=== PATIENT | female | born 2000 | race Caucasian/White ===

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

== ENCOUNTER 2023-04-20 14:36 | Emergency (ER) | payer MEDICAID, SELFPAY ==
[2023-04-20 14:37] VITALS: BP 140/85; PULSE 81; RESP 16; TEMP 36.2; O2SAT 100; BMI 33.6
--- NOTE | 2023-04-20 14:40 | RAD_ITS ---
HISTORY: PAIN. TECHNIQUE: XR Ankle Min 3 Views. COMPARISON: 06/11/2020. FINDINGS: BONES : No acute fracture identified. No osteochondral lesion of the talar dome. JOINTS: No dislocation. Joint spaces maintained. SOFT TISSUES: Diffuse soft tissue swelling. RAD/Ankle min 3 Views IMPRESSION: No acute fracture or dislocation identified in the left ankle. Electronically Signed: Valeri Malone MD at 14:56 EST ,
--- NOTE | 2023-04-20 17:10 | EDS_ITS ---
HPI History of Present Illness Chief Complaint: Lower Extremity Injury Informant: patient Narrative Narrative: 22-year-old female presenting to the emergency room with left ankle pain and injury. Patient states over the past month she has had 3 inversion injuries to the left ankle. Each resulting with pain near the lateral malleolus. Patient states he is continue to treated conservatively but today she felt a pop in thought that it was time to get evaluated. She denies any knee pain. No medial pain. PFSH PFSH Home Medications cephalexin 500 mg capsule 500 mg PO Q6 #40 CAPSULES 09/10/20 [Rx Last Taken Unknown] cranberry 400 mg capsule 400 mg PO DAILY 09/18/20 [History Last Taken Unknown] cyanocobalamin (vitamin B-12) 1,000 mcg capsule 1,000 mcg PO DAILY 09/18/20 [History Last Taken Unknown] cyclobenzaprine 10 mg tablet 10 mg PO TID PRN muscle spasm #12 tabs 09/18/20 [Rx Last Taken Unknown] Allergy/AdvReac Type Severity Reaction Status Date / Time No Known Allergies Allergy Verified 04/20/23 14:38 Family History Grandfather Heart disease Diabetes Mother Asthma Surgical History History of placement of ear tubes Social History household members: family and friend(s) current occupational status: employed current occupation: [employer] history of recent travel: No sexually active: Yes Smoking Status: Never smoker alcohol intake: never substance use type: does not use diet: low carbohydrate what type of physical activity do you participate in: none seatbelt use: always do you feel safe at home: Yes additional social history: single ROS ROS ED Constitutional Constitutional ED: Denies chills or weight loss Eyes Eyes: Denies change in vision or diplopia ENT ENT ED: Denies ear pain, rhinorrhea or sore throat Cardiovascular Cardiovascular: Denies chest pain, orthopnea, palpitations or racing heartbeat Respiratory/Chest Respiratory/Chest: Denies cough, dyspnea or orthopnea Gastrointestinal Gastrointestinal: Denies abdominal pain, diarrhea, nausea or vomiting Genitourinary Genitourinary ED: Denies dysuria, hematuria or urinary frequency Musculoskeletal Musculoskeletal: Reports other Details: See history of present illness ; Denies arthralgias or myalgias Integumentary Denies abscess or rash Neurologic Neurologic: Denies headache(s) or weakness Psychiatric Psychiatric: Denies anxiety, depression, suicidal ideation or suicidal thoughts Endocrine Endocrinology: Denies polydipsia, polyphagia or polyuria Allergic/Immunologic Allergic/Immunologic ED: Denies mouth swelling, tongue swelling or urticaria EXAM Physical Exam Const Vital Signs: 04/20/23 14:37 Temperature 97.2 F L Temperature Source Temporal Pulse Rate 81 Respiratory Rate 16 Blood Pressure 140/85 H Blood Pressure Mean 103 Pulse Ox 100 Oxygen Delivery Method Room Air Positive well nourished and well developed General Appearance ED: well developed HEENT Reports normocephalic, head/scalp atraumatic and moist mucous membranes Eyes PERRL and EOMs intact bilaterally Neck no lymphadenopathy, supple and no JVD Resp normal respiratory effort and clear to auscultation bilaterally Cardio regular rate, regular rhythm and no murmurs GI normal to inspection, nondistended, normoactive bowel sounds and non-tender Palpation: soft Back/Spine no CVA tenderness and normal ROM Extremity Extremity Narrative: Patient has no medial or posterior malleoli or tenderness. Achilles appears intact both on palpation and functionally with negative Alejo's test. No fifth metatarsal pain or fibular head pain. There is tenderness anteriorly and inferiorly to the lateral malleolus with some mild swelling. Neurovascularly intact General Extremety ED: Negative for edema General Extremity: Negative for edema Neuro oriented x3 and CN's II-XII intact bilaterally Sensorium / Orientation: alert Motor Exam: strength 5/5 throughout Psych mental status grossly normal Mood & Affect: Negative for depressed or tearful Skin no rashes or lesions noted and no wounds MDM MDM MDM Narrative Medical decision making narrative: My independent interpretation of the plain films of the left ankle is no acute fracture. Patient placed in an air splint. I advised her that she has injured the ankle multiple times in 1 month. This will most likely require greater than 10 to 14 days typically required for a basic ankle sprain. I recommend follow-up with primary care if continued symptoms. She may need physical therapy if immobilization is extended. Radiography Diagnostic Testing: Clinical Impression(s) from Imaging Studies Ankle X-Ray 04/20/23 14:40 IMPRESSION: No acute fracture or dislocation identified in the left ankle. Electronically Signed: Valeri Malone MD at 14:56 EST , Discharge Plan Triage Chief Complaint: Lower Extremity Injury ED Provider: Antoni Cameron Dx/Rx/DC Orders Clinical Impression: Ankle sprain, Acute ankle pain Instructions: ED Ankle Sprain (Adult) Prescriptions: No Action cranberry 400 mg capsule 400 mg PO DAILY Rx Instructions: administer with a meal cyanocobalamin (vitamin B-12) 1,000 mcg capsule 1,000 mcg PO DAILY cyclobenzaprine 10 mg tablet 10 mg PO TID PRN (Reason: muscle spasm) Qty: 12 0RF cephalexin 500 MG capsule 500 mg PO Q6 Qty: 40 0RF Primary Care Provider: Bryan José Referrals: Bryan José MD [Primary Care Provider] - 10-14 Days if not better Disposition Disposition: Home, Self Care
== END 2023-04-20 17:37 | disposition home or self-care (01) ==
LOC: ED 17:22
PROVIDERS: Emergency Provider Emergency Medicine; PCP Family Medicine; Visit Provider Emergency Medicine
DX: S93.402A Sprain of unspecified ligament of left ankle, initial encounter (principal); X58.XXXA Exposure to other specified factors, initial encounter
CPT/HCPCS: 73610; 99283

== ENCOUNTER 2024-03-21 06:30 | Emergency (ER) | payer SELFPAY ==
[2024-03-21 06:32] VITALS: BP 125/77; PULSE 100; RESP 16; TEMP 36.8; O2SAT 94; BMI 33.8
--- NOTE | 2024-03-21 06:49 | EKG12_ITS ---
Test Reason : SYNCOPE Blood Pressure : / mmHG Vent. Rate : 079 BPM Atrial Rate : 079 BPM P-R Int : 180 ms QRS Dur : 082 ms QT Int : 368 ms P-R-T Axes : 018 027 011 degrees QTc Int : 421 ms Normal sinus rhythm Normal ECG Confirmed by INDIRA DUMONT MD ([id number]), staff editor TIA BATES ([id number]) on 03/23/2024 9:45:37 AM Also confirmed by INDIRA DUMONT MD ([id number]), staff editor TIA BATES ([id number]) on 03/23/2024 9:53:38 AM Referred By: Confirmed By:INDIRA DUMONT MD
--- NOTE | 2024-03-21 06:50 | EDS_ITS ---
HPI History of Present Illness Chief Complaint: Syncope Detail of Chief Complaint: Syncope Informant: patient Narrative Narrative: Patient presents with syncope that occurred last evening and then again this morning. Patient states that last night she had gotten out of the shower and felt lightheaded and dizzy and folic her heart was racing and then remembers waking up on the ground. No loss of consciousness. Patient states she has been feeling hot and cold since last evening but otherwise has not had fever or cough. She tells me she had a syncopal episode about a year ago at which time she was seen at [facility] and wore a nuclear monitoring technician for 30 days but no real etiology was found. Patient states this morning she woke up and got out of bed and was lightheaded and dizzy and then passed out again for short time. No injury. Again felt like her heart was racing at the time. Patient's last menstrual period was last week and does not think she is . PFSH PFSH Home Medications ?Medication ?Instructions ?Recorded ?Last Taken ?Type NK 03/21/24 Unknown History Allergy/AdvReac Type Severity Reaction Status Date / Time No Known Allergies Allergy Verified 04/20/23 14:38 Family History Grandfather Heart disease Diabetes Mother Asthma Surgical History History of placement of ear tubes Social History household members: family and friend(s) current occupational status: employed current occupation: [employer] history of recent travel: No sexually active: Yes Smoking Status: Current every day smoker tobacco type: cigarettes alcohol intake: never substance use type: does not use diet: low carbohydrate what type of physical activity do you participate in: none seatbelt use: always do you feel safe at home: Yes additional social history: single ROS ROS ED Review of Systems ROS Unobtainable: other Constitutional Constitutional ED: Reports lethargy; Denies chills, fever(s), sweats or weight loss Eyes Eyes: Denies blurry vision, change in vision or diplopia ENT ENT ED: Denies rhinorrhea or sore throat Cardiovascular Cardiovascular: Reports racing heartbeat; Denies chest pain or orthopnea Respiratory/Chest Respiratory/Chest: Denies cough, dyspnea, dyspnea on exertion, orthopnea or sputum Gastrointestinal Gastrointestinal: Denies abdominal pain, diarrhea, nausea or vomiting Genitourinary Genitourinary ED: Denies dysuria, hematuria or urinary frequency Musculoskeletal Musculoskeletal: Denies arthralgias, back pain, myalgias or neck pain Integumentary Denies abscess, Abrasions or rash Neurologic Neurologic: Denies headache(s) or weakness Psychiatric Psychiatric: Denies anxiety, depression or suicidal thoughts Endocrine Endocrinology: Denies polydipsia, polyphagia or polyuria Hematologic/Lymphatic Hematologic/Lymphatic: Denies easy bleeding, easy bruising or lymphadenopathy Allergic/Immunologic Allergic/Immunologic ED: Denies mouth swelling, tongue swelling or urticaria EXAM Physical Exam Const Vital Signs: 03/21/24 06:32 03/21/24 06:36 Temperature 98.3 F Temperature Source Oral Pulse Rate 100 Respiratory Rate 16 Respiratory Effort Normal Respiratory Pattern Normal Blood Pressure 125/77 H Blood Pressure Mean 93 Pulse Ox 94 Oxygen Delivery Method Room Air Positive well nourished and well developed General Appearance ED: well developed and NAD HEENT Reports TM's clear and moist mucous membranes normocephalic and atraumatic; Negative for trauma or tenderness Tympanic Membrane ED: Yes TM's clear Eyes PERRL and EOMs intact bilaterally General Eye ED: Negative for pale conjunctiva or scleral icterus Neck no lymphadenopathy, supple and no JVD General: Negative for tenderness Chest Wall inspection of chest normal and palpation of chest normal Chest: Negative for tenderness Resp normal respiratory effort and clear to auscultation bilaterally Effort and Inspection: Negative for respiratory distress or pain with movement Auscultation: Negative for rhonchi, wheezes or diminished lung sounds Cardio regular rate, regular rhythm, S1 normal heart sound, S2 normal heart sound and no murmurs Peripheral Pulses: pulses 2+ throughout GI normal to inspection, nondistended, normoactive bowel sounds, soft to palpation, non-tender, non-distended and no masses Back/Spine no CVA tenderness and no thoracic nor lumbar tenderness Extremity normal to inspection General Extremety ED: Negative for edema General Extremity: Negative for edema Neuro oriented x3, CN's II-XII intact bilaterally, no sensory deficits noted and gait normal Sensorium / Orientation: awake, alert, oriented to person, oriented to place and oriented to time Motor Exam: strength 5/5 throughout and strength abnormal Psych mental status grossly normal Skin no rashes or lesions noted and no wounds MDM MDM MDM Narrative Medical decision making narrative: Patient presents with syncopal episode twice and left 12 hours. She had a similar episode a year ago and wore a nuclear monitoring technician for 30 days and no etiology was found. Clinically she looks well. EKG obtained arrival showed a sinus rhythm with no acute ST segment changes and no evidence of delta wave. Patient will have basic labs ordered as well as test. Care of patient turned over to morning physician awaiting lab results and final position. Orthostatic vital signs also were EKG Initial EKG: Attestation: I personally reviewed and interpreted this EKG as follows: Comments: Sinus rhythm with ventricular rate of 79 bpm with no acute ST segment changes Discharge Plan Triage Chief Complaint: Syncope Other Complaint: Cold Sx ED Provider: Sendy Lambert Dx/Rx/DC Orders Prescriptions: No Action NK Primary Care Provider: Care Physician,No Primary Referrals: Jose Luis José MD [Med Staff - Student Success Counselor] - Print Language: [place] Island[place]
[2024-03-21] MEDS: 0.9% Normal Saline (1000mL) 1,000 ML 1000 ML IV (07:01)
[2024-03-21 07:24] LABS: Absolute Lymphocyte Count 1.14 X10^3/uL (0.83-4.51); Absolute Neutrophil Count 6.6 X10^3/uL (2.0-7.7); Basophil# 0.03 X10^3/uL; Basophil% 0.4 % (0-1); Eosinophil# 0.01 X10^3/uL; Eosinophils% 0.1 % (0-5); Hematocrit 35.2 % (37-47); Hemoglobin 11.2 g/dL (12.0-15.0); Lymphocyte # 1.14 X10^3/ul (0.83-4.51); Lymphocyte % 13.4 % (19-41); Mean Corp Hgb Conc 31.8 g/dL (32-36); Mean Corpuscular Hgb 25.9 pg (27.0-32.0); Mean Corpuscular Volume 81.3 fL (81-99); Mean Platelet Vol. 9.4 fl (6.2-12.0); Monocyte# 0.74 X10^3/uL; Monocyte% 8.7 % (0-10); NRBC Flagged by Analyzer 0 % (0-5); Neutrophil # 6.56 X10^3/uL (2.7-7.7); Platelet Count 231 K/mm3 (150-450); RBC Distribution Width CV 14.3 % (11.6-14.6); RBC Distribution Width SD 42.7 fl (35.1-43.9); Red Blood Count 4.33 M/mm3 (4.2-5.4); White Blood Count 8.5 K/mm3 (4.4-11.0)
[2024-03-21 07:34] LABS: Internal QC Validated? YES +Cl - CLEAR BKGD; Pregnancy, Serum, hCG Quali. NEGATIVE Negative
[2024-03-21 07:37] LABS: Anion Gap 10 (5-15); BUN 11 mg/dL (7-18); BUN/Creat Ratio 11.6 RATIO (10-20); Calcium,Total 9.4 mg/dL (8.5-10.1); Chloride 103 mmol/L (98-107); Creatinine, Serum 0.95 mg/dL (0.55-1.02); EST Glomerular Filtration Rate 79 mL/min (>60); Est Glom Filt Rate - Afr Amer 95 mL/min (>60); Estimated Creatinine Clearance 120.26 ml/min; Glucose 111 mg/dL (74-106); Potassium 3.9 mmol/L (3.5-5.1); Sodium Level 136 mmol/L (136-145); Troponin-I HS < 3 pg/mL (3.0-54.0)
[2024-03-21 08:10] LABS: D-Dimer Quantitative (DVT/PE) 0.66 FEU/ug/m (0.27-0.49)
--- NOTE | 2024-03-21 08:30 | CT_ITS ---
STUDY: CTA CHEST REASON FOR EXAM: Female, 23 years old. Elevated D-dimer RADIATION DOSAGE (If Supplied By Facility): CTDIvol = ( 11.74 ) mGy, DLP = ( 423.01 ) mGycm TECHNIQUE: The examination was performed with the intravenous administration of IV 100mL Isovue-370. Post-processing of the angiographic images was performed, with multiplanar reformation and 3D reconstruction. The protocol utilizes one or more of the following dose reduction techniques: automated exposure control, adjustment of mA and/or kV according to patient size,and/or use of iterative reconstruction technique. COMPARISON: No relevant prior comparison study available FINDINGS: Normal enhancement of the main pulmonary artery and right and left pulmonary arteries. Normal enhancement of the bilateral peripheral pulmonary arteries. There is no demonstrated pulmonary embolism. Normal thoracic aorta and visualized great vessels. There is no demonstrated aortic dissection. Normal heart and pericardium. Normal mediastinum. Normal hilar regions. Normal visualized trachea and bronchi. Consolidation with loss of volume in the lingula could be due to pneumonia. There are no pleural effusions. Normal chest wall structures. No demonstrated acute osseous changes. Normal visualized upper abdomen. CT/CTA Chest W/WO Contrast IMPRESSION: 1. No evidence of pulmonary embolism or aortic dissection. 2. Consolidation in the lingula with loss of volume could be due to pneumonia. Electronically Signed: Yuriy Aevndaño MD at 8:54 EDT ,
[2024-03-21 08:31] VITALS: BP 127/74; PULSE 81; RESP 18; O2SAT 98
[2024-03-21 08:48] VITALS: BP 127/74; BP 129/75; BP 130/86; PULSE 80; PULSE 82; PULSE 89
[2024-03-21 09:47] VITALS: BP 129/81; PULSE 78; RESP 18; TEMP 36.8; O2SAT 98
== END 2024-03-21 09:55 | disposition home or self-care (01) ==
PROVIDERS: Emergency Medicine; Emergency Provider Emergency Medicine; Visit Provider Emergency Medicine
DX: R55 Syncope and collapse (principal); F17.210 Nicotine dependence, cigarettes, uncomplicated
CPT/HCPCS: 71275; 80048; 84484; 84703; 85025; 85379; 93005; 96360; 96361; 99285; J7030; Q9967; A4216

== ENCOUNTER → 2024-03-21 | Outpatient (CLI) | payer SELFPAY | END | disposition home or self-care (01) | PROVIDERS: Referring Provider Emergency Medicine; Visit Provider Emergency Medicine | DX: R55 Syncope and collapse (principal) | CPT/HCPCS: 93225; 93226 ==

== ENCOUNTER 2024-09-29 11:41 | Emergency (ER) | payer OTHER, SELFPAY ==
[2024-09-29 11:42] VITALS: BP 126/85; PULSE 64; RESP 15; TEMP 36.6; O2SAT 99; BMI 32.5
--- NOTE | 2024-09-29 12:14 | EKG12_ITS ---
Test Reason : CP Blood Pressure : */* mmHG Vent. Rate : 65 BPM Atrial Rate : 65 BPM P-R Int : 190 ms QRS Dur : 80 ms QT Int : 394 ms P-R-T Axes : 48 74 61 degrees QTcB Int : 409 ms Normal sinus rhythm with sinus arrhythmia Normal ECG Confirmed by JULIA RAPHAEL, INDIRA ([id number]), editor farm journal TIA BATES ([id number]) on 09/30/2024 8:17:12 AM Referred By: Nicola Breen Confirmed By: INDIRA DUMONT MD
--- NOTE | 2024-09-29 12:14 | EX.ED.DYSGE1 ---
HPI History of Present Illness Chief Complaint: Syncope Informant: patient Onset/Context/Timing Onset: Today Context: Sudden Onset Current Severity: Gone Maximum Severity: Mild Narrative Narrative: 24-year-old female past medical history of prior syncope without specific diagnosis with prior outpatient cardiac monitoring. States that yesterday she started having sharp left-sided chest pain that the particular makes it better or worse. Today at home had a syncopal episode lasted about 1 to 2 minutes. Fell to the ground denies any injuries. No prior history of DVT or PE. No prior cardiac history. No history of seizures. Denies any headache. Did not bite her tongue. No incontinence. Prior similar symptoms: Yes Recent Illness/Hospitalization: No PFSH PFSH Medical History no medical history no medical history Home Medications ?Medication ?Instructions ?Recorded ?Last Taken ?Type ascorbate calcium (vitamin C) 500 500 mg PO DAILY 09/29/24 09/29/24 History mg tablet cyanocobalamin (vitamin B-12) 500 500 mcg PO DAILY 09/29/24 09/29/24 History mcg tablet (B-12 DOTS) alek (Zingiber officinalis) 500 500 mg PO DAILY 09/29/24 09/29/24 History mg capsule Allergy/AdvReac Type Severity Reaction Status Date / Time No Known Allergies Allergy Verified 09/29/24 11:44 Family History Grandfather Heart disease Diabetes Mother Asthma Surgical History History of placement of ear tubes Social History household members: family and friend(s) current occupational status: employed current occupation: [employer] history of recent travel: No sexually active: Yes Smoking Status: Light Smoker (<10/day) alcohol intake: never substance use type: does not use diet: low carbohydrate what type of physical activity do you participate in: none seatbelt use: always do you feel safe at home: Yes additional social history: single ROS ROS ED ROS Narrative Denies recent illness. Left-sided chest pain that began yesterday. Constitutional Constitutional ED: Denies chills or fever(s) Eyes Eyes: Denies blurry vision ENT ENT ED: Denies ear pain Cardiovascular Cardiovascular: Reports chest pain; Denies palpitations or racing heartbeat Respiratory/Chest Respiratory/Chest: Denies cough, dyspnea or dyspnea on exertion Gastrointestinal Gastrointestinal: Denies abdominal pain, constipation, diarrhea, melena, nausea or vomiting Genitourinary Genitourinary ED: Denies dysuria or hematuria Musculoskeletal Musculoskeletal: Denies arthralgias, back pain, myalgias or neck pain Integumentary Denies abscess or Abrasions Neurologic Neurologic: Denies headache(s) Psychiatric Psychiatric: Denies anxiety or depression Endocrine Endocrinology: Denies cold intolerance Hematologic/Lymphatic Hematologic/Lymphatic: Reports none Allergic/Immunologic Allergic/Immunologic ED: Denies mouth swelling, tongue swelling or urticaria EXAM Physical Exam Narrative Exam Narrative: 22-year-old female sitting upright in bed. Vital signs are stable afebrile. Pulse ox is 99% on room air no hypoxia. She is in no distress. No family is present. H EENT exam pupils round reactive light. Extra motions are intact. No trauma to her face or scalp. Nontender. No facial droop. Normal speech. Neck nontender. No lymphadenopathy. Back nontender. Lungs clear to auscultation bilaterally. Heart regular rhythm no murmur rate about 65. Chest wall and ribs she has mild reproducible left-sided chest wall pain but there is no ecchymosis or bruising no crepitance or subcu air. No redness or discoloration. No bony deformity. Abdomen is soft and nontender. Moving all 4 extremities. 5 out of 5 movie critic strength. Dorsi plantarflexion intact. Calves are nontender without edema. Equal symmetrical radial pulses. Neurologically she is awake alert. No focal motor deficits. Const Vital Signs: 09/29/24 11:42 09/29/24 12:14 09/29/24 12:16 Temperature 97.8 F Temperature Source Temporal Pulse Rate 64 Respiratory Rate 15 Respiratory Effort Short of Breath Blood Pressure 126/85 H Blood Pressure Mean 98 Pulse Ox 99 Oxygen Delivery Method Room Air Room Air 09/29/24 12:48 09/29/24 13:03 09/29/24 14:12 Temperature Temperature Source Pulse Rate 65 61 78 Respiratory Rate 18 25 H Respiratory Effort Blood Pressure 114/86 H 115/72 109/70 Blood Pressure Mean 95 86 83 Pulse Ox 98 Oxygen Delivery Method Room Air Positive well nourished and well developed; Negative for cachectic, contractures or unkempt General Appearance ED: well developed and NAD; Negative for unkempt, cachectic, contractures, cyanotic, diaphoretic or pallor Nutritional Appearance: Negative for cachectic HEENT Reports moist mucous membranes Negative for trauma or tenderness Eyes EOMs intact bilaterally General Eye ED: Negative for pale conjunctiva or scleral icterus Neck no lymphadenopathy, supple and no JVD General: Negative for tenderness Chest Wall inspection of chest normal; Negative for palpation of chest normal Chest Narrative: Mild reproducible left-sided chest pain. Normal in appearance. Resp normal respiratory effort and clear to auscultation bilaterally Effort and Inspection: Negative for retractions Auscultation: Negative for rales, rhonchi, wheezes or diminished lung sounds Cardio regular rate, regular rhythm, S1 normal heart sound, S2 normal heart sound and no murmurs GI normal to inspection, nondistended, normoactive bowel sounds, non-tender, non-distended and no masses Palpation: soft; Negative for tender, guarding or rebound tenderness present Back/Spine no CVA tenderness General Back: Negative for CVA tenderness Cervical Spine: Negative for cervical spine tenderness Thoracic Spine / Upper Back: Negative for thoracic spinal tenderness Lumbar Spine / Lower Back: Negative for lumbar spinal tenderness Extremity normal to inspection Extremity Narrative: Calves nontender. No edema. No cords. General Extremety ED: Negative for edema or tenderness General Extremity: Negative for edema Neuro oriented x3, CN's II-XII intact bilaterally and no sensory deficits noted Sensorium / Orientation: alert; Negative for orientation impaired, lethargic or stuporous Motor Exam: strength 5/5 throughout Psych mental status grossly normal Appearance: Negative for unkempt Attitude: No agitated Mood & Affect: Negative for anxious or tearful Skin no rashes or lesions noted, no wounds and skin turgor normal General Skin Exam: elasticity normal; Negative for jaundice or pallor Lesions: No lesion noted Rashes: No rashes noted Trauma: Negative for abrasion Wounds: Negative for wounds noted MDM MDM MDM Narrative Medical decision making narrative: 24-year-old female syncopal episode. Benign exam. Atypical chest pain. Do not think this is an MO. To go through a cardiac workup with a D-dimer of is negative she will be discharged home. She has had syncopal episodes intermittently the last 2 years with negative workups. Exam is benign other than mild reproducible chest wall pain. Repeat exam around 2:25 PM unchanged unremarkable. Overall her test results. She comfortable being discharged home. History & Record Review Additional record(s) reviewed:: Prior inpatient record, Prior outpatient record, Prior ED visit and Prior labs Lab Data Attestation: I reviewed the patient's lab results. Lab results narrative: CBC unremarkable. White count of 10. H&H 12.5 and 38. Platelets 304. Chemistries show sodium 135. Gap 9. Normal BUN of 10 creatinine 0.78. Glucose 91. Troponin less than 6. D-dimer normal at 0.46. Labs: Laboratory Results - last 24 hr 09/29/24 12:30 WBC 10.6 RBC 4.68 Hgb 12.5 Hct 38.0 MCV 81.2 MCH 26.7 L MCHC 32.9 RDW Std Deviation 39.9 RDW Coeff of Rigoberto 13.6 Plt Count 304 MPV 9.7 Immature Gran % (Auto) 0.400 Neut % (Auto) 72.9 H Lymph % (Auto) 20.6 [place] % (Auto) 5.0 Eos % (Auto) 0.8 Baso % (Auto) 0.3 Absolute Neuts (auto) 7.7 Absolute Lymphs (auto) 2.18 Nucleated RBC % 0 D-Dimer Quant (PE/DVT) 0.46 Sodium 135 Potassium 4.3 Chloride 102 Carbon Dioxide 23.9 Anion Gap 9 BUN 10 Creatinine 0.78 Estim Creat Clear Calc 142.23 Est GFR (MDRD) Non-Af 110 BUN/Creatinine Ratio 13.1 Glucose 91 Calcium 9.6 Troponin T High Sens < 6 Radiography Chest X-Ray - ED: 1 View, Read by ED Physician, Read by Radiologist, Heart, Lungs, Mediastinum, Bony Structures and No Acute Disease Diagnostic Testing: Clinical Impression(s) from Imaging Studies Chest X-Ray 09/29/24 12:48 IMPRESSION: No visible acute cardiopulmonary findings Reading Location: [facility] Chest x-ray, portable, single view interpreted both by myself and radiologist shows no acute abnormality. Normal cardiac silhouette. Normal lung cruz. Rhythm Strip Rhythm Strip: Sinus Rhythm Rate: 65 Ectopy: None EKG Initial EKG: Attestation: I personally reviewed and interpreted this EKG as follows: Interpretation: Sinus Rhythm and No Acute Injury Pattern Comments: Normal sinus rhythm rate of 65 no acute signs of MO or ischemia. Discharge Plan Triage Chief Complaint: Syncope ED Provider: Nicola Breen Dx/Rx/DC Orders Clinical Impression: Syncope Instructions: ED Fainting, Uncertain Cause Prescriptions: No Action alek (Zingiber officinalis) 500 mg capsule 500 mg PO DAILY ascorbate calcium (vitamin C) 500 mg tablet 500 mg PO DAILY cyanocobalamin (vitamin B-12) [B-12 DOTS] 500 mcg tablet 500 mcg PO DAILY Primary Care Provider: Care Physician,Carmela Primary Referrals: Care Physician,No Primary [Primary Care Provider] - Activity Restrictions/Additional Instructions: Follow-up with your primary care provider. Your test today, EKG and chest x-ray were all unremarkable. No driving at this time to you are cleared. Print Language: Thai Disposition Disposition: Home, Self Care
[2024-09-29 12:41] LABS: Absolute Lymphocyte Count 2.18 X10^3/uL (0.83-4.51); Absolute Neutrophil Count 7.7 X10^3/uL (2.0-7.7); Basophil# 0.03 X10^3/uL; Basophil% 0.3 % (0-1); Eosinophil# 0.08 X10^3/uL; Eosinophils% 0.8 % (0-5); Hemoglobin 12.5 g/dL (12.0-15.0); Lymphocyte # 2.18 X10^3/ul (0.83-4.51); Lymphocyte % 20.6 % (19-41); Mean Corp Hgb Conc 32.9 g/dL (32-36); Mean Corpuscular Hgb 26.7 pg (27.0-32.0); Mean Corpuscular Volume 81.2 fL (81-99); Mean Platelet Vol. 9.7 fl (6.2-12.0); Monocyte# 0.53 X10^3/uL; NRBC Flagged by Analyzer 0 % (0-5); Neutrophil # 7.73 X10^3/uL (2.7-7.7); Neutrophil % 72.9 % (47-70); Platelet Count 304 K/mm3 (150-450); RBC Distribution Width CV 13.6 % (11.6-14.6); RBC Distribution Width SD 39.9 fl (35.1-43.9); Red Blood Count 4.68 M/mm3 (4.2-5.4); White Blood Count 10.6 K/mm3 (4.4-11.0)
[2024-09-29 12:48] VITALS: BP 114/86; PULSE 65; RESP 18
--- NOTE | 2024-09-29 12:48 | RAD_ITS ---
PROCEDURE: CHEST 1 VIEW (PORTABLE), 09/29/2024 REASON FOR EXAM: CHEST PAIN TECHNIQUE: A single portable AP view of the chest was obtained. COMPARISON: 03/21/2024 FINDINGS: Heart: Unremarkable. Mediastinum: Unremarkable. Lungs/pleura: No focal consolidation. No sizeable pleural effusion or visible pneumothorax. Bones: Unremarkable. Lines and support devices: None. Other: None. RAD/Chest 1 View (Portable) IMPRESSION: No visible acute cardiopulmonary findings Reading Location: [id number]
[2024-09-29 12:56] LABS: D-Dimer Quantitative (DVT/PE) 0.46 FEU/ug/m (0.27-0.49)
[2024-09-29 13:03] VITALS: BP 115/72; PULSE 61; RESP 25; O2SAT 98
[2024-09-29 13:15] LABS: Anion Gap 9 (5-15); BUN 10 mg/dL (4-19); BUN/Creat Ratio 13.1 RATIO (10-20); Calcium,Total 9.6 mg/dL (7.6-11.0); Carbon Dioxide 23.9 mmol/L (21.0-32.0); Chloride 102 mmol/L (98-108); Creatinine, Serum 0.78 mg/dL (0.70-1.20); EST Glomerular Filtration Rate 110 (>60); Estimated Creatinine Clearance 142.23 ml/min (50-250); Glucose 91 mg/dL (70-99); Potassium 4.3 mmol/L (3.3-5.1); Sodium Level 135 mmol/L (133-145); Troponin T High Sensitivity < 6 ng/L (<=14)
--- NOTE | 2024-09-29 14:02 | CM.ED ---
Social work Reason for referral: no PCP Referral source: case find This SW identified patient's lack of PCP and need for resources. This SW entered patient's room, introducing self and role at [facility]. Patient welcomed SW visit and stated reason for today's visit. Patient stated having a long history of ear issues and having difficulty being seen by specialists. Patient confirmed lacking a PCP due to just recently obtaining insurance and patient accepted resources of [facility] Provider Directory and [employer] information. Patient denied further needs at this time. Melisa Morrison, FINGERPRINT TECHNICIAN, [employer]
[2024-09-29 14:12] VITALS: BP 109/70; PULSE 78
[2024-09-29 14:49] VITALS: BP 129/81; PULSE 76; RESP 14; TEMP 36.4; O2SAT 100
== END 2024-09-29 14:49 | disposition home or self-care (01) ==
PROVIDERS: Emergency Provider Emergency Medicine; Referring Provider Emergency Medicine; Visit Provider Emergency Medicine
DX: R55 Syncope and collapse (principal); F17.200 Nicotine dependence, unspecified, uncomplicated
CPT/HCPCS: 71045; 80048; 84484; 85025; 85379; 93005; 99283; A4216

== ENCOUNTER 2024-10-28 14:54 | Emergency (ER) | payer OTHER, SELFPAY ==
[2024-10-28 14:55] VITALS: BP 135/95; PULSE 89; RESP 15; TEMP 36.6; O2SAT 100; BMI 32.6
--- NOTE | 2024-10-28 15:07 | EX.ED.UPPERE ---
HPI History of Present Illness HPI Narrative: Patient presents with injury to her left index finger that occurred today. Patient states she got it caught in a metal door at work. Patient states her pain is mainly over the distal phalanx of her left index finger. Patient admits to some tingling over the tip of her left index finger. Patient describes her pain as sharp. Patient states it is worse whenever she bumps it. Patient states nothing seems to help with the pain. Patient states she did have some bleeding earlier from underneath her nail plate. Patient denies any other injuries. Chief Complaint: Upper Extremity Injury Informant: patient Occured/Mechanism Mechanism/Context: Yes crush Comment: Closed in a metal door Onset/Context/Timing Onset: Today Context: Sudden Onset Timing: Continuous Quality of Pain: Sharp Location: Distal phalanx left index finger Worsened by: Bumping it Relieved by: Nothing Associated Symptoms Associated Symptoms: Positive for Parasthesia; Negative for Weakness or Loss of Funtion PFSH PFSH Medical History no medical history no medical history Home Medications ?Medication ?Instructions ?Recorded ?Last Taken ?Type ascorbate calcium (vitamin C) 500 500 mg PO DAILY 09/29/24 09/29/24 History mg tablet cyanocobalamin (vitamin B-12) 500 500 mcg PO DAILY 09/29/24 09/29/24 History mcg tablet (B-12 DOTS) alek (Zingiber officinalis) 500 500 mg PO DAILY 09/29/24 09/29/24 History mg capsule Allergy/AdvReac Type Severity Reaction Status Date / Time No Known Allergies Allergy Verified 10/28/24 15:02 Family History Grandfather Heart disease Diabetes Mother Asthma Surgical History History of placement of ear tubes Social History household members: family and friend(s) current occupational status: employed current occupation: [employer] history of recent travel: No sexually active: Yes Smoking Status: Light Smoker (<10/day) alcohol intake: never substance use type: does not use diet: low carbohydrate what type of physical activity do you participate in: none seatbelt use: always do you feel safe at home: Yes additional social history: single ROS ROS ED Constitutional Constitutional ED: Denies chills or fever(s) Eyes Eyes: Denies blurry vision or change in vision ENT ENT ED: Denies rhinorrhea or sore throat Cardiovascular Cardiovascular: Denies chest pain or palpitations Respiratory/Chest Respiratory/Chest: Denies cough or dyspnea Gastrointestinal Gastrointestinal: Denies nausea or vomiting Genitourinary Genitourinary ED: Denies dysuria or hematuria Musculoskeletal Musculoskeletal: Denies back pain or neck pain Integumentary Denies abscess or rash Neurologic Neurologic: Denies headache(s) or weakness Allergic/Immunologic Allergic/Immunologic ED: Denies mouth swelling or urticaria EXAM Physical Exam Const Vital Signs: 10/28/24 14:55 Temperature 97.8 F Temperature Source Temporal Pulse Rate 89 Respiratory Rate 15 Blood Pressure 135/95 H Blood Pressure Mean 108 Pulse Ox 100 Oxygen Delivery Method Room Air Positive well nourished and well developed General Appearance ED: well developed and NAD HEENT Reports moist mucous membranes Neck full ROM and supple Extremity Extremity Narrative: There is tenderness palpation of the distal phalanx of the left index finger. There is some mild edema and ecchymosis. There is no bony crepitance or step-off. There is no deformity noted. Range of motion was limited in flexion of the DIP joint secondary to pain. Sensation was diminished to light touch in the distal phalanx of the left index finger. There is good range of motion of the PIP and MP joints. Capillary refill was less than 2 seconds in all digits. Radial pulses are equal bilaterally. Neuro oriented x3, CN's II-XII intact bilaterally, moves all extremities and no focal motor deficits Sensorium / Orientation: alert Motor Exam: strength 5/5 throughout Psych mental status grossly normal MDM MDM MDM Narrative Medical decision making narrative: Differential diagnosis includes fracture, contusion, sprain, and tendon rupture. X-rays of the left index finger will be obtained to assess for fracture. History & Record Review Additional record(s) reviewed:: Prior ED visit and Prior labs Radiography Diagnostic Testing: X-rays of the left index finger were obtained. There are 3 views. On my independent interpretation, there is no acute fracture or dislocation noted. Radiologist also interpreted the x-rays and agrees. Treatment and Re-Evaluation Narrative: Patient was advised of her findings. Patient was advised that there could be a tendon rupture. Patient was advised that the paresthesias are likely due to contusion of the nerve and this should resolve. Patient was instructed to ice and elevate the left index finger. Patient was instructed take Tylenol or ibuprofen as needed for pain. Patient was given aluminum foam splint. Patient was given referral to plastic surgery for follow-up care for possible tendon rupture. Patient was instructed to return if worse in any way. Patient understood and was agreeable with the plan. All questions were answered. Discharge Plan Triage Chief Complaint: Upper Extremity Injury ED Provider: Ben Garber Dx/Rx/DC Orders Clinical Impression: Contusion of left index finger, Nicotine vapor product user Instructions: ED Finger Contusion Prescriptions: No Action alek (Zingiber officinalis) 500 mg capsule 500 mg PO DAILY ascorbate calcium (vitamin C) 500 mg tablet 500 mg PO DAILY cyanocobalamin (vitamin B-12) [B-12 DOTS] 500 mcg tablet 500 mcg PO DAILY Primary Care Provider: Care Physician,No Primary Referrals: Yuniel Rao MD [Med Staff - Active Staff] - 3-5 Days Care Physician,No Primary [Primary Care Provider] - Print Language: Turkish Disposition Disposition: Home, Self Care Discharge Date/Time: 10/28/24 16:37
--- NOTE | 2024-10-28 15:30 | RAD_ITS ---
PROCEDURE: FINGER(S) MIN 2 VIEWS 10/28/2024 REASON FOR EXAM: INJURY/PAIN TECHNIQUE: Three views of the left 1st digit COMPARISON: None RAD/Finger(s) Min 2 Views IMPRESSION: No acute fracture or dislocations. Mild soft tissue edema. No radiographic fo reign body. Reading Location: [id number]
[2024-10-28 16:35] VITALS: BP 136/85; PULSE 72; RESP 18; TEMP 36.4; O2SAT 100
== END 2024-10-28 16:37 | disposition home or self-care (01) ==
PROVIDERS: Emergency Provider Emergency Medicine; Referring Provider Emergency Medicine; Visit Provider Emergency Medicine
DX: S60.022A Contusion of left index finger without damage to nail, initial encounter (principal); F17.290 Nicotine dependence, other tobacco product, uncomplicated; W23.2XXA Caught, crushed, jammed or pinched between a moving and stationary object, initial encounter; Y99.0 Civilian activity done for income or pay; Y92.89 Other specified places as the place of occurrence of the external cause
CPT/HCPCS: 73140; 99283

== ENCOUNTER → 2024-12-23 | Outpatient (CLI) | payer OTHER, SELFPAY ==
--- NOTE | 2024-12-23 10:21 | MRI_ITS ---
PROCEDURE: UPPER EXT/NO JT/ WO 12/23/2024 REASON FOR EXAM: POSSIBLE TENDON INJURY TECHNIQUE: LEFT UPPER EXT/NO JT/ WO Multiplanar and multisequence images were obtained without IV contrast administration. COMPARISON: COMPARISON: Left index finger radiographs 11/01/2024 and 10/28/2024 FINDINGS: Bone Marrow: There is no abnormal bone marrow signal. Soft Tissues: Mild edema about the proximal interphalangeal (PIP) joint of the index finger. Ligaments and Tendons: Collateral ligaments are intact. Flexor tendons are unremarkable, without evidence of jose alejandro injury. There is mild laxity of the central slip at the PIP joint of the index finger. No discrete tear of the central slip. MRI/Upper Ext/No Jt/ wo IMPRESSION: Mild laxity of the central slip at its insertion on the dorsal base of the left index finger PIP joint, without definite tear. There is associated soft tissue swelling about the index finger PIP joint. Reading Location: [id number]
== END | disposition home or self-care (01) ==
LOC: MRI 10:17
PROVIDERS: Referring Provider Surgery Plastic and Reconstructive Surgery; Visit Provider Surgery Plastic and Reconstructive Surgery
DX: S44.92XA Injury of unspecified nerve at shoulder and upper arm level, left arm, initial encounter (principal); S66.819A Strain of other specified muscles, fascia and tendons at wrist and hand level, unspecified hand, initial encounter
CPT/HCPCS: 73218

== ENCOUNTER 2025-01-09 11:59 | Emergency (ER) | payer OTHER, SELFPAY ==
[2025-01-09 11:59] VITALS: BP 127/72; PULSE 84; RESP 14; TEMP 36.1; O2SAT 98; BMI 34.0
--- NOTE | 2025-01-09 12:31 | US_ITS ---
PROCEDURE: TRANSVAGINAL NON- 01/09/2025 REASON FOR EXAM: RIGHT PELVIC PAIN TECHNIQUE: TRANSVAGINAL NON- COMPARISON: Prior study dated September 19, 2020. FINDINGS: Measurements: Uterus: 8.7 cm x 4.7 cm x 3.8 cm with a volume of 81.53 mL. There is a 1.4 cm x 1.7 cm 2.3 cm right uterine fibroid. Endometrial Thickness: 4 mm. It is hyperechoic. Right Ovary: 2.9 cm x 2.9 cm x 2.4 cm with a volume of 18.38 mL. Left Ovary: 2.9 cm x 2.9 cm x 2.4 cm with a volume of 10.39 mL. Uterus: Fibroid uterus. Endometrium: Unremarkable. Right ovary: Normal size and echotexture. Left ovary: Normal size and echotexture. Other: No large pelvic mass identified. US/Transvaginal Non- IMPRESSION: 1.4 cm 1.7 cm 2.3 cm fibroid in the right side of the uterus. Reading Location: [place] [id number]
--- NOTE | 2025-01-09 12:31 | US_ITS ---
PROCEDURE: TRANSVAGINAL NON- 01/09/2025 REASON FOR EXAM: RIGHT PELVIC PAIN TECHNIQUE: TRANSVAGINAL NON- COMPARISON: Prior study dated September 19, 2020. FINDINGS: Measurements: Uterus: 8.7 cm x 4.7 cm x 3.8 cm with a volume of 81.53 mL. There is a 1.4 cm x 1.7 cm 2.3 cm right uterine fibroid. Endometrial Thickness: 4 mm. It is hyperechoic. Right Ovary: 2.9 cm x 2.9 cm x 2.4 cm with a volume of 18.38 mL. Left Ovary: 2.9 cm x 2.9 cm x 2.4 cm with a volume of 10.39 mL. Uterus: Fibroid uterus. Endometrium: Unremarkable. Right ovary: Normal size and echotexture. Left ovary: Normal size and echotexture. Other: No large pelvic mass identified. US/Transvaginal Non- IMPRESSION: 1.4 cm 1.7 cm 2.3 cm fibroid in the right side of the uterus. Reading Location: [place] [id number]
--- NOTE | 2025-01-09 12:42 | ED.VIS.FEGU ---
HPI HPI - Female History of Present Illness Chief Complaint: Female C/O Informant: patient Narrative Narrative: 24-year-old female states she started her menstrual cycle earlier this morning, she has been having much more pain and unusually to the right and much heavier bleeding than typical. Her cycles are usually regular and this is the expected time. She states 2 or 3 years ago she was diagnosed with an ovarian cyst on the right side that was not intervened on operatively or pharmaceutically. She has never had any abdominal surgeries. She is not currently sexually active and denies having any recent vaginal discharge, urinary symptoms, or other illness or injury. She denies any fevers or chills recently. [facility] Medical History Ovarian cyst Complex regional pain syndrome Home Medications ?Medication ?Instructions ?Recorded ?Last Taken ?Type ascorbate calcium (vitamin C) 500 500 mg PO DAILY 09/29/24 09/29/24 History mg tablet cyanocobalamin (vitamin B-12) 500 500 mcg PO DAILY 09/29/24 09/29/24 History mcg tablet (B-12 DOTS) alek (Zingiber officinalis) 500 500 mg PO DAILY 09/29/24 09/29/24 History mg capsule norethindrone acetate 5 mg tablet See Rx Instructions .Route 01/09/25 Unknown Rx .COMPLEX #30 tabs Allergy/AdvReac Type Severity Reaction Status Date / Time No Known Allergies Allergy Verified 01/09/25 12:00 Family History Grandfather Heart disease Diabetes Mother Asthma Surgical History History of placement of ear tubes Social History household members: family and friend(s) current occupational status: employed current occupation: [employer] history of recent travel: No sexually active: Yes Smoking Status: Former smoker alcohol intake: never substance use type: does not use diet: low carbohydrate what type of physical activity do you participate in: none seatbelt use: always do you feel safe at home: Yes additional social history: single ROS ROS ED Constitutional Constitutional ED: Denies chills or fever(s) Eyes Eyes: Denies change in vision or diplopia ENT ENT ED: Denies rhinorrhea or sore throat Cardiovascular Cardiovascular: Denies chest pain, palpitations or syncope Respiratory/Chest Respiratory/Chest: Denies cough or dyspnea Gastrointestinal Gastrointestinal: Reports abdominal pain and nausea; Denies diarrhea or vomiting Genitourinary Genitourinary ED: Reports vaginal bleeding; Denies dysuria, hematuria or vaginal discharge Musculoskeletal Musculoskeletal: Denies back pain or neck pain Integumentary Denies abscess or rash Neurologic Neurologic: Denies headache(s), paresthesias or weakness Psychiatric Psychiatric: Denies anxiety or suicidal thoughts EXAM Physical Exam Const Vital Signs: 01/09/25 11:59 01/09/25 13:59 01/09/25 15:00 Temperature 96.9 F L Temperature Source Temporal Pulse Rate 84 82 83 Respiratory Rate 14 18 16 Blood Pressure 127/72 H 155/78 H 155/78 H Blood Pressure Mean 90 103 103 Pulse Ox 98 100 100 Oxygen Delivery Method Room Air Room Air Positive well nourished and well developed General Appearance ED: well developed and NAD HEENT Reports moist mucous membranes normocephalic and atraumatic Eyes PERRL and EOMs intact bilaterally Neck full ROM and supple Resp normal respiratory effort and clear to auscultation bilaterally Cardio regular rate, regular rhythm and no murmurs GI non-tender and non-distended Auscultation: normoactive bowel sounds Palpation: soft Speculum Exam - Vagina: vaginal bleeding; Negative for vaginal discharge Back/Spine no CVA tenderness General Back: other FROM Extremity normal to inspection General Extremety ED: Negative for edema, pulses abnormal or tenderness General Extremity: Negative for edema or pulses abnormal Neuro oriented x3, CN's II-XII intact bilaterally and no sensory deficits noted Sensorium / Orientation: awake and alert Motor Exam: strength 5/5 throughout Skin no rashes or lesions noted and no wounds MDM MDM MDM Narrative Medical decision making narrative: Blood counts look stable, is negative ruling out ectopic, and her urinalysis shows contamination from blood but otherwise no acute infection. We obtained a transvaginal ultrasound to evaluate for TOA, torsion. There is no acute ovarian abnormality, it is noted by radiology that she has a fibroid that is on the right. This would be unusual in a 24-year-old, it is possible that this is adenomyosis, but given her vaginal bleeding and the fact it is on the right side with her pain I believe it could be related to her symptoms. I am going to place her on Aygestin and have her follow-up with gynecology on-call since she does not have a personal insurance advisor. Lab Data Attestation: I reviewed the patient's lab results. Labs: Laboratory Results - last 24 hr 01/09/25 01/09/25 12:53 14:51 WBC 12.3 H RBC 4.61 Hgb 12.1 Hct 37.4 MCV 81.1 MCH 26.2 L MCHC 32.4 RDW Std Deviation 39.2 RDW Coeff of Rigoberto 13.3 Plt Count 297 MPV 9.7 Immature Gran % (Auto) 0.500 Neut % (Auto) 74.5 H Lymph % (Auto) 18.5 L [place] % (Auto) 5.7 Eos % (Auto) 0.6 Baso % (Auto) 0.2 Absolute Neuts (auto) 9.2 H Absolute Lymphs (auto) 2.28 Nucleated RBC % 0 Serum , Qual NEGATIVE Urine Color Yellow Urine Clarity Clear Urine pH 6.0 Ur Specific [place] 1.020 Urine Protein 30 H Urine Glucose (UA) Normal Urine Ketones 15 H Urine Occult Blood 250 H Urine Nitrite Negative Urine Bilirubin Negative Urine Urobilinogen 1 H Ur Leukocyte Esterase 25 H Urine RBC 0 SEEN Urine WBC 0 SEEN Ur Squamous Epith Cells 0-5 SEEN Urine Bacteria 0 SEEN Urine Mucus 0 SEEN Radiography Diagnostic Testing: Clinical Impression(s) from Imaging Studies Transvaginal US 01/09/25 12:31 IMPRESSION: 1.4 cm 1.7 cm 2.3 cm fibroid in the right side of the uterus. Reading Location: [facility] I reviewed transvaginal ultrasound imaging and results which I agree with. Discharge Plan Triage Chief Complaint: Female C/O ED Provider: Luke Canada Dx/Rx/DC Orders Clinical Impression: Menorrhagia with regular cycle, Uterine fibroid, Pelvic pain Instructions: ED Uterine Fibroids Prescriptions: New norethindrone acetate 5 mg tablet See Rx Instructions .ROUTE .COMPLEX Qty: 30 0RF Rx Instructions: 1 tab po bid until bleeding stops; then 1 tab po daily until finished No Action alek (Zingiber officinalis) 500 mg capsule 500 mg PO DAILY ascorbate calcium (vitamin C) 500 mg tablet 500 mg PO DAILY cyanocobalamin (vitamin B-12) [B-12 DOTS] 500 mcg tablet 500 mcg PO DAILY Primary Care Provider: Care Physician,No Primary Referrals: Dat Recinos MD [Med Staff - Active Staff] - As soon as possible (call for appt; tell them you were referred from the ER) Print Language: Spanish Disposition Disposition: Home, Self Care
[2025-01-09 13:02] LABS: Hematocrit 37.4 % (37-47); Hemoglobin 12.1 g/dL (12.0-15.0); Immature Granulocytes Count 0.060 X10^3/uL (0.0-0.0); Mean Corp Hgb Conc 32.4 g/dL (32-36); Mean Corpuscular Volume 81.1 fL (81-99); Mean Platelet Vol. 9.7 fl (6.2-12.0); NRBC Flagged by Analyzer 0 % (0-5); Platelet Count 297 K/mm3 (150-450); RBC Distribution Width CV 13.3 % (11.6-14.6); RBC Distribution Width SD 39.2 fl (35.1-43.9); Red Blood Count 4.61 M/mm3 (4.2-5.4); White Blood Count 12.3 K/mm3 (4.4-11.0)
[2025-01-09 13:42] LABS: Internal QC Validated? YES +Cl - CLEAR BKGD; Pregnancy, Serum, hCG Quali. NEGATIVE Negative; Record Kit Lot#, Serum Preg. 0000947241
[2025-01-09 13:59] VITALS: BP 155/78; PULSE 82; RESP 18; O2SAT 100
[2025-01-09 14:57] LABS: Mucous, Urine 0 SEEN /hpf (<or=2+); Red Blood Cells-Urine 0 SEEN /hpf (0-5)
[2025-01-09 14:59] LABS: Color, Urine Yellow (Yellow); Glucose, Dipstick Normal (Normal); Ketone-Dipstick 15 mg/dl (Negative); Leukocyte Esterase-Dipstick 25 /ul (Negative); Nitrite-Dipstick Negative (Negative); Occult Blood-Urine 250 /ul (Negative); Protein-Dipstick 30 mg/dl (Negative); Specific Gravity, Urine 1.020 (1.002-1.030); Urine Bilirubin Dipstick Negative (Negative)
[2025-01-09 15:00] VITALS: BP 155/78; PULSE 83; RESP 16; O2SAT 100
[2025-01-09 15:12] LABS: Squamous Epithelial Cells - UA 0-5 SEEN /hpf (5-10)
[2025-01-09 15:36] VITALS: BP 142/76; PULSE 78; RESP 16; TEMP 36.4; O2SAT 100
== END 2025-01-09 15:36 | disposition home or self-care (01) ==
PROVIDERS: Emergency Provider Emergency Medicine; Visit Provider Emergency Medicine
DX: N92.0 Excessive and frequent menstruation with regular cycle (principal); D25.9 Leiomyoma of uterus, unspecified; Z87.891 Personal history of nicotine dependence; R10.2 Pelvic and perineal pain
CPT/HCPCS: 76830; 81001; 84703; 85025; 96374; 96375; 99283; A4216; J2405

== ENCOUNTER 2025-01-23 09:22 | Emergency (ER) | payer OTHER, SELFPAY ==
[2025-01-23 09:23] VITALS: BP 144/91; PULSE 80; RESP 16; TEMP 36.6; O2SAT 99; BMI 34.0
--- NOTE | 2025-01-23 09:41 | CT_ITS ---
PROCEDURE: ABDOMEN/PELVIS W IV CONT ONLY 01/23/2025 REASON FOR EXAM: RIGHT LOWER QUADRANT PAIN, NAUSEA VOMITING, ANOREX TECHNIQUE: ABDOMEN/PELVIS W IV CONT ONLY Coronal and Sagittal reconstruction series were provided. CONTRAST: Isovue 370 VOLUME: 100 mL One or more dose reduction techniques were used (e.g., Automated exposure control, adjustment of the mA and/or kV according to patient size, use of iterative reconstruction technique. RADIATION DOSE SUMMARY: CTDlvol: 32.00 mGy DLP: 971.48 mGycm COMPARISON: 2020 FINDINGS: Lung bases: Clear Liver: Normal size. No mass. Gallbladder: Unremarkable Spleen: Normal size. Pancreas: Normal size without evidence of mass surrounding inflammation or ductal dilation. Adrenals: Unremarkable Kidneys: Normal renal sizes. No hydronephrosis. Bladder: Unremarkable Reproductive Organs: Normal-appearing uterus and physiologic ovarian cysts, no free fluid in the dependent pelvis Bowel: No ileus or obstruction. Retained stool noted in the colon. No CTA evidence of acute inflammation. Appendix: Normal appendix seen on coronal recon images 50 through 60. Lymph nodes: No suspicious enlarged mesenteric or retroperitoneal lymph nodes Vasculature: Normal Peritoneum / Retroperitoneum: No free air or fluid. Bones: Normal CT/Abdomen/Pelvis W IV Cont ONLY IMPRESSION: No CTA evidence of an acute inflammatory process, specifically, no CTA evidence of appendicitis, normal appendix noted in the right lower quadrant. No suspicious solid organ abnormality. No free intraperitoneal fluid, air, or suspicious adenopathy Reading Location: [id number]
[2025-01-23 10:04] LABS: Hematocrit 39.8 % (37-47); Hemoglobin 13.1 g/dL (12.0-15.0); Immature Granulocytes Count 0.030 X10^3/uL (0.0-0.0); Mean Corp Hgb Conc 32.9 g/dL (32-36); Mean Corpuscular Volume 80.9 fL (81-99); Mean Platelet Vol. 9.8 fl (6.2-12.0); NRBC Flagged by Analyzer 0 % (0-5); Platelet Count 337 K/mm3 (150-450); RBC Distribution Width CV 13.9 % (11.6-14.6); RBC Distribution Width SD 40.6 fl (35.1-43.9); Red Blood Count 4.92 M/mm3 (4.2-5.4); White Blood Count 9.0 K/mm3 (4.4-11.0)
[2025-01-23] MEDS: 0.9% Normal Saline (1000mL) 1,000 ML 1000 ML IV (10:05)
[2025-01-23 10:36] LABS: Internal QC Validated? YES +Cl - CLEAR BKGD; Pregnancy, Serum, hCG Quali. NEGATIVE Negative; Record Kit Lot#, Serum Preg. 0000962302
[2025-01-23 10:53] LABS: Anion Gap 12 (5-15); BUN 13 mg/dL (4-19); BUN/Creat Ratio 13.9 RATIO (10-20); Calcium,Total 9.2 mg/dL (7.6-11.0); Carbon Dioxide 21.9 mmol/L (21.0-32.0); Chloride 104 mmol/L (98-108); Estimated Creatinine Clearance 122.17 ml/min (50-250); Glucose 95 mg/dL (70-99); Potassium 4.2 mmol/L (3.3-5.1)
--- NOTE | 2025-01-23 11:04 | EX.ED.DYSGE1 ---
HPI History of Present Illness Chief Complaint: Abd Pain Detail of Chief Complaint: Right lower quadrant abdominal pain Informant: patient and other (Sent in by her [employer].) Onset/Context/Timing Onset: Yesterday Context: Sudden Onset Timing: Continuous Quality: Pain Location: Right lower quadrant Current Severity: Mild Maximum Severity: Severe Worsened by: Palpation Relieved by: Nothing Associated Symptoms Associated Symptoms: Decreased appetite/loss of appetite with nausea and vomiting Narrative Narrative: Patient is a 24-year-old female. She has history of fibroids. She was sent in by Dr. Rosanna See from the [facility]. She went there for routine MARRIAGE AND FAMILY THERAPIST exam. She informed her of her pain. Based on her exam she was concerned she had rebound tenderness and was sent to the ER. Patient denies fever or chills. She does endorse nausea and vomiting x 4 yesterday and x 1 this morning. She has essentially no appetite. She denies fever or chills. She denies constipation or diarrhea. She denies dysuria, frequency, urgency or hematuria. She states she has have normal menses this past month. She denies low back pain or flank pain. There is no history of renal ureterolithiasis. She states this pain is different than her fibroid pain. Prior similar symptoms: No Recent Illness/Hospitalization: No PFSH PFSH Medical History Ovarian cyst Complex regional pain syndrome Home Medications ?Medication ?Instructions ?Recorded ?Last Taken ?Type ascorbate calcium (vitamin C) 500 500 mg PO DAILY 09/29/24 09/29/24 History mg tablet cyanocobalamin (vitamin B-12) 500 500 mcg PO DAILY 09/29/24 09/29/24 History mcg tablet (B-12 DOTS) medroxyprogesterone 10 mg tablet 20 mg (2 x 10 mg) PO QDAY #60 tabs 01/17/25 Unknown Rx dicyclomine 10 mg capsule 20 mg (2 x 10 mg) PO TIDAC #20 01/23/25 Unknown Rx CAPSULES Allergy/AdvReac Type Severity Reaction Status Date / Time No Known Allergies Allergy Verified 01/23/25 09:23 Family History Grandfather Heart disease Diabetes Mother Asthma Surgical History History of placement of ear tubes Social History adopted: No household members: none housing: apartment number of children: 0 current occupational status: employed current occupation: [employer] current occupational exposures/hazards: No pets and animals: No history of recent travel: No sexually active: Yes Smoking Status: Former smoker second hand exposure: No alcohol intake: current alcohol intake frequency: a few times a month substance use type: does not use well-balanced diet: daily or most days caffeine: No eating out: rarely or never during the past year weight has: remained stable what type of physical activity do you participate in: none larry/mormon: Anglican seatbelt use: always do you feel safe at home: Yes additional social history: single ROS ROS ED Constitutional Constitutional ED: Denies chills, fever(s), subjective or sweats Eyes Eyes: Denies blurry vision or change in vision ENT ENT ED: Denies ear pain, rhinorrhea or sore throat Cardiovascular Cardiovascular: Denies chest pain or palpitations Respiratory/Chest Respiratory/Chest: Denies cough, dyspnea or dyspnea on exertion Gastrointestinal Gastrointestinal: Reports abdominal pain, nausea and vomiting; Denies constipation, diarrhea or melena Genitourinary Genitourinary ED: Denies dysuria, hematuria or urinary frequency Musculoskeletal Musculoskeletal: Denies arthralgias or myalgias Integumentary Denies rash Endocrine Endocrinology: Denies cold intolerance or heat intolerance Hematologic/Lymphatic Hematologic/Lymphatic: Reports systems reviewed and no addt'l complaints, except as documented EXAM Physical Exam Const Vital Signs: 01/23/25 09:23 01/23/25 11:22 01/23/25 13:00 Temperature 97.9 F Temperature Source Temporal Pulse Rate 80 57 L 74 Respiratory Rate 16 14 18 Blood Pressure 144/91 H 120/69 123/71 H Blood Pressure Mean 108 86 88 Pulse Ox 99 100 100 Oxygen Delivery Method Room Air Room Air Room Air Positive well nourished and well developed Constitutional Narrative: Patient appears pale. She appears ill but not toxic. BMI is 34.0. General Appearance ED: well developed and pallor HEENT Reports dry mucous membranes HEENT Narrative: Head is atraumatic no cephalic. Ears normal. Nares patent. Posterior pharynx is normal Mouth ED: Yes dry mucous membranes Mouth: dry mucous membranes Eyes PERRL and EOMs intact bilaterally General Eye ED: Negative for pale conjunctiva or scleral icterus Neck no lymphadenopathy, supple and no JVD Chest Wall inspection of chest normal Resp normal respiratory effort and clear to auscultation bilaterally Cardio regular rate, regular rhythm, S1 normal heart sound, S2 normal heart sound and no murmurs GI normal to inspection, nondistended, normoactive bowel sounds and non-distended; Negative for non-tender or hepatosplenomegaly Inspection: Negative for abdominal distention Palpation: soft, tender RLQ and guarding RLQ; Negative for splenomegaly, mass or rebound tenderness present Narrative: There is no inguinal lymphadenopathy or inguinal mass. Back/Spine no CVA tenderness Extremity normal to inspection Neuro oriented x3 and CN's II-XII intact bilaterally Sensorium / Orientation: alert Psych Mood & Affect: depressed Skin no rashes or lesions noted, no wounds and No skin turgor normal General Skin Exam: elasticity normal and pallor; Negative for jaundice MDM MDM MDM Narrative Medical decision making narrative: Clinically patient is dehydrated. 1 L normal saline was ordered. Will assess test. With right and right lower quadrant pain differential diagnosis would be pain of unknown etiology, mesenteric adenitis, MARRIAGE AND FAMILY THERAPIST pathology, appendicitis, regional enteritis. Workup included CBC, electrolyte panel and CT of the abdomen pelvis with IV contrast. History & Record Review Additional record(s) reviewed:: Prior outpatient record (Records for menorrhagia from outside facility.) Lab Data Attestation: I reviewed the patient's lab results. Lab results narrative: CBC is unremarkable. There is a slight shift. Basic metabolic panel is normal. test was negative. Labs: Laboratory Results - last 24 hr 01/23/25 01/23/25 09:58 10:04 WBC 9.0 RBC 4.92 Hgb 13.1 Hct 39.8 MCV 80.9 L MCH 26.6 L MCHC 32.9 RDW Std Deviation 40.6 RDW Coeff of Rigoberto 13.9 Plt Count 337 MPV 9.8 Immature Gran % (Auto) 0.300 Neut % (Auto) 71.2 H Lymph % (Auto) 23.3 [place] % (Auto) 4.2 Eos % (Auto) 0.7 Baso % (Auto) 0.3 Absolute Neuts (auto) 6.4 Absolute Lymphs (auto) 2.11 Nucleated RBC % 0 Sodium 138 Potassium 4.2 Chloride 104 Carbon Dioxide 21.9 Anion Gap 12 BUN 13 Creatinine 0.90 Estim Creat Clear Calc 122.17 Est GFR (MDRD) Non-Af 93 BUN/Creatinine Ratio 13.9 Glucose 95 Calcium 9.2 Serum , Qual NEGATIVE Urine Color Yellow Urine Clarity Sl. Cloudy Urine pH 6.0 Ur Specific [place] 1.020 Urine Protein 30 H Urine Glucose (UA) Normal Urine Ketones Negative Urine Occult Blood 10 H Urine Nitrite Negative Urine Bilirubin Negative Urine Urobilinogen Normal Ur Leukocyte Esterase 500 H Urine RBC 0 SEEN Urine WBC 5-10 SEEN Ur Squamous Epith Cells 5-10 SEEN Urine Bacteria 0 SEEN Urine Mucus 1+ Radiography Diagnostic Testing: Clinical Impression(s) from Imaging Studies Abdomen/Pelvis CT 01/23/25 09:41 IMPRESSION: No CTA evidence of an acute inflammatory process, specifically, no CTA evidence of appendicitis, normal appendix noted in the right lower quadrant. No suspicious solid organ abnormality. No free intraperitoneal fluid, air, or suspicious adenopathy Reading Location: [id number] Treatment and Re-Evaluation :: Patient and family were informed of results. Plan is discharged with prescription for Bentyl. This could be related to her fibroid since no abnormality of her colon, small bowel or appendix was identified. She also has a history of ovarian cyst. Discharge Plan Triage Chief Complaint: Abd Pain ED Provider: Osbaldo Moreira Dx/Rx/DC Orders Clinical Impression: Acute right lower quadrant pain, Nicotine vapor product user, Complex regional pain syndrome I, History of uterine fibroid, Hx of ovarian cyst Instructions: ED Abdominal Pain Unkn Cause Fem Prescriptions: New dicyclomine 10 mg capsule 20 mg PO TIDAC Qty: 20 0RF No Action ascorbate calcium (vitamin C) 500 mg tablet 500 mg PO DAILY cyanocobalamin (vitamin B-12) [B-12 DOTS] 500 mcg tablet 500 mcg PO DAILY medroxyprogesterone 10 mg tablet 20 mg PO QDAY Qty: 60 0RF Rx Instructions: take 2 pills a day for 5 days then decrease to 1 pill a day for the remainder of the prescription Primary Care Provider: Care Physician,No Primary Referrals: Geryson See MD [Med Staff - Active Staff] - 3-5 Days Care Physician,No Primary [Primary Care Provider] - Print Language: Sinhala Disposition Disposition: Home, Self Care
[2025-01-23 11:22] VITALS: BP 120/69; PULSE 57; RESP 14; O2SAT 100
[2025-01-23 12:02] LABS: Red Blood Cells-Urine 0 SEEN /hpf (0-5)
[2025-01-23 12:11] LABS: Color, Urine Yellow (Yellow); Glucose, Dipstick Normal (Normal); Ketone-Dipstick Negative (Negative); Leukocyte Esterase-Dipstick 500 /ul (Negative); Nitrite-Dipstick Negative (Negative); Occult Blood-Urine 10 /ul (Negative); Protein-Dipstick 30 mg/dl (Negative); Specific Gravity, Urine 1.020 (1.002-1.030); Urine Bilirubin Dipstick Negative (Negative)
[2025-01-23 12:23] LABS: Mucous, Urine 1+ /hpf (<or=2+); Squamous Epithelial Cells - UA 5-10 SEEN /hpf (5-10)
[2025-01-23 13:00] VITALS: BP 123/71; PULSE 74; RESP 18; O2SAT 100
[2025-01-23 13:46] VITALS: BP 131/75; PULSE 67; RESP 14; TEMP 36.6; O2SAT 100
== END 2025-01-23 13:49 | disposition home or self-care (01) ==
PROVIDERS: Emergency Provider Emergency Medicine; Visit Provider Emergency Medicine
DX: R10.31 Right lower quadrant pain (principal); E86.0 Dehydration; G90.50 Complex regional pain syndrome I, unspecified; F17.290 Nicotine dependence, other tobacco product, uncomplicated; Z87.42 Personal history of other diseases of the female genital tract
CPT/HCPCS: 74177; 80048; 81001; 84703; 85025; 96361; 96374; 96375; 99284; Q9967; A4216; J2405

== ENCOUNTER 2025-01-23 20:40 | Emergency (ER) | payer OTHER, SELFPAY ==
[2025-01-23 20:40] VITALS: BP 130/77; PULSE 79; RESP 18; TEMP 36.6; O2SAT 99; BMI 34.3
--- OUTSIDE RECORDS SUMMARY | 2025-01-23 21:03 | XMS RPT_ITS | CCD ---
Author Organization [facility] CliniSymt Care Team Providers Care Recovery Agent Name Role Phone Unavailable Primary Care Provider UnavailPRINCESS Phillips Consulting Unavailable STEVEN RAPHAEL, DR COLLINS Primary Care Physician LUISANA RAPHAEL, DR STOREY Attending Unavailable STEVEN RAPHAEL, DR COLLINS Primary Care Frank NICHOLSON MD, DR DE Admitting Unavailab radha CROWLEY DO, LUCIANO Gonzales Attending Unavailable STEVEN RAPHAEL, DR COLLINS Primary Care Frank JAIN MD, DR JOHANNA Lacy Consulting Unavailable DORON RAPHAEL, IRINA Klein Consulting Unavaila luci LIEBERMAN MD, DR STOREY Attending Unavailable STEVEN RAPHAEL, DR COLLINS Primary Care PATRIKC Madrigal Attending Unavailable PATRICK PAZ Primary Care Unavailable PATRICK PAZ Admitting Unavailable MARILEE PAN MD Admitting Unavailable MARILEE PAN MD Attending Unavailable MARILEE PAN MD Primary Care Unavailable Care Physician, No Primary Primary Care Provider Unavailable Dr. Nicola Breen MD Attending Provider Dr. Nicola Breen MD Referring Provider [phone] Nicola Breen MD Emergency Provider Dr. Ben Garber DO Referring Provider Dr. Ben Garber DO Emergency Provider Dr. Ben Garber DO Attending Provider Care Physician, No Primary Referring Provider Un available Dr. Ermelinda Rao MD Attending Provider [phone] Dr. Isidro Addison MD Attending Provider Dr. Ermelinda Rao MD Referring Provider Care Physician, No Primary Referring Provider Un available Dr. Ermelinda Rao MD Referring Provider [phone] Ermelinda Rao MD Referring Provider Dr. Ermelinda Rao MD Referring Provider Dread RAPHAEL, Dr. Butler Emergency Provider Care Physician, No Primary Primary Care Unava ilable Luke Canada Attending Unavailable Care Physician, No Primary Primary Care Unava ilable Breen, Nicola Referring Unavailable Breen, Nicola Attending Unavailable Siska, Ermelinda Referring Unavailable Siska, Ermelinda Attending Unavailable Care Physician, No Primary Primary Care Unava ilable Care Physician, No Primary Primary Care Unava ilable Siska, Ermelinda Attending Unavailable Siska, Ermelinda Referring Unavailable Siska, Ermelinda Attending Unavailable Schwiger, Ben Referring Unavailable Care Physician, No Primary Primary Care Unava ilable Care Physician, No Primary Primary Care Unava ilable Azael, Isidro Attending Unavailable Schwiger, Ben Referring Unavailable Care Physician, No Primary Primary Care Unava ilable Azael, Milam Attending Unavailable Care Physician, No Primary Primary Care Unava ilable Care Physician, No Primary Referring Unava ilable Rosanna Joiner Attending Unavailable Care Physician, No Primary Referring Unava ilable Ermelinda Rao Attending Unavailable Care Physician, No Primary Primary Care Unava ilable Care Physician, No Primary Referring Unava ilable Maira, Ermelinda Attending Unavailable Care Physician, No Primary Primary Care Unava ilable Care Physician, No Primary Referring Unava ilable Siska, Ermelinda Attending Unavailable Care Physician, No Primary Primary Care Unava ilable Care Physician, No Primary Referring Unava ilable Maira, Ermelinda Attending Unavailable Care Physician, No Primary Primary Care Unava ilable Care Physician, No Primary Primary Care Unava ilable Schwiger, Ben Referring Unavailable Schwiger, Ben Attending Unavailable Schwiger, Ben Referring Unavailable Schwiger, Ben Attending Unavailable Care Physician, No Primary Primary Care Unava ilable Care Physician, No Primary Primary Care Unava ilable Jcarlos, Ben Attending Unavailable Dread RAPHAEL, Dr. Butler Attending Provider Rosanna Bui Attending Provider Medications Current Medications Medication Drug Class(es) Dates Sig (Normalized) Sig (Original) calcium ascorbate 500 mg oral tablet (10 sources) Start: 5 take 1 tablet by mouth once daily Ascorbate Calcium (Vitamin C) 500 mg tablet Active 500 mg PO DAILY September 29, 2024 12:00am medroxyPROGESTERone acetate 10 mg oral tablet (1 source) Progestin Start: 5 take 2 tablets by mouth once daily, then take 1 tablet by mouth once daily Medroxyprogesterone 10 mg tablet Active 20 mg PO daily 60 0 January 17, 2025 12:00am take 2 pills a day for 5 days then decrease to 1 pill a day for the remainder of the prescription Multivitamin with Iron (1 source) Start: 3 take 1 tablet by mouth once daily Multivitamin with Iron Dose = 1 tab(s), Oral, Daily, 0 Refill(s) Start Date: 11/14/22 Status: Ordered vitamin B12 (20 sources) Vitamin B12 Start: 5 take 1 tablet by mouth once daily Cyanocobalamin (Vitamin B-12) (B-12 Dots) 500 mcg tablet Active 500 ug PO DAILY September 29, 2024 12:00am Start: 09-18-2020 End: 03-21-2024 take 1 capsule by mouth once daily Cyanocobalamin (Vitamin B-12) 1,000 mcg capsule Discontinued 1000 ug PO DAILY September 18, 2020 12:00am March 21, 2024 6:35am Completed/Discontinued Medications Medication Drug Class(es) Dates Sig (Normalized) Sig (Original) acetaminophen 325 mg / HYDROcodone bitartrate 5 mg oral tablet (20 sources) Opioid Agonist Start: 09-10-2020 End: 09-14-2020 Hydrocodone-Acetami nophen 1 TABLET tablet Discontinued 1 {tbl} PO EVERY 6 HOURS NEEDED as needed for Pain 10 3 0 September 10, 2020 September 12, 2020 12:00am September 14, 2020 12:03am Unspecified renal colic Start: 09-10-2020 End: 09-14-2020 take 1 tablet by mouth every six hours as needed Hydrocodone-Acetaminophen Discontinued 1 TABLET PO EVERY 6 HOURS NEEDED 10 3 September 10, 2020 September 13, 2020 11:03pm Start: 07-21-2018 End: 07-23-2018 Hydrocodone-Acetaminophen 1 TABLET tablet Discontinued 1 {tbl} PO EVERY 4 HOURS NEEDED as needed for Pain 10 2 0 July 21, 2018 1:00am July 22, 2018 1:00am July 23, 2018 1:10am Abdominal pain Unspecified abdominal pain Start: 07-21-2018 End: 07-23-2018 take 1 tablet by mouth every four hours as needed Hydrocodone-Acetaminophen Discontinued 1 TABLET PO EVERY 4 HOURS NEEDED 10 2 July 21, 2018 12:00am July 23, 2018 12:10am cephalexin 500 mg oral capsule (11 sources) Cephalosporin Antibacterial Start: 09-10-2020 End: 03-21-2024 take 1 capsule by mouth every six hours Cephalexin 500 MG capsule Discontinued 500 mg PO EVERY 6 HOURS 40 0 September 10, 2020 12:00am March 21, 2024 6:35am Cranberry Fruit (11 sources) Non-Standardized Food Allergenic Extract, Non-Standardized Plant Allergenic Extract Start: 09-18-2020 End: 03-21-2024 take 1 capsule by mouth once daily Cranberry Fruit 400 mg capsule Discontinued 400 mg PO DAILY September 18, 2020 12:00am March 21, 2024 6:35am administer with a meal Start: 09-18-2020 take 400 mg by mouth once maureen y Cranberry Active 400 MG PO DAILY September 17, 2020 11:00pm administer with a meal cyclobenzaprine hydrochloride 10 mg oral tablet (11 sources) Muscle Relaxant Start: 09-18-2020 End: 03-21-2024 take 1 tablet by mouth three times daily as needed for muscle spasms Cyclobenzaprine 10 mg tablet Discontinued 10 mg PO THREE TIMES A DAY as needed for muscle spasm 12 0 September 18, 2020 12:00am March 21, 2024 6:35am Alek (Zingiber Officinalis) (10 sources) Non-Standardized Food Allergenic Extract, Non-Standardized Plant Allergenic Extract Start: 09-29-2024 End: 01-23-2025 take 1 capsule by mouth once daily Alek (Zingiber Officinalis) 500 mg capsule Discontinued 500 mg PO DAILY September 29, 2024 12:00am January 23, 2025 8:34am Start: 09-29-2024 take 1 capsule by mo ut once daily Alek (Zingiber Officinalis) 500 mg capsule Active 500 mg PO DAILY September 29, 2024 12:00am megestrol acetate 40 mg oral tablet (2 sources) Progestin Start: 01-17-2025 End: 01-23-2025 take 1 tablet by mouth once daily Megestrol 40 mg tablet Discontinued 40 mg PO daily 30 0 January 17, 2025 1:54pm January 23, 2025 8:34am naproxen 500 mg oral tablet (11 sources) Nonsteroidal Anti-inflammatory Drug Start: 09-13-2020 End: 09-18-2020 take 1 tablet by mouth twice daily as needed Naproxen 500 MG tablet Discontinued 500 mg PO TWICE DAILY NEEDED September 13, 2020 12:00am September 18, 2020 3:02pm norethindrone acetate 5 mg oral tablet (2 sources) Start: 01-09-2025 End: 01-17-2025 take 1 tablet by mouth twice daily, then take 1 tablet by mouth once daily Norethindrone Acetate 5 mg tablet Discontinued 0 .ROUTE .COMPLEX 30 0 January 09, 2025 12:00am January 17, 2025 9:08am 1 tab po bid until bleeding stops; then 1 tab po daily until finished ondansetron 4 mg disintegrating oral tablet (11 sources) Serotonin-3 Receptor Antagonist Start: 09-10-2020 End: 09-18-2020 take 1 tablet by mouth every eight hours as needed for nausea Ondansetron 4 MG tablet Discontinued 4 mg PO EVERY 8 HOURS NEEDED as needed for Nausea September 10, 2020 12:00am September 18, 2020 3:02pm Problems Active Problems Problem Classification Problem Date Documented Date Episodic/Chronic Abdominal pain (20 sources) Right sided abdominal pain; Translations: [Unspecified abdominal pain] 08-02-2019 Episodic Comment on above: highly suspicious of appendicitis Acute bronchitis (11 sources) Acute bronchitis with bronchospasm; Translations: [Acute bronchitis, unspecified] 08-23-2018 Episodic Benign neoplasm of uterus (3 sources) Uterine leiomyoma; Translations: [Leiomyoma of uterus, unspecified] 01-09-2025 Episodic E Codes: Fall (12 sources) Falling injury; Translations: [Unspecified fall, initial encounter] Onset: 4 05-20-2021 Episodic Epilepsy; convulsions (1 source) Seizure 11-13-2022 Episodic Gastritis and duodenitis (11 sources) Acute hemorrhagic gastritis; Translations: [Acute gastritis with bleeding] 08-02-2019 Episodic Menstrual disorders (5 sources) Menorrhagia; Translations: [Excessive and frequent menstruation with regular cycle] Onset: 5 01-09-2025 Chronic Comment on above: stable with medroxyp rogesterone Open wounds of extremities (11 sources) Superficial laceration of foot; Translations: [Laceration without foreign body, right foot, initial encounter] 09-30-2017 Episodic Other acquired deformities (11 sources) Scoliosis deformity of spine; Translations: [Scoliosis, unspecified] 07-31-2019 Chronic Other injuries and conditions due to external causes (20 sources) Injury of nerve of upper extremity; Translations: [Injury of unspecified nerve at shoulder and upper arm level, left arm, initial encounter] 11-02-2024 Episodic Comment on above: Left index finger Other injuries and conditions due to external causes (1 source) Injury of unspecified nerve at shoulder and upper arm level, left arm, initial encounter; Translations: [Injury of unspecified nerve at shoulder and upper arm level, left arm, initial encounter] Onset: 5 Episodic Other nervous system disorders (4 sources) Complex regional pain syndrome type I; Translations: [Complex regional pain syndrome I, unspecified] 12-20-2024 Chronic Other nervous system disorders (15 sources) Complex regional pain syndrome; Translations: [Mononeuritis of unspecified site] 12-20-2024 Chronic Other non-traumatic joint disorders (11 sources) Acute ankle pain; Translations: [Pain in unspecified ankle and joints of unspecified foot] 04-20-2023 Episodic Other non-traumatic joint disorders (2 sources) Pain in left ankle and joints of left foot; Translations: [Pain in left ankle and joints of left foot] Onset: 4 Episodic Other nutritional; endocrine; and metabolic disorders (1 source) Cholesterol level - finding 11-13-2022 Chronic Other nutritional; endocrine; and metabolic disorders (10 sources) Body mass index 30+ - obesity 03-29-2024 Chronic Other upper respiratory infections (11 sources) Pharyngitis; Translations: [Acute pharyngitis, unspecified] 08-24-2016 Episodic Residual codes; unclassified (10 sources) Nicotine-filled electronic cigarette user; Translations: [Tobacco use] 10-28-2024 Episodic Sprains and strains (20 sources) Sprain of ankle; Translations: [Sprain of unspecified ligament of unspecified ankle, initial encounter] Onset: 4 04-20-2023 Episodic Superficial injury; contusion (20 sources) Contusion of lower back; Translations: [Contusion of lower back and pelvis, initial encounter] Onset: 5 01-26-2017 Episodic Syncope (20 sources) Syncope; Translations: [Syncope and collapse] Onset: 5 11-13-2022 Episodic Unclassified (2 sources) S60.022A - Contusion of left index finger without damage to nail, initial encounter Unclassified (5 sources) Neurapraxia of left upper extremity Unclassified (5 sources) hand therapy Unclassified (5 sources) S44.92XA - Injury of unspecified nerve at shoulder and upper arm level, left arm, initial encounter Unclassified (4 sources) Complex regional pain syndrome I Unclassified (8 sources) G90.50 - Complex regional pain syndrome I, unspecified Unclassified (2 sources) call for appt; tell them you were referred from the ER Past or Other Problems Problem Classification Problem Date Documented Da te Episodic/Chronic Unclassified (1 source) TOE INJ Onset: 09-29-2022 Results Test Name Value Interpretation Reference Range Facility Absolute lymphocyte countOrd ered By: Luke Canada on 01-09-2025 Lymphocytes Auto (Unsp spec) [#/Vol] 2.28 10*3/uL 0.83-4.51 [facility] Absolute neutrophil countOrd ered By: Luke Canada on 01-09-2025 Neutrophils (Bld) [#/Vol] 9.2 10*3/uL High 2.0-7.7 [facility] Automated lymphocyte count a s percentage of total leukocytesOrdered By: Luke Canada on 01-09-2025 Lymphocytes/100 WBC Auto (Unsp spec) 18.5 % Low 19-41 [facility] Basophil percentageOrdered B y: Luke Canada on 01-09-2025 Basophils/100 WBC (Bld) 0.2 % 0-1 [facility] Bilirubin Test strip Ql (U)O rdered By: Luke Canada on 01-09-2025 Bilirubin Ql (U) Negative Negative [facility] CBC W/Diff, Automatedon 12-30 Absolute Lymph 2.28 X10 3/uL Normal 0.83-4.51 [facility] Comment on above: Performed By: #### L 100.0100 #### [facility] [address] [place], [address] Absolute Neut 9.2 X10 3/uL High 2.0-7.7 [facility] Comment on above: Performed By: #### L 100.0100 #### [facility] [address] [place], [address] Basophils/100 WBC (Bld) 0.2 % Normal 0-1 [facility] Comment on above: Performed By: #### L 100.0100 #### [facility] [address] [place], [address] Eosinophils/100 WBC (Bld) 0.6 % Normal 0-5 [facility] Comment on above: Performed By: #### L 100.0100 #### [facility] [address] [place], [address] Erythrocyte distribution width (RBC) [Ratio] 13.3 % Normal 11.6-14.6 [facility] Comment on above: Performed By: #### L 100.0100 #### [facility] [address] [place], [address] Hematocrit (Bld) [Volume fraction] 37.4 % Normal 37-47 [facility] Comment on above: Performed By: #### L 100.0100 #### [facility] [address] [place], [address] Hemoglobin (Bld) [Mass/Vol] 12.1 g/dL Normal 12.0-15.0 [facility] Comment on above: Performed By: #### L 100.0100 #### [facility] [address] [place], [address] IG% 0.500 Normal 0.0-0.9 [facility] Comment on above: Result Comment: IG% - Immature Granulocytes (promyelocytes, myelocytes and metamyelocytes) > 1% indicates that a LEFT SHIFT is Present. Performed By: #### L 100.0100 #### [facility] [address] [place], [address] Lymphocytes/100 WBC (Bld) 18.5 % Low 19-41 [facility] Comment on above: Performed By: #### L 100.0100 #### [facility] [address] [place], [address] MCH (RBC) [Entitic mass] 26.2 pg Low 27.0-32.0 [facility] Comment on above: Performed By: #### L 100.0100 #### [facility] [address] [place], [address] MCHC (RBC) [Mass/Vol] 32.4 g/dL Normal 32-36 [facility] Comment on above: Performed By: #### L 100.0100 #### [facility] [address] [place], [address] MCV (RBC) [Entitic vol] 81.1 fL Normal 81-99 [facility] Comment on above: Performed By: #### L 100.0100 #### [facility] [address] [place], [address] Monocytes/100 WBC (Bld) 5.7 % Normal 0-10 [facility] Comment on above: Performed By: #### L 100.0100 #### [facility] [address] [place], [address] Neutrophils/100 WBC (Bld) 74.5 % High 47-70 [facility] Comment on above: Performed By: #### L 100.0100 #### [facility] [address] [place], [address] Nucleated RBC (Bld) [#/Vol] 0 10*3/uL Normal 0-5 [facility] Comment on above: Performed By: #### L 100.0100 #### [facility] [address] [place], [address] Platelet mean volume (Bld) [Entitic vol] 9.7 fL Normal 6.2-12.0 [facility] Comment on above: Performed By: #### L 100.0100 #### [facility] [address] [place], [address] Platelets (Bld) [#/Vol] 297 10*3/uL Normal 150-450 [facility] Comment on above: Performed By: #### L 100.0100 #### [facility] [address] [place], [address] RBC (Bld) [#/Vol] 4.61 10*6/uL Normal 4.2-5.4 [facility] Comment on above: Performed By: #### L 100.0100 #### [facility] [address] [place], [address] RDW SD 39.2 fl Normal 35.1-43.9 [facility] Comment on above: Performed By: #### L 100.0100 #### [facility] [address] [place], [address] WBC (Bld) [#/Vol] 12.3 10*3/uL High 4.4-11.0 [facility] Comment on above: Performed By: #### L 100.0100 #### [facility] [address] [place], [address] Emergency Department Summary on 01-09-2025 Emergency Department Summary [facility] Medical Records Department [address] [place] [address] Emergency Department Summary 01/09/25 MR#: [id number] Acct: [id number] Name: EMI ASHLEY Rep #: [id number] : 2000 24 From: Luke Canada MD PCP: Care Physician,No Primary Status:REG ER Location: ED HPI HPI - Female History of Present Illness Chief Complaint: Female C/O Informant: patient Narrative Narrative: 24-year-old female states she started her menstrual cycle earlier this morning, she has been having much more pain and unusually to the right and much heavier bleeding than typical. Her cycles are usually regular and this is the expected time. She states 2 or 3 years ago she was diagnosed with an ovarian cyst on the right side that was not intervened on operatively or pharmaceutically. She has never had any abdominal surgeries. She is not currently sexually active and denies having any recent vaginal discharge, urinary symptoms, or other illness or injury. She denies any fevers or chills recently. [facility] Medical History Ovarian cyst Complex regional pain syndrome Home Medications ???Medication ???Instructions ???Recorded ???Last Taken ???Type ascorbate calcium (vitamin C) 500 500 mg PO DAILY 09/29/24 09/29/24 History mg tablet cyanocobalamin (vitamin B-12) 500 500 mcg PO DAILY 09/29/24 5 History mcg tablet (B-12 DOTS) alek (Zingiber officinalis) 500 500 mg PO DAILY 09/29/24 09/29/24 History mg capsule norethindrone acetate 5 mg tablet See Rx Instructions .Route Unknown Rx .COMPLEX #30 tabs Allergy/AdvReac Type Severity Reaction Status Date / Time No Known Allergies Allergy Verified 01/09/25 12:00 Family History Grandfather Heart disease Diabetes Mother Asthma Surgical History History of placement of ear tubes Social History household members: family and friend(s) current occupational status: employed current occupation: [employer] history of recent travel: No sexually active: Yes Smoking Status: Former smoker alcohol intake: never substance use type: does not use diet: low carbohydrate what type of physical activity do you participate in: none seatbelt use: always do you feel safe at home: Yes additional social history: single ROS ROS ED Constitutional Constitutional ED: Denies chills or fever(s) Eyes Eyes: Denies change in vision or diplopia ENT ENT ED: Denies rhinorrhea or sore throat Cardiovascular Cardiovascular: Denies chest pain, palpitations or syncope Respiratory/Chest Respiratory/Chest: Denies cough or dyspnea Gastrointestinal Gastrointestinal: Reports abdominal pain and nausea; Denies diarrhea or vomiting Genitourinary Genitourinary ED: Reports vaginal bleeding; Denies dysuria, hematuria or vaginal discharge Musculoskeletal Musculoskeletal: Denies back pain or neck pain Integumentary Denies abscess or rash Neurologic Neurologic: Denies headache(s), paresthesias or weakness Psychiatric Psychiatric: Denies anxiety or suicidal thoughts EXAM Physical Exam Const Vital Signs: 01/09/25 11:59 01/09/25 13:59 01/09/25 15:00 Temperature 96.9 F L Temperature Source Temporal Pulse Rate 84 82 83 Respiratory Rate 14 18 16 Blood Pressure 127/72 H 155/78 H 155/78 H Blood Pressure Mean 90 103 103 Pulse Ox 98 100 100 Oxygen Delivery Method Room Air Room Air Positive well nourished and well developed General Appearance ED: well developed and NAD HEENT Reports moist mucous membranes normocephalic and atraumatic Eyes PERRL and EOMs intact bilaterally Neck full ROM and supple Resp normal respiratory effort and clear to auscultation bilaterally Cardio regular rate, regular rhythm and no murmurs GI non-tender and non-distended Auscultation: normoactive bowel sounds Palpation: soft Speculum Exam - Vagina: vaginal bleeding; Negative for vaginal discharge Back/Spine no CVA tenderness General Back: other FROM Extremity normal to inspection General Extremety ED: Negative for edema, pulses abnormal or tenderness General Extremity: Negative for edema or pulses abnormal Neuro oriented x3, CN's II-XII intact bilaterally and no sensory deficits noted Sensorium / Orientation: awake and alert Motor Exam: strength 5/5 throughout Skin no rashes or lesions noted and no wounds MDM MDM MDM Narrative Medical decision making narrative: Blood counts look stable, is negative ruling out ectopic, and her urinalysis shows contamination from blood but otherwise no acute infection. We (more content not included)... Normal [facility] Eosinophil percentageOrdered By: Luke Canada on 01-09-2025 Eosinophils/100 WBC (Bld) 0.6 % 0-5 [facility] Erythrocyte distribution wid th ratioOrdered By: Luke Canada on 01-09-2025 Erythrocyte distribution width (RBC) [Ratio] 13.3 % 11.6-14.6 [facility] Erythrocyte distribution wid th standard deviationOrdered By: Luke Canada on 01-09-2025 Erythrocyte distribution width (RBC) [Ratio] 39.2 fl 35.1-43.9 [facility] Hematocrit Auto (Bld) [Volum e fraction]Ordered By: Luke Canada on 01-09-2025 Hematocrit (Bld) [Volume fraction] 37.4 % 37-47 [facility] Hemoglobin measurementOrdere d By: Luke Canada on 01-09-2025 Hemoglobin (Bld) [Mass/Vol] 12.1 g/dL 12.0-15.0 [facility] Immature granulocytes/100 WB C Auto (Bld)Ordered By: Luke Canada on 01-09-2025 Immature granulocytes/100 WBC (Bld) 0.500 % 0.0-0.9 [facility] Comment on above: IG% - Immature Granu locytes (promyelocytes, myelocytes and metamyelocytes) > 1% indicates that a LEFT SHIFT is Present. Ketones Test strip Ql (U)Ord ered By: Luke Canada on 01-09-2025 Ketones Ql (U) 15 mg/dl High Negative [facility] MCV (mean corpuscular volume ) determinationOrdered By: Luke Canada on 01-09-2025 MCV (RBC) [Entitic vol] 81.1 fL 81-99 [facility] Mean corpuscular hemoglobin (MCH) determinationOrdered By: Luke Canada 01-09-2025 MCH (RBC) [Entitic mass] 26.2 pg Low 27.0-32.0 [facility] Mean corpuscular hemoglobin concentration (MCHC) determinationOrdered By: Luke Canada 01-09-2025 MCHC (RBC) [Mass/Vol] 32.4 g/dL 32-36 [facility] Mean platelet volume determi nationOrdered By: Luke Canada on 01-09-2025 Platelet mean volume (Bld) [Entitic vol] 9.7 fL 6.2-12.0 [facility] Microscopic analysis of urin e for red blood cells (RBC)Ordered By: Luke Canada on 01-09-2025 Microscopic analysis of urine for red blood cells (RBC) 0 SEEN /hpf 0-5 [facility] Monocyte percentageOrdered B y: Luke Canada on 01-09-2025 Monocytes/100 WBC (Bld) 5.7 % 0-10 [facility] Mucus LM Ql (Urine sed)Order ed By: Luke Canada on 01-09-2025 Mucus Ql (Urine sed) 0 SEEN /hpf [facility] Neutrophil percentageOrdered By: Luke Canada on 01-09-2025 Neutrophils/100 WBC (Bld) 74.5 % High 47-70 [facility] Nitrite Test strip Ql (U)Ord ered By: Luke Canada on 01-09-2025 Nitrite Ql (U) Negative Negative [facility] Nucleated red blood cell per centageOrdered By: Luke Canada on 01-09-2025 Nucleated RBC/100 WBC (Bld) [Ratio] 0 % 0-5 [facility] Platelet countOrdered By: Azalia Canada on 01-09-2025 Platelets (Bld) [#/Vol] 297 10*3/uL 150-450 [facility] ,Serum,hCG Quali.on 01-09-2025 HCG, SERUM QUAL Negative Normal [facility] Comment on above: Performed By: #### L 700.6800 #### [facility] [address] [place] [address], [address] Protein Test strip Ql (U)Ord ered By: Luke Canada on 01-09-2025 Protein Ql (U) 30 mg/dl High Negative [facility] RBC Auto (Bld) [#/Vol]Ordere d By: Luke Canada on 01-09-2025 RBC (Bld) [#/Vol] 4.61 10*6/uL 4.2-5.4 [facility] Serum beta-hCG test, qualita tiveOrdered By: Luke Canada on 01-09-2025 Beta HCG ( test) Ql Negative [facility] Squamous epithelial cells de tection in urine sediment by light microscopyOrdered By: Luke Canada on 01-09-2025 Epithelial cells.squamous LM Ql (Urine sed) 0-5 SEEN /hpf 5-10 [facility] Transvaginal Non-on 01-09-2025 Transvaginal Non- [facility] Services [address] [place], [place] [address] Transvaginal Non- MR#: [id number] Acct: [id number] Name: EMI ASHLEY Rep #: [id number] : 2000 F 24 From: Keo schaefer MD PCP: Care Physician,No Primary Status: REG ER Study: Transvaginal Non- Date of Exam: Exam# [id number] Ordering Dr: Luke Canada MD PROCEDURE: TRANSVAGINAL NON- 01/09/2025 REASON FOR EXAM: RIGHT PELVIC PAIN TECHNIQUE: TRANSVAGINAL NON- COMPARISON: Prior study dated September 19, 2020. FINDINGS: Measurements: Uterus: 8.7 cm x 4.7 cm x 3.8 cm with a volume of 81.53 mL. There is a 1.4 cm x 1.7 cm 2.3 cm right uterine fibroid. Endometrial Thickness: 4 mm. It is hyperechoic. Right Ovary: 2.9 cm x 2.9 cm x 2.4 cm with a volume of 18.38 mL. Left Ovary: 2.9 cm x 2.9 cm x 2.4 cm with a volume of 10.39 mL. Uterus: Fibroid uterus. Endometrium: Unremarkable. Right ovary: Normal size and echotexture. Left ovary: Normal size and echotexture. Other: No large pelvic mass identified. US/Transvaginal Non- IMPRESSION: 1.4 cm 1.7 cm 2.3 cm fibroid in the right side of the uterus. Reading Location: [facility] CC: Dr. Luke Canada MD; No Primary Care Physician Events Assistant: Signed Normal [facility] Urinalysis, Completeon 01-09 EPI,SQUAMOUS 0-5 SEEN Normal 5-10 [facility] Comment on above: Order Comment: CLEAN CATCH Performed By: #### L 400.0001 #### [facility] [address] [place], [address] BACTERIA 0 SEEN Normal None Seen [facility] Comment on above: Order Comment: CLEAN CATCH Performed By: #### L 400.0001 #### [facility] [address] [place], [address] Mucus Ql (Urine sed) 0 SEEN Normal [facility] Comment on above: Order Comment: CLEAN CATCH Performed By: #### L 400.0001 #### [facility] [address] [place], [address] RBC 0 SEEN Normal 0-5 [facility] Comment on above: Order Comment: CLEAN CATCH Performed By: #### L 400.0001 #### [facility] [address] [place], [address] WBC 0 SEEN Normal 0-5 [facility] Comment on above: Order Comment: CLEAN CATCH Performed By: #### L 400.0001 #### [facility] [address] [place], [address] Urine clarityOrdered By: [place] Canada on 01-09-2025 Clarity (U) Clear Clear [facility] Urine color determinationOrd ered By: Luke Canada on 01-09-2025 Color (U) Yellow Yellow [facility] Urine glucose detectionOrder ed By: Luke Canada on 01-09-2025 Glucose Ql (U) Normal mg/dl Normal [facility] Urine leukocyte esterase det ection by dipstickOrdered By: Luke Canada on 01-09-2025 Leukocyte esterase Test strip Ql (U) 25 /ul High Negative [facility] Urine pHOrdered By: Luke Canada on 01-09-2025 pH (U) 6.0 [pH] 5.0 - 8.0 [facility] Urine sediment bacteria coun t by microscopy (number/high power field)Ordered By: Luke Canada on 01-09-2025 Bacteria LM.HPF (Urine sed) [#/Area] 0 /[HPF] None Seen [facility] Urine specific gravity measu rementOrdered By: Luke Canada on 01-09-2025 Specific gravity (U) [Rel density] 1.020 1.002-1.030 [facility] Urine urobilinogen measureme ntOrdered By: Luke Canada on 01-09-2025 Urobilinogen Ql (U) 1 mg/dl High Normal [facility] White blood cell (WBC) count Ordered By: Luke Canada on 01-09-2025 WBC (Bld) [#/Vol] 12.3 10*3/uL High 4.4-11.0 [facility] White blood cell countOrdere d By: Luke Canada on 01-09-2025 White blood cell count 0 SEEN /hpf 0-5 [facility] Plastic Surgery Visit Report on 12-27-2024 Plastic Surgery Visit Report [facility] Plastic Reconstructive Surgery [address], [address] [place] [address] OFFICE VISIT Date of Service: 12/27/24 MR#: [id number] Acct: [id number] Name: EMI ASHLEY Rep #: [id number] : 2000 Provider: Dr. Ermelinda Rao MD Age/Sex: 24/F Location: [place] [address] Status: Signed Intake Vital Signs 10/28/24 14:55 Height 5 ft 9 in Intake Visit Reasons: 1 WK F/U - [facility] Chief Complaint: 3 week follow up mri results Is patient in pain?: Yes (6.10/08) Allergies No Known Allergies Allergy (Verified 12/27/24 13:09) Medications ???Medication ???Instructions ???Recorded ???Confirmed ???Type ascorbate calcium (vitamin C) 500 500 mg PO DAILY 09/29/24 12/27/24 History mg tablet cyanocobalamin (vitamin B-12) 500 500 mcg PO DAILY 09/29/24 5 History mcg tablet (B-12 DOTS) alek (Zingiber officinalis) 500 500 mg PO DAILY 09/29/24 12/27/24 History mg capsule Nurse's Note: pt had a fall this past weekend, reports did not hurt finger. Finger is still painful 6.5/10 and swollen [facility] Medical History (Updated 12/28/24 @ 11:[address] Ermelinda Rao MD) Complex regional pain syndrome Surgical History History of placement of ear tubes Family History Grandfather Heart disease Diabetes Mother Asthma Social History household members: family and friend(s) current occupational status: employed current occupation: [employer] history of recent travel: No sexually active: Yes Smoking Status: Light Smoker (<10/day) alcohol intake: never substance use type: does not use diet: low carbohydrate what type of physical activity do you participate in: none seatbelt use: always do you feel safe at home: Yes additional social history: single HPI 1 WK F/U - [facility] Details: HPI from 21 December 2024: Emi Ashley is a delightful 24-year-old female who presents today for evaluation of the left index finger after she sustained a crush injury 28 Oct 2024. Evaluation demonstrated no tendon injuries (able to bend all the joints) but neurapraxia of the digital nerve secondary to the crush. She has been seeing occupational therapy. The numbness in the finger initially improved but now has returned, affecting her ability to feel and move the finger without assistance. The patient reports that she can close her hand with assistance but cannot feel the finger distal to the middle of P2, indicating a significant sensory deficit. The patient experiences cold intolerance in the affected finger, requiring a warm towel for comfort before sleep. She reports exquisite tenderness upon touch, particularly in the area of the previous crush injury. The patient has been undergoing occupational therapy, focusing on desensitization techniques and improving range of motion. Despite these efforts, she continues to experience significant pain and sensory issues. CURRENT ENCOUNTER, 27 December 2024: The patient is a 24-year-old female presenting with numbness and pain in the finger following a crush injury. The numbness in the finger has returned, affecting her ability to feel and move the finger without assistance. The patient reports that she can close her hand with assistance, which is an improvement since last week. The patient experiences cold intolerance in the affected finger, requiring a warm towel for comfort before sleep. She reports exquisite tenderness upon touch, particularly in the area of the previous crush injury. The patient has been undergoing occupational therapy, focusing on desensitization techniques and improving range of motion. Despite these efforts, she continues to experience significant pain and sensory issues. Patient was denied psychiatry and pain management referrals (workers comp) that I made last week in the setting of potential CRPS; however, patient has the opportunity to work with occupational therapy and I had the occupational therapist come into the appointment with me today to discuss desensitization treatments and also rehab of the finger. I reviewed the results of the MRI today: The MRI that was obtained last week did not demonstrate any flexor tendon injuries. It did not demonstrate sprain of the central slip, but no discontinuity of the central strip and no tear. This is not particularly where her pain is on exam, rather it is more in the fingertip. The results of the MRI are as follows: Study:Upper Ext/No Jt/ wo Date of Exam:12/23/24 Exam#[id number] Ordering Dr: Ermelinda Rao MD PROCEDURE: UPPER EXT/NO JT/ WO 12/23/2024 REASON FOR EXAM: POSSIBLE TENDON INJURY TECHNIQUE: LEFT UPPER EXT/NO JT/ WO Multiplanar and multisequence (more content not included)... Normal [facility] Magnetic resonance imaging r eportOrdered By: Azar Gaviria on 12-24-2024 Study report [facility] Services [address] [place] [address] Upper Ext/No Jt/ wo MR#: [id number] Acct: [id number] Name: EMI ASHLEY Ho Rep #: [id number] : 2000 F 24 From: Ana Cristina Gaviria MD PCP: Care Physician,No Primary Status: REG CLI Study:Upper Ext/No Jt/ wo Date of Exam: 12/23/24 Exam# [id number] Ordering Dr: Ania Rao MD PROCEDURE: UPPER EXT/NO JT/ WO 12/23/2024 REASON FOR EXAM: POSSIBLE TENDON INJURY TECHNIQUE: LEFT UPPER EXT/NO JT/ WO Multiplanar and multisequence images were obtained without IV contrast administration. COMPARISON: COMPARISON: Left index finger radiographs 11/01/2024 and 10/28/2024 FINDINGS: Bone Marrow: There is no abnormal bone marrow signal. Soft Tissues: Mild edema about the proximal interphalangeal (PIP) joint of the index finger. Ligaments and Tendons: Collateral ligaments are intact. Flexor tendons are unremarkable, without evidence of jose alejandro injury. There is mild laxity of the central slip at the PIP joint of the index finger. No discrete tear of the central slip. MRI/Upper Ext/No Jt/ wo IMPRESSION: Mild laxity of the central slip at its insertion on the dorsal base of the left index finger PIP joint, without definite tear. There is associated soft tissue swelling about the index finger PIP joint. Reading Location: [id number] CC: Dr. Ermelinda Rao MD; No Primary Care Physician ~ Events Assistant: Signed [facility] Upper Ext/No Jt/ woon 2024 [facility] Ext/No Jt/ wo [facility] Services [address] [place] [address] Upper Ext/No Jt/ wo MR#: [id number] Acct: [id number] Name: EMI ASHLEY Rep #: [id number] : 2000 F 24 From: Azar Gaviria MD PCP: Care Physician,No Primary Status: REG CLI Study: Upper Ext/No Jt/ wo Date of Exam: 12/23/24 Exam# [id number] Ordering Dr: Ermelinda Rao MD PROCEDURE: UPPER EXT/NO JT/ WO 12/23/2024 REASON FOR EXAM: POSSIBLE TENDON INJURY TECHNIQUE: LEFT UPPER EXT/NO JT/ WO Multiplanar and multisequence images were obtained without IV contrast administration. COMPARISON: COMPARISON: Left index finger radiographs 11/01/2024 and 10/28/2024 FINDINGS: Bone Marrow: There is no abnormal bone marrow signal. Soft Tissues: Mild edema about the proximal interphalangeal (PIP) joint of the index finger. Ligaments and Tendons: Collateral ligaments are intact. Flexor tendons are unremarkable, without evidence of jose alejandro injury. There is mild laxity of the central slip at the PIP joint of the index finger. No discrete tear of the central slip. MRI/Upper Ext/No Jt/ wo IMPRESSION: Mild laxity of the central slip at its insertion on the dorsal base of the left index finger PIP joint, without definite tear. There is associated soft tissue swelling about the index finger PIP joint. Reading Location: [id number] CC: Dr. Ermelinda Rao MD; No Primary Care Physician Events Assistant: Signed Normal [facility] Plastic Surgery Visit Report on 12-20-2024 Plastic Surgery Visit Report [facility] Plastic Reconstructive Surgery [address], [address] [place] [address] OFFICE VISIT Date of Service: 12/20/24 MR#: [id number] Acct: [id number] Name: EMI ASHLEY Rep #: [id number] : 2000 Provider: Dr. Ermelinda Rao MD Age/Sex: 24/F Location: [place] [address] Status: Signed Intake Vital Signs 10/28/24 14:55 Height 5 ft 9 in Intake Visit Reasons: 3 WEEK FOLLOW UP Chief Complaint: 3 week follow up Is patient in pain?: Yes (8/10 pain and numbness ) Allergies No Known Allergies Allergy (Verified 12/20/24 13:24) Medications ???Medication ???Instructions ???Recorded ???Confirmed ???Type ascorbate calcium (vitamin C) 500 500 mg PO DAILY 09/29/24 12/20/24 History mg tablet cyanocobalamin (vitamin B-12) 500 500 mcg PO DAILY 09/29/24 5 History mcg tablet (B-12 DOTS) alek (Zingiber officinalis) 500 500 mg PO DAILY 09/29/24 12/20/24 History mg capsule Nurse's Note: pt here for 3 week follow up, pt reports pain 8/10 at times, numbness at tip of left index finger [facility] Medical History Complex regional pain syndrome Surgical History History of placement of ear tubes Family History Grandfather Heart disease Diabetes Mother Asthma Social History household members: family and friend(s) current occupational status: employed current occupation: [employer] history of recent travel: No sexually active: Yes Smoking Status: Light Smoker (<10/day) alcohol intake: never substance use type: does not use diet: low carbohydrate what type of physical activity do you participate in: none seatbelt use: always do you feel safe at home: Yes additional social history: single HPI 3 WEEK FOLLOW UP Details: Emi Ashley is a delightful 24-year-old female who presents today for evaluation of the left index finger after she sustained a crush injury 28 Oct 2024. Evaluation demonstrated no tendon injuries (able to bend all the joints) but neuropraxia of the digital nerve secondary to the crush. She has been seeing occupational therapy. The numbness in the finger initially improved but now has returned, affecting her ability to feel and move the finger without assistance. The patient reports that she can close her hand with assistance but cannot feel the finger distal to the middle of P2, indicating a significant sensory deficit. The patient experiences cold intolerance in the affected finger, requiring a warm towel for comfort before sleep. She reports exquisite tenderness upon touch, particularly in the area of the previous crush injury. The patient has been undergoing occupational therapy, focusing on desensitization techniques and improving range of motion. Despite these efforts, she continues to experience significant pain and sensory issues. Attestation: Documentation on this patient encounter was supported using ambient scribe technology/ voice AI technology. The patient consented to recording for the purpose of documenting the encounter. Provider reviewed content of the generated note prior to signature. Exam Details L Upper Extremity Inspection: No skin changes Palpation: Hyperpathia with palpation of the left index finger Motor: Able to bend and extend all MP, PIP, and DIP joints except today she is unable to bend the DIP joint of the left index finger which is a change since the last exam. She is able to bend the PIP joint of the left index finger (FDS intact). Sensory: She reports no sensation distal to the middle of the P2 bone of the left index finger. Vascular: Finger tips are warm and well perfused with greater than 2 second capillary refill. Coding Level of Care Code Off vis,est,level 3 Diagnoses Complex regional pain syndrome Neuropraxia of left upper extremity S44.92XA Flexor tendon rupture of hand S66.819A Assessment and Plan (No Qualifiers) Assessment and Plan (1) Complex regional pain syndrome: Status: Acute Plan: Discussed multidisciplinary approach out of my concern for complex regional pain syndrome. I talked to the patient about desensitization therapy with the occupational therapist, as well as referral to pain management with Dr. Nuñez (whom I messaged), as well as referral to psychiatry for consideration regarding medication such as SSRIs which have been proven to help with CRPS. Patient happy with the plan. (2) Neuropraxia of left upper extremity: Status: Acute Comment: Left index finger (3) Flexor tendon rupture of hand: Status: Acute Plan: Concern for flexor tendon rupture (possible FDP rupture) (more content not included)... Normal [facility] Re-Evalution OTon 12-20-2024 Re-Evalution OT [facility] Occupational Therapy [facility] [place] [address] / REEVALUATION / MEDICARE RECERTIFICATION OCCUPATIONAL THERAPY MR#: [id number] Acct: [id number] Name: EMI ASHLEY Rep #: [id number] : 2000 24 From: Jodi Esteves Referring Dr.: Dr. Ermelinda Rao MD Status: REG RCR Insurance: [facility] Eval Date: [facility] Re-Evaluation Intro: Dr. Ermelinda Rao MD, It has been my pleasure to treat EMI ASHLEY over the last 10 visits for L index finger crush injury. Please see the progress note below for an update on the occupational therapy plan of care! 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 Lateral pinch R 16# L 10# tip tp tip R9# L 0# L hand IF MP 90 L hand IF PIP 85 L hand IF DIP 40 Plan Plan Frequency: 2x /Week Duration: 6 Weeks Visits in this POC: 12 Plan: 6 weeks (2x a week ) Goals Goals Patient Goals: Regain Mobility, Regain Strength, Decrease Pain, Return to Work, Improve Fine Motor Skills, Use Hand/Wrist/Arm Normally Again, Decrease Tingling/Numbness and Be More Independent in ADLS Goal:: pt to demo improved L change analyst strength by 20# in order to grasp heavier objects during BC tasks pt to demo improved L tip pinch strength by 3# to grasp small items during ADLs pt to demo improved L lateral pinch by 4# for greater use of power pinch with non dominant hand during BC tasks Goal:: pt to demo improved PIP/DIP AROM by 50' for greater use of non domninant hand to make a full fist during grasping tasks Goal:: pt to report no more than 3/10 pain levels during daily functional tasks Goal:: pt to demo improved FMC skills by reducing L 9HPT time by 6 seconds for greater use of L hand at work when manipulating coins Goal:: pt to demo improved overall indep at home/work by reduced DASH score by 15 points Anticipated Interventions Anticipated Interventions Anticipated Interventions: A/AAROM/PROM, Strengthening, Massage, Triggerpoint Release, Desensitization, Sensory Retraining and Fine Motor Coord/Jonathan Re-Evaluation Ending Re-evaluation ending: Please do not hesitate to contact me at [phone] by phone or if you have questions or concerns regarding this new plan of care! Sincerely, Jodi Esteves 12/20/24 1501 CC: Dr. Ermelinda Rao MD; No Primary Care Physician CK Signed For Medicare only, by signing this I certify the plan of care. Physicians Signature Date Normal [facility] OT General Evaluationon 06- OT General Evaluation [facility] [address] [place] [address] [address] [place] [address] / REHABILITATION SERVICES INITIAL EVALUATION MR#: [id number] Acct: [id number] Name: EMI ASHLEY Rep #: [id number] : 2000 24 From: Eun Ortega Referring Dr.: Dr. Ermelinda Rao MD Status: REG RCR Insurance: [facility] Patient's Visit Information Visit Information Visit Information: EMI ASHLEY is a 24 year old F, referred to Occupational Therapy by Dr. Ermelinda Rao MD, with a diagnosis of L index finger crush injury. Date of Evaluation: 11/22/24 Occupational Therapist: Eun Ortega Subjective Subjective: Pt 3w 4d post crush injury at work to L index finger where she shut it in a door. no fractures or dislocations present. 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 pt is technically on light duty at work, but she has a hard time not hitting her finger on things. still wearing her splint at work and when she is active, but at rest takes it off. has a different wrap on that she wears at night. no N T at this time but presents around 9 in the morning then lasts all day. only taking motrin and advil when her pain is high. feels that swelling has gone down since initial injury. 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 pt is right hand dominant, no specific lifting restrictions at this time. difficulty to wash her hair, is able to cook, dressing difficulty with hooking a bra. Pain L index: Current Pain Intensity: 5 Pain Intensity Range: 0 and 9 ROM MP: L D2 85 PIP: L D2 27 DIP: L D2 20 ROM Comments: WFL all other fingers/wrist Strength Print Production Manager: R 80#, L 40# Lateral Pinch: R 14#, L 6# Tip-to-Tip Pinch: R 8#, L 2# Strength Comments: increased pain with all grasp patterns especially tip Edema Other: WFL comparable to unaffected side Nine Hole Peg Right: 23 Left: 30 In-Hand Manipulation Finger to Palm Translation: Mild - Left Palm to Finger Translation: Moderate - Left Comments: increased pain with finger flexion to move beads from palm to finger Quick DASH-Disab of Arm,Shoulder Hand Quick DASH Score: 38.6350 Goals Goal:: pt to demo improved L change analyst strength by 20# in order to grasp heavier objects during BC tasks pt to demo improved L tip pinch strength by 3# to grasp small items during ADLs pt to demo improved L lateral pinch by 4# for greater use of power pinch with non dominant hand during BC tasks Goal:: pt to demo improved PIP/DIP AROM by 50' for greater use of non domninant hand to make a full fist during grasping tasks Goal:: pt to report no more than 3/10 pain levels during daily functional tasks Goal:: pt to demo improved FMC skills by reducing L 9HPT time by 6 seconds for greater use of L hand at work when manipulating coins Goal:: pt to demo improved overall indep at home/work by reduced DASH score by 15 points Rehabilitation General Assessment: pt presenting with pain and limited AROM of L index finger following crush injury at work 10/28 by smashing finger in metal door. pt demo increased pain with all movement creating difficulty for completing daily tasks such as washing hair and hooking bra. pt with increased pain and N T throughout the day when she is using it at work. pt advising to start weaning from splint that is keeping PIP and DIP in full extension as this will continue to reduce her motion. pt demo decreasd overall pinch/change analyst strength as well as FMC as compared to unaffected side. pt would benefit from skilled OT services in OP setting to reduce pain, improve AROM, strength and FMC to be able to use hand again and return to PLOF. Rehabilitation Potential: Good Anticipated Interventions Anticipated Interventions: A/AAROM/PROM, Strengthening, Massage, Triggerpoint Release, Desensitization, Sensory Retraining and Fine Motor Coord/Jonathan Visit Plan Frequency: 2x /Week Duration: 6 Weeks General Plan: continue per POC for x2/week for 6 weeks to improve overall daily indep at work/home by improving AROM, strength and FMC as well as reducing pain with daily tasks. TEXT: Thank you for the opportunity to evaluate your patient. For Medicare and Medicare HMO plans, please review the plan of care and approve it. It will need to be FAXED BACK to us at [phone] for Medicare purposes. Please let me know if there are questions or concerns regarding this plan of care. Physician Signature: D ate: 11/22/24 1146 CC: Dr. Ermelinda Rao MD; No Primary Care Physician [facility] Signed For Medicare only, by signing this I certify the plan of care. Physicians Signature Date [facility] Plastic Surgery Visit Report on 11-22-2024 Plastic Surgery Visit Report [facility] Plastic Reconstructive Surgery [address], [address] [place] [address] OFFICE VISIT Date of Service: 11/22/24 MR#: [id number] Acct: [id number] Name: EMI ASHLEY Rep #: [id number] : 2000 Provider: Dr. Ermelinda Rao MD Age/Sex: 24/F Location: [place] [address] Status: Signed Intake Vital Signs 10/28/24 14:55 Height 5 ft 9 in Weight: 221 lb BMI 32.6 BP 135/95 H Respiration 15 Pulse 89 Temp 97.8 F Temp Source Temporal Pulse Oximetry (%) 100 Intake Visit Reasons: 2 WK F/U [facility] Chief Complaint: 1 week f/u Is patient in pain?: Yes Allergies No Known Allergies Allergy (Verified 11/22/24 14:04) Medications ???Medication ???Instructions ???Recorded ???Confirmed ???Type ascorbate calcium (vitamin C) 500 500 mg PO DAILY 09/29/24 11/22/24 History mg tablet cyanocobalamin (vitamin B-12) 500 500 mcg PO DAILY 09/29/24 5 History mcg tablet (B-12 DOTS) alek (Zingiber officinalis) 500 500 mg PO DAILY 09/29/24 11/22/24 History mg capsule PFSH Surgical History History of placement of ear tubes Family History Grandfather Heart disease Diabetes Mother Asthma Social History household members: family and friend(s) current occupational status: employed current occupation: [employer] history of recent travel: No sexually active: Yes Smoking Status: Light Smoker (<10/day) alcohol intake: never substance use type: does not use diet: low carbohydrate what type of physical activity do you participate in: none seatbelt use: always do you feel safe at home: Yes additional social history: single HPI 2 WK F/U [facility] Details: The patient is a 24-year-old female presenting with a finger contusion and numbness at the volar fingertip. The injury occurred when her finger was caught in a heavy door, resulting in a contusion. She has been receiving hand therapy, which includes exercises and treatments such as hot wax application to enhance mobility and sensation. There is noted improvement in the range of motion of the PIP and DIP joints, although numbness persists at the volar fingertip. Two x-rays have been performed, showing no fractures. The patient is advised to continue hand therapy twice a week and to observe for any changes in sensation or function. Attestation: Documentation on this patient encounter was supported using ambient scribe technology/ voice AI technology. The patient consented to recording for the purpose of documenting the encounter. Provider reviewed content of the generated note prior to signature. ROS Details - Musculoskeletal: Reports improved range of motion in the affected finger. - Neurological: Reports persistent numbness at the volar fingertip of the affected finger. Exam Details L Upper Extremity Inspection: Slight improvement in range of motion of the left index finger is observed; PIP and DIP joints are bending better (40 degrees PIP, 25 degrees DIP without the need for a digital block today) Palpation: Tenderness noted at the site of previous injury (contusion) Motor: Able to bend and extend all MP, PIP, and DIP joints; slight improvement in range of motion. Sensory: Intact to light touch on the radial border of the index finger (reports now 10/10 sensation on the radial and ulnar borders), but numbness still present on the volar fingertip distal from the DIP joint. Vascular: Finger tips are warm and well perfused with greater than 2 second capillary refill. Coding Level of Care Code Off vis,est,level 3 Diagnoses Contusion of left index finger S60.022A Neuropraxia of left upper extremity S44.92XA Assessment and Plan (No Qualifiers) Assessment and Plan (1) Contusion of left index finger: Status: Inactive Plan: Flexor tendons intact (2) Neuropraxia of left upper extremity: Status: Acute Comment: Left index finger Plan: Improving Plan Assessment and Plan The patient is a 24-year-old female with a history of finger contusion presenting with numbness at the volar fingertip. The contusion resulted from the finger being caught in a heavy door, leading to bruising and decreased sensation. Hand therapy has been initiated, focusing on exercises and treatments to imp rove mobility and sensation. The patient shows improvement in joint mobility, although numbness persists at the volar fingertip. X-rays have ruled out fractures, and the patient is advised to continue therapy and monitor for changes. 1. Finger Contusion The patient is advised to continue hand therapy twice a week to improve mobility and sensation. (more content not included)... [facility] Plastic Surgery Visit Report on 11-08-2024 Plastic Surgery Visit Report [facility] Plastic Reconstructive Surgery [address], [address] [place] [address] OFFICE VISIT Date of Service: 11/08/24 MR#: [id number] Acct: [id number] Name: GABIEMI D Rep #: [id number] : 2000 Provider: Dr. Ermelinda Rao MD Age/Sex: 24/F Location: [place] [address] Status: Signed Intake Vital Signs 10/28/24 14:55 Height 5 ft 9 in Weight: 221 lb BMI 32.6 BP 135/95 H Respiration 15 Pulse 89 Temp 97.8 F Temp Source Temporal Pulse Oximetry (%) 100 Intake Visit Reasons: 1 WK F/U Chief Complaint: 1 week f/u Is patient in pain?: No Allergies No Known Allergies Allergy (Verified 11/08/24 14:31) Medications ???Medication ???Instructions ???Recorded ???Confirmed ???Type ascorbate calcium (vitamin C) 500 500 mg PO DAILY 09/29/24 11/08/24 History mg tablet cyanocobalamin (vitamin B-12) 500 500 mcg PO DAILY 09/29/24 5 History mcg tablet (B-12 DOTS) alek (Zingiber officinalis) 500 500 mg PO DAILY 09/29/24 11/08/24 History mg capsule Nurse's Note: C-9 has not been approved for OT yet. PFSH Surgical History History of placement of ear tubes Family History Grandfather Heart disease Diabetes Mother Asthma Social History household members: family and friend(s) current occupational status: employed current occupation: [employer] history of recent travel: No sexually active: Yes Smoking Status: Light Smoker (<10/day) alcohol intake: never substance use type: does not use diet: low carbohydrate what type of physical activity do you participate in: none seatbelt use: always do you feel safe at home: Yes additional social history: single HPI 1 WK F/U Details: HPI from 01 November 2024 Emi Ashley is a delightful 24-year-old female who presents today for evaluation of the left index finger after she sustained a crush injury 28 Oct 2024 (1 week ago). 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 She reports sharp and severe pain ever since but tingling on the radial and ulnar borders as well with decreased sensation. She has never hurt this finger before. She has been unable to bend the finger ever since the time of the injury. She was referred to our clinic by the emergency room physician out of concern for inability to flex the digit. She was placed in AlumaFoam splint by the emergency department and asked to rest and elevate/ice the digit. Current encounter, 08 November 2024: Patient still reports persistent numbness and tingling as well as decreased range of motion in the left index finger. She reports that she has not yet been approved for the occupational therapy. Exam Details Left upper Extremity Inspection: Left index finger swelling but no bruising or lacerations. No nail deformities Palpation: Tenderness to palpation left index finger. Collateral ligaments intact and no dislocation of any joints with stress. Motor: Patient was able to bend the index finger PIP and DIP joints for me on exam today. The FDS and the FDP are intact. Sensory: Intact to light touch on the radial and ulnar borders except she reports diminished sensation from approximately P2 to the fingertip on the left index finger on the radial and ulnar borders (5 out of 10 sensation versus 10 out of 10 on the contralateral side). Vascular: Finger tips are warm and well perfused with <2 second capillary refill. Supplemental Info PROCEDURE: FINGER(S) MIN 2 VIEWS 11/01/2024 REASON FOR EXAM: CONTUSION OF LEFT INDEX FINGER TECHNIQUE: Three views of the left index finger COMPARISON: None RAD/Finger(s) Min 2 Views IMPRESSION: No acute fracture or dislocations. Minimal soft tissue edema. No radiographic foreign body. 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 Sometimes when the digital nerves are crushed, a neuropraxia can develop where there is numbness from a (more content not included)... [facility] Plastic Surgery Visit Report on 11-02-2024 Plastic Surgery Visit Report [facility] Plastic Reconstructive Surgery [address], [address] [place] [address] OFFICE VISIT Date of Service: 11/01/24 MR#: [id number] Acct: [id number] Name: EMI ASHLEY Rep #: [id number] : 2000 Provider: Dr. Ermelinda Rao MD Age/Sex: 24/F Location: [place] [address] Status: Signed Intake Vital Signs 3 10/28/24 14:55 Height 5 ft 9 in Intake Visit Reasons: ED FOLLOW UP Allergies No Known Allergies Allergy (Verified 10/28/24 15:02) PFSH Surgical History History of placement of ear tubes Family History Grandfather Heart disease Diabetes Mother Asthma Social History household members: family and friend(s) current occupational status: employed current occupation: [employer] history of recent travel: No sexually active: Yes Smoking Status: Light Smoker (<10/day) alcohol intake: never substance use type: does not use diet: low carbohydrate what type of physical activity do you participate in: none seatbelt use: always do you feel safe at home: Yes additional social history: single HPI ED FOLLOW UP Details: Emi Ashley is a delightful 24-year-old female who presents today for evaluation of the left index finger after she sustained a crush injury 28 Oct 2024 (1 week ago). 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 She reports sharp and severe pain ever since but tingling on the radial and ulnar borders as well with decreased sensation. She has never hurt this finger before. She has been unable to bend the finger ever since the time of the injury. She was referred to our clinic by the emergency room physician out of concern for inability to flex the digit. She was placed in AlumaFoam splint by the emergency department and asked to rest and elevate/ice the digit. Exam Details Left upper Extremity Inspection: Left index finger swelling but no bruising or lacerations. No nail deformities Palpation: Tenderness to palpation left index finger. Collateral ligaments intact and no dislocation of any joints with stress. Motor: Discussed risk benefit of injection with lidocaine for digital block , and patient elected to proceed . 1% lidocaine was injected for a left index finger digital block for the motor exam and patient was able to bend and extend the MP, PIP, and DIP joints (no flexor tendon injuries identifiable, FDP and FDS both isolated). Sensory: Intact to light touch on the radial and ulnar borders except she reports diminished sensation from approximately P2 to the fingertip on the left index finger on the radial and ulnar borders (2-3 out of 10 sensation versus 10 out of 10 on the contralateral side). Vascular: Finger tips are warm and well perfused with <2 second capillary refill. 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 The FDS and FDP are intact. She did have some soft tissue swelling on x-ray, I will follow-up with her in 1 week in clinic to check on her progress. (2) Neuropraxia of left upper extremity: Status: Acute Comment: Left index finger Plan I spoke to the patient extensively about her finger injury. Sometimes when the digital nerves are crushed, a neuropraxia can develop where there is numbness from a crush injury to the nerves. The nerves were clearly not transected though because this was a closed injury, so this should still be in continuity and will likely improve over time. Plan for referral to Occupational Therapy Plan Details Additional Comments: Patient happy with the plan. Will continue splinting with AlumaFoam until she sees the occupational therapist and then they will discuss plan 11/02/24 6720 Date Ermelinda Rao MD [facility] Signature: Date (if applicable) CC: [facility] Finger(s) Min 2 Viewson Finger(s) Min 2 Views [facility] Imaging Services [address] [place] [address] (833) Finger(s) Min 2 Views MR#: [id number] Acct: [id number] Name: EMI ASHLEY Rep #: [id number] : 2000 F 24 From: Vianney Teague PCP: Care Physician,No Primary Status: DEP AMB Study: Finger(s) Min 2 Views Date of Exam: 11/01/24 Exam# [id number] Ordering Dr: Ermelinda Rao MD PROCEDURE: FINGER(S) MIN 2 VIEWS 11/01/2024 REASON FOR EXAM: CONTUSION OF LEFT INDEX FINGER TECHNIQUE: Three views of the left index finger COMPARISON: None RAD/Finger(s) Min 2 Views IMPRESSION: No acute fracture or dislocations. Minimal soft tissue edema. No radiographic foreign body. Reading Location: [facility] CC: Dr. Ermelinda Rao MD; No Primary Care Physician Events Assistant: Signed [facility] Emergency Department Summary on 10-28-2024 Emergency Department Summary [facility] Medical Records Department [address] [place] [address] Emergency Department Summary 10/28/24 MR#: [id number] Acct: [id number] Name: EMI ASHLEY Rep #: [id number] : 2000 24 From: Ben Garber DO PCP: Care Physician,No Primary Status:DEP ER Location: ED HPI History of Present Illness HPI Narrative: Patient presents with injury to her left index finger that occurred today. Patient states she got it caught in a metal door at work. Patient states her pain is mainly over the distal phalanx of her left index finger. Patient admits to some tingling over the tip of her left index finger. Patient describes her pain as sharp. Patient states it is worse whenever she bumps it. Patient states nothing seems to help with the pain. Patient states she did have some bleeding earlier from underneath her nail plate. Patient denies any other injuries. Chief Complaint: Upper Extremity Injury Informant: patient Occured/Mechanism Mechanism/Context: Yes crush Comment: Closed in a metal door Onset/Context/Timing Onset: Today Context: Sudden Onset Timing: Continuous Quality of Pain: Sharp Location: Distal phalanx left index finger Worsened by: Bumping it Relieved by: Nothing Associated Symptoms Associated Symptoms: Positive for Parasthesia; Negative for Weakness or Loss of Funtion PFSH PFSH Medical History no medical history no medical history Home Medications ???Medication ???Instructions ???Recorded ???Last Taken ???Type ascorbate calcium (vitamin C) 500 500 mg PO DAILY 09/29/24 09/29/24 History mg tablet cyanocobalamin (vitamin B-12) 500 500 mcg PO DAILY 09/29/24 5 History mcg tablet (B-12 DOTS) alek (Zingiber officinalis) 500 500 mg PO DAILY 09/29/24 09/29/24 History mg capsule Allergy/AdvReac Type Severity Reaction Status Date / Time No Known Allergies Allergy Verified 10/28/24 15:02 Family History Grandfather Heart disease Diabetes Mother Asthma Surgical History History of placement of ear tubes Social History household members: family and friend(s) current occupational status: employed current occupation: [employer] history of recent travel: No sexually active: Yes Smoking Status: Light Smoker (<10/day) alcohol intake: never substance use type: does not use diet: low carbohydrate what type of physical activity do you participate in: none seatbelt use: always do you feel safe at home: Yes additional social history: single ROS ROS ED Constitutional Constitutional ED: Denies chills or fever(s) Eyes Eyes: Denies blurry vision or change in vision ENT ENT ED: Denies rhinorrhea or sore throat Cardiovascular Cardiovascular: Denies chest pain or palpitations Respiratory/Chest Respiratory/Chest: Denies cough or dyspnea Gastrointestinal Gastrointestinal: Denies nausea or vomiting Genitourinary Genitourinary ED: Denies dysuria or hematuria Musculoskeletal Musculoskeletal: Denies back pain or neck pain Integumentary Denies abscess or rash Neurologic Neurologic: Denies headache(s) or weakness Allergic/Immunologic Allergic/Immunologic ED: Denies mouth swelling or urticaria EXAM Physical Exam Const Vital Signs: 10/28/24 14:55 Temperature 97.8 F Temperature Source Temporal Pulse Rate 89 Respiratory Rate 15 Blood Pressure 135/95 H Blood Pressure Mean 108 Pulse Ox 100 Oxygen Delivery Method Room Air Positive well nourished and well developed General Appearance ED: well developed and NAD HEENT Reports moist mucous membranes Neck full ROM and supple Extremity Extremity Narrative: There is tenderness palpation of the distal phalanx of the left index finger. There is some mild edema and ecchymosis. There is no bony crepitance or step-off. There is no deformity noted. Range of motion was limited in flexion of the DIP joint secondary to pain. Sensation was diminished to light touch in the distal phalanx of the left index finger. There is good range of motion of the PIP and MP joints. Capillary refill was less than 2 seconds in all digits. Radial pulses are equal bilaterally. Neuro oriented x3, CN's II-XII intact bilaterally, moves all extremities and no focal motor deficits Sensorium / Orientation: alert Motor Exam: strength 5/5 throughout Psych mental status grossly normal MDM MDM MDM Narrative Medical decision making narrative: Differential diagnosis includes fracture, contusion, sprain, and tendon rupture. X-rays of the left index finger will be obtained to assess for fracture. History Record Review Additional record(s) reviewed:: Prior ED v (more content not included)... [facility] Finger(s) Min 2 Viewson 05-3 0-2024 Finger(s) Min 2 Views [facility] Imaging Services [address] [place] [address] Finger(s) Min 2 Views MR#: [id number] Acct: [id number] Name: EMI ASHLEY Rep #: [id number] : 2000 F 24 From: Vianney Teague PCP: Care Physician,No Primary Status: REG ER Study: Finger(s) Min 2 Views Date of Exam: 10/28/24 Exam# [id number] Ordering Dr: Ben Garber DO PROCEDURE: FINGER(S) MIN 2 VIEWS 10/28/2024 REASON FOR EXAM: INJURY/PAIN TECHNIQUE: Three views of the left 1st digit COMPARISON: None RAD/Finger(s) Min 2 Views IMPRESSION: No acute fracture or dislocations. Mild soft tissue edema. No radiographic foreign body. Reading Location: [id number] CC: Dr. Ben Garber DO; No Primary Care Physician Events Assistant: Signed [facility] 12 Lead EKGon 09-29-2024 12 Lead EKG [facility] Cardiovascular Services [address] [place] [address] 12 Lead EKG 09/29/24 1153 MR#: [id number] Acct: [id number] Name: EMI ASHLEY Rep #: [id number] : 2000 24 From: Isidro Addison MD Attending Dr: Status: DEP ER Ordering Dr: Nicola Breen MD Date: 09/29/24 Location: ED Sex: F C Admitted: Test Reason : CP Blood Pressure : */* mmHG Vent. Rate : 65 BPM Atrial Rate : 65 BPM P-R Int : 190 ms QRS Dur : 80 ms QT Int : 394 ms P-R-T Axes : 48 74 61 degrees QTcB Int : 409 ms Normal sinus rhythm with sinus arrhythmia Normal ECG Confirmed by ISIDRO ADDISON MD ([id number]), social media editor TIA BTAES ([id number]) on 09/30/2024 8:17:12 AM Referred By: Nicola Breen Confirmed By: ISIDRO ADDISON MD 09/30/24 0817 Date Isidro Addison MD CC: Dr. Nicola Breen MD; No Primary Care Physician Signed [facility] Absolute lymphocyte countOrd ered By: Nicola Breen on 09-29-2024 Lymphocytes Auto (Unsp spec) [#/Vol] 2.18 10*3/uL 0.83-4.51 [facility] Absolute neutrophil countOrd ered By: Nicola Breen on 09-29-2024 Neutrophils (Bld) [#/Vol] 7.7 10*3/uL 2.0-7.7 [facility] Anion gap in Serum or Plasma Ordered By: Nicola Breen on 09-29-2024 Anion gap [Moles/Vol] 9 mmol/L 5-15 [facility] Automated lymphocyte count a s percentage of total leukocytesOrdered By: Nicola Breen on 09-29-2024 Lymphocytes/100 WBC Auto (Unsp spec) 20.6 % [facility] BUN/creatinine ratioOrdered By: Nicola Breen on 09-29-2024 Urea nitrogen/Creatinine [Mass ratio] 13.1 mg/mg - [facility] Basic Metabolic Profile (BMP )on 09-29-2024 BUN/CRE 13.1 RATIO Normal - [facility] Comment on above: Performed By: #### L 500.2500, L501.4021, L100.0100, L300.8000 ####[facility] [address] [place], [address] Calcium [Mass/Vol] 9.6 mg/dL Normal 7.6-11.0 [facility] Comment on above: Performed By: #### L 500.2500, L501.4021, L100.0100, L300.8000 ####[facility] [address] [place], [address] Chloride [Moles/Vol] 102 mmol/L Normal 98-108 [facility] Comment on above: Performed By: #### L 500.2500, L501.4021, L100.0100, L300.8000 ####[facility] [address] [place], [address] CO2 [Moles/Vol] 23.9 mmol/L Normal 21.0-32.0 [facility] Comment on above: Performed By: #### L 500.2500, L501.4021, L100.0100, L300.8000 ####[facility] [address] [place], [address] Creatinine [Mass/Vol] 0.78 mg/dL Normal 0.70-1.20 [facility] Comment on above: Performed By: #### L 500.2500, L501.4021, L100.0100, L300.8000 ####[facility] [address] [place], [address] ECRCL 142.23 ml/min Normal 50-250 [facility] Comment on above: Performed By: #### L 500.2500, L501.4021, L100.0100, L300.8000 ####[facility] [address] [place], [address] GAP 9 Normal 5-15 [facility] Comment on above: Performed By: #### L 500.2500, L501.4021, L100.0100, L300.8000 ####[facility] [address] [place], [address] GFR/1.73 sq M.predicted among non-blacks MDRD (S/P/Bld) [Vol rate/Area] 110 mL/min/{1.73_m2} Normal >60 [facility] Comment on above: Result Comment: mL/m in/1.73m2 CKD-EPI Creatinine Equation (2020) Performed By: #### L 500.2500, L501.4021, L100.0100, L300.8000 ####[facility] [address] [place], [address] Glucose [Mass/Vol] 91 mg/dL Normal 70-99 [facility] Comment on above: Performed By: #### L 500.2500, L501.4021, L100.0100, L300.8000 ####[facility] [address] [place], [address] Potassium [Moles/Vol] 4.3 mmol/L Normal 3.3-5.1 [facility] Comment on above: Performed By: #### L 500.2500, L501.4021, L100.0100, L300.8000 ####[facility] [address] [place], [address] Sodium [Moles/Vol] 135 mmol/L Normal 133-145 [facility] Comment on above: Performed By: #### L 500.2500, L501.4021, L100.0100, L300.8000 ####[facility] [address] [place], [address] Urea nitrogen [Mass/Vol] 10 mg/dL Normal 4-19 [facility] Comment on above: Performed By: #### L 500.2500, L501.4021, L100.0100, L300.8000 ####[facility] [address] [place], [address] Basophil percentageOrdered B y: Nicola Breen on 09-29-2024 Basophils/100 WBC (Bld) 0.3 % 0-1 [facility] CBC W/Diff, Automatedon Absolute Lymph 2.18 X10 3/uL Normal 0.83-4.51 [facility] Comment on above: Performed By: #### L 500.2500, L501.4021, L100.0100, L300.8000 #### [facility] [address] [place], [address] Absolute Neut 7.7 X10 3/uL Normal 2.0-7.7 [facility] Comment on above: Performed By: #### L 500.2500, L501.4021, L100.0100, L300.8000 #### [facility] [address] [place], [address] Basophils/100 WBC (Bld) 0.3 % Normal 0-1 [facility] Comment on above: Performed By: #### L 500.2500, L501.4021, L100.0100, L300.8000 #### [facility] [address] [place], [address] Eosinophils/100 WBC (Bld) 0.8 % Normal 0-5 [facility] Comment on above: Performed By: #### L 500.2500, L501.4021, L100.0100, L300.8000 #### [facility] [address] [place], [address] Erythrocyte distribution width (RBC) [Ratio] 13.6 % Normal 11.6-14.6 [facility] Comment on above: Performed By: #### L 500.2500, L501.4021, L100.0100, L300.8000 #### [facility] [address] [place], [address] Hematocrit (Bld) [Volume fraction] 38.0 % Normal 37-47 [facility] Comment on above: Performed By: #### L 500.2500, L501.4021, L100.0100, L300.8000 #### [facility] [address] [place], [address] Hemoglobin (Bld) [Mass/Vol] 12.5 g/dL Normal 12.0-15.0 [facility] Comment on above: Performed By: #### L 500.2500, L501.4021, L100.0100, L300.8000 #### [facility] [address] [place], [address] IG% 0.400 Normal 0.0-0.9 [facility] Comment on above: Result Comment: IG% - Immature Granulocytes (promyelocytes, myelocytes and metamyelocytes) > 1% indicates that a LEFT SHIFT is Present. Performed By: #### L 500.2500, L501.4021, L100.0100, L300.8000 #### [facility] [address] [place], [address] Lymphocytes/100 WBC (Bld) 20.6 % Normal 19-41 [facility] Comment on above: Performed By: #### L 500.2500, L501.4021, L100.0100, L300.8000 #### [facility] [address] [place], [address] MCH (RBC) [Entitic mass] 26.7 pg Low 27.0-32.0 [facility] Comment on above: Performed By: #### L 500.2500, L501.4021, L100.0100, L300.8000 #### [facility] [address] [place], [address] MCHC (RBC) [Mass/Vol] 32.9 g/dL Normal 32-36 [facility] Comment on above: Performed By: #### L 500.2500, L501.4021, L100.0100, L300.8000 #### [facility] [address] [place], [address] MCV (RBC) [Entitic vol] 81.2 fL Normal 81-99 [facility] Comment on above: Performed By: #### L 500.2500, L501.4021, L100.0100, L300.8000 #### [facility] [address] [place], [address] Monocytes/100 WBC (Bld) 5.0 % Normal 0-10 [facility] Comment on above: Performed By: #### L 500.2500, L501.4021, L100.0100, L300.8000 #### [facility] [address] [place], [address] Neutrophils/100 WBC (Bld) 72.9 % High 47-70 [facility] Comment on above: Performed By: #### L 500.2500, L501.4021, L100.0100, L300.8000 #### [facility] [address] [place], [address] Nucleated RBC (Bld) [#/Vol] 0 10*3/uL Normal 0-5 [facility] Comment on above: Performed By: #### L 500.2500, L501.4021, L100.0100, L300.8000 #### [facility] [address] [place], [address] Platelet mean volume (Bld) [Entitic vol] 9.7 fL Normal 6.2-12.0 [facility] Comment on above: Performed By: #### L 500.2500, L501.4021, L100.0100, L300.8000 #### [facility] [address] [place], [address] Platelets (Bld) [#/Vol] 304 10*3/uL Normal 150-450 [facility] Comment on above: Performed By: #### L 500.2500, L501.4021, L100.0100, L300.8000 #### [facility] [address] [place], [address] RBC (Bld) [#/Vol] 4.68 10*6/uL Normal 4.2-5.4 [facility] Comment on above: Performed By: #### L 500.2500, L501.4021, L100.0100, L300.8000 #### [facility] [address] [place], [address] RDW SD 39.9 fl Normal 35.1-43.9 [facility] Comment on above: Performed By: #### L 500.2500, L501.4021, L100.0100, L300.8000 #### [facility] [address] [place], [address] WBC (Bld) [#/Vol] 10.6 10*3/uL Normal 4.4-11.0 [facility] Comment on above: Performed By: #### L 500.2500, L501.4021, L100.0100, L300.8000 #### [facility] [address] [place], [place], [address] Carbon dioxide, total [Moles /volume] in Central venous bloodOrdered By: Nicola Breen on 09-29-2024 CO2 [Moles/Vol] 23.9 mmol/L 21.0-32.0 [facility] Chest 1 View (Portable)on Chest 1 View (Portable) [facility] Imaging Services [address] [place] [address] Chest 1 View (Portable) MR#: [id number] Acct: [id number] Name: EMI ASHLEY Rep #: [id number] : 2000 F 24 From: Jonatan Kimbrough MD PCP: Care Physician,No Primary Status: REG ER Study: Chest 1 View (Portable) Date of Exam: 09/29/24 Exam# [id number] Ordering Dr: Nicola Breen MD PROCEDURE: CHEST 1 VIEW (PORTABLE), 09/29/2024 REASON FOR EXAM: CHEST PAIN TECHNIQUE: A single portable AP view of the chest was obtained. COMPARISON: 03/21/2024 FINDINGS: Heart: Unremarkable. Mediastinum: Unremarkable. Lungs/pleura: No focal consolidation. No sizeable pleural effusion or visible pneumothorax. Bones: Unremarkable. Lines and support devices: None. Other: None. RAD/Chest 1 View (Portable) IMPRESSION: No visible acute cardiopulmonary findings Reading Location: [id number] CC: Dr. Nicola Breen MD; No Primary Care Physician Events Assistant: Signed Normal [facility] Chloride assayOrdered By: Lior Breen on 09-29-2024 Chloride [Moles/Vol] 102 mmol/L 98-108 [facility] D-Dimer Quantitative (DVT/PE )on 09-29-2024 D-DIMER QUANT 0.46 FEU/ug/m Normal 0.27-0.49 [facility] Comment on above: Result Comment: NORM AL D-Dimer level (<0.50) indicates no DVT or PE. Performed By: #### L 500.2500, L501.4021, L100.0100, L300.8000 ####[facility] [address] [place], [address] Emergency Department Summary on 09-29-2024 Emergency Department Summary [facility] Medical Records Department [address] [place] [address] Emergency Department Summary 09/29/24 MR#: [id number] Acct: [id number] Name: EMI ASHLEY Rep #: [id number] : 2000 24 From: Nicola Breen MD PCP: Care Physician,No Primary Status:DEP ER Location: ED HPI History of Present Illness Chief Complaint: Syncope Informant: patient Onset/Context/Timing Onset: Today Context: Sudden Onset Current Severity: Gone Maximum Severity: Mild Narrative Narrative: 24-year-old female past medical history of prior syncope without specific diagnosis with prior outpatient cardiac monitoring. States that yesterday she started having sharp left-sided chest pain that the particular makes it better or worse. Today at home had a syncopal episode lasted about 1 to 2 minutes. Fell to the ground denies any injuries. No prior history of DVT or PE. No prior cardiac history. No history of seizures. Denies any headache. Did not bite her tongue. No incontinence. Prior similar symptoms: Yes Recent Illness/Hospitalizat ion: No PFSH PFSH Medical History no medical history no medical history Home Medications ???Medication ???Instructions ???Recorded ???Last Taken ???Type ascorbate calcium (vitamin C) 500 500 mg PO DAILY 09/29/24 09/29/24 History mg tablet cyanocobalamin (vitamin B-12) 500 500 mcg PO DAILY 09/29/24 5 History mcg tablet (B-12 DOTS) alek (Zingiber officinalis) 500 500 mg PO DAILY 09/29/24 09/29/24 History mg capsule Allergy/AdvReac Type Severity Reaction Status Date / Time No Known Allergies Allergy Verified 09/29/24 11:44 Family History Grandfather Heart disease Diabetes Mother Asthma Surgical History History of placement of ear tubes Social History household members: family and friend(s) current occupational status: employed current occupation: [employer] history of recent travel: No sexually active: Yes Smoking Status: Light Smoker (<10/day) alcohol intake: never substance use type: does not use diet: low carbohydrate what type of physical activity do you participate in: none seatbelt use: always do you feel safe at home: Yes additional social history: single ROS ROS ED ROS Narrative Denies recent illness. Left-sided chest pain that began yesterday. Constitutional Constitutional ED: Denies chills or fever(s) Eyes Eyes: Denies blurry vision ENT ENT ED: Denies ear pain Cardiovascular Cardiovascular: Reports chest pain; Denies palpitations or racing heartbeat Respiratory/Chest Respiratory/Chest: Denies cough, dyspnea or dyspnea on exertion Gastrointestinal Gastrointestinal: Denies abdominal pain, constipation, diarrhea, melena, nausea or vomiting Genitourinary Genitourinary ED: Denies dysuria or hematuria Musculoskeletal Musculoskeletal: Denies arthralgias, back pain, myalgias or neck pain Integumentary Denies abscess or Abrasions Neurologic Neurologic: Denies headache(s) Psychiatric Psychiatric: Denies anxiety or depression Endocrine Endocrinology: Denies cold intolerance Hematologic/Lymphati c Hematologic/Lymphati c: Reports none Allergic/Immunologic Allergic/Immunologic ED: Denies mouth swelling, tongue swelling or urticaria EXAM Physical Exam Narrative Exam Narrative: 22-year-old female sitting upright in bed. Vital signs are stable afebrile. Pulse ox is 99% on room air no hypoxia. She is in no distress. No family is present. H EENT exam pupils round reactive light. Extra motions are intact. No trauma to her face or scalp. Nontender. No facial droop. Normal speech. Neck nontender. No lymphadenopathy. Back nontender. Lungs clear to auscultation bilaterally. Heart regular rhythm no murmur rate about 65. Chest wall and ribs she has mild reproducible left-sided chest wall pain but there is no ecchymosis or bruising no crepitance or subcu air. No redness or discoloration. No bony deformity. Abdomen is soft and nontender. Moving all 4 extremities. 5 out of 5 change analyst strength. Dorsi plantarflexion intact. Calves are nontender without edema. Equal symmetrical radial pulses. Neurologically she is awake alert. No focal motor deficits. Const Vital Signs: 09/29/24 11:42 09/29/24 12:14 09/29/24 12:16 Temperature 97.8 F Temperature Source Temporal Pulse Rate 64 Respiratory Rate 15 Respiratory Effort Short of Breath Blood Pressure 126/85 H Blood Pressure Mean 98 Pulse Ox 99 Oxygen Delivery Method Room Air Room Air 09/29/24 12:48 09/29/24 13:03 09/29/24 14:12 Temperature Temperature Source Pulse Rate 65 61 78 Respiratory Rate 18 25 H Re (more content not included)... Normal [facility] Eosinophil percentageOrdered By: Nicola Breen on 09-29-2024 Eosinophils/100 WBC (Bld) 0.8 % 0-5 [facility] Erythrocyte distribution wid th ratioOrdered By: Nicola Breen on 09-29-2024 Erythrocyte distribution width (RBC) [Ratio] 13.6 % 11.6-14.6 [facility] Erythrocyte distribution wid th standard deviationOrdered By: Nicola Breen on 09-29-2024 Erythrocyte distribution width (RBC) [Ratio] 39.9 fl 35.1-43.9 [facility] Glomerular filtration rate ( GFR) estimation/1.73 sq m using serum, plasma, or whole bOrdered By: Nicola Breen on 09-29-2024 GFR/1.73 sq M.predicted among non-blacks MDRD (S/P/Bld) [Vol rate/Area] 110 mL/min/{1.73_m2} >60 [facility] Comment on above: mL/min/1.73m2 CKD-EP I Creatinine Equation (2020) Hematocrit Auto (Bld) [Volum e fraction]Ordered By: Nicola Breen on 09-29-2024 Hematocrit (Bld) [Volume fraction] 38.0 % 37-47 [facility] Hemoglobin measurementOrdere d By: Nicola Breen on 09-29-2024 Hemoglobin (Bld) [Mass/Vol] 12.5 g/dL 12.0-15.0 [facility] Immature granulocytes/100 WB C Auto (Bld)Ordered By: Nicola Breen on 09-29-2024 Immature granulocytes/100 WBC (Bld) 0.400 % 0.0-0.9 [facility] Comment on above: IG% - Immature Granu locytes (promyelocytes, myelocytes and metamyelocytes) > 1% indicates that a LEFT SHIFT is Present. L501.4021on 09-29-2024 Trop T High Sen < 6 Normal <=14 [facility] Comment on above: Performed By: #### L 500.2500, L501.4021, L100.0100, L300.8000 ####[facility] [address] [place], [address] MCV (mean corpuscular volume ) determinationOrdered By: Nicola Breen on 09-29-2024 MCV (RBC) [Entitic vol] 81.2 fL 81-99 [facility] Mean corpuscular hemoglobin (MCH) determinationOrdered By: Nicola Breen on 09-29-2024 MCH (RBC) [Entitic mass] 26.7 pg Low 27.0-32.0 [facility] Mean corpuscular hemoglobin concentration (MCHC) determinationOrdered By: Nicola Breen on 09-29-2024 MCHC (RBC) [Mass/Vol] 32.9 g/dL 32-36 [facility] Mean platelet volume determi nationOrdered By: Nicola Breen on 09-29-2024 Platelet mean volume (Bld) [Entitic vol] 9.7 fL 6.2-12.0 [facility] Monocyte percentageOrdered B y: Nicola Breen on 09-29-2024 Monocytes/100 WBC (Bld) 5.0 % 0-10 [facility] Neutrophil percentageOrdered By: Nicola Breen on 09-29-2024 Neutrophils/100 WBC (Bld) 72.9 % High 47-70 [facility] Nucleated red blood cell per centageOrdered By: Nicola Breen on 09-29-2024 Nucleated RBC/100 WBC (Bld) [Ratio] 0 % 0-5 [facility] Platelet countOrdered By: Lior Breen on 09-29-2024 Platelets (Bld) [#/Vol] 304 10*3/uL 150-450 [facility] Potassium measurement (mass/ volume)Ordered By: Nicola Breen on 09-29-2024 Potassium (Unsp spec) [Mass/Vol] 4.3 mmol/L 3.3-5.1 [facility] RBC Auto (Bld) [#/Vol]Ordere d By: Nicola Breen on 09-29-2024 RBC (Bld) [#/Vol] 4.68 10*6/uL 4.2-5.4 [facility] Serum creatinine measurement (mass/volume)Ordered By: Nicola Breen on 09-29-2024 Creatinine [Mass/Vol] 0.78 mg/dL 0.70-1.20 [facility] Serum glucose measurement (m ass/volume)Ordered By: Nicola Breen on 09-29-2024 Glucose [Mass/Vol] 91 mg/dL 70-99 [facility] Serum or plasma calcium urvashi urement (mass/volume)Ordered By: Nicola Breen on 09-29-2024 Calcium [Mass/Vol] 9.6 mg/dL 7.6-11.0 [facility] Serum or plasma urea nitroge n measurement (mass/volume)Ordered By: Nicola Breen on 09-29-2024 Urea nitrogen [Mass/Vol] 10 mg/dL 4-19 [facility] Sodium levelOrdered By: Nicola Breen on 09-29-2024 Sodium [Moles/Vol] 135 mmol/L 133-145 [facility] Troponin T.cardiac [Mass/vol ume] in Serum or Plasma by High sensitivity methodOrdered By: Nicola Breen on 09-29-2024 Troponin T.cardiac High sensitivity method [Mass/Vol] < 6 ng/L <14 [facility] White blood cell (WBC) count Ordered By: Nicola Breen on 09-29-2024 WBC (Bld) [#/Vol] 10.6 10*3/uL 4.4-11.0 [facility] 12 Lead EKGon 03-21-2024 12 Lead EKG [facility] Cardiovascular Services [address] [place] [address] 12 Lead EKG 03/21/24 0713 MR#: [id number] Acct: [id number] Name: EMI ASHLEY Rep #: [id number] : 2000 23 From: Isidro Addison MD Attending Dr: Status: DEP ER Ordering Dr: Sendy Lambert DO Date: 03/21/24 Location: ED Sex: F C Admitted: Test Reason : SYNCOPE Blood Pressure : / mmHG Vent. Rate : 079 BPM Atrial Rate : 079 BPM P-R Int : 180 ms QRS Dur : 082 ms QT Int : 368 ms P-R-T Axes : 018 027 011 degrees QTc Int : 421 ms Normal sinus rhythm Normal ECG Confirmed by ISIDRO ADDISON MD ([id number]), social media editor TIA BATES ([id number]) on 03/23/2024 9:45:37 AM Also confirmed by ISIDRO ADDISON MD ([id number]), social media editor TIA BATES ([id number]) on 03/23/2024 9:53:38 AM Referred By: Confirmed By:ISIDRO ADDISON MD 03/23/24 0953 Date Isidro Addison MD CC: Dr. Ben Garber, DO; Dr. Sendy Lambert, DO; No Primary Care Physician Signed Normal [facility] Basic Metabolic Profile (BMP )on 03-21-2024 BUN/CRE 11.6 RATIO Normal 03-20 [facility] Comment on above: Order Comment: 'TROP ' Serial specimen #1, #2 or #3: 1 Performed By: #### L 500.2500, L100.0100, L700.6800, L300.8000, L501.4020 ####[facility] [address] [place], [address] CA,Total 9.4 mg/dL Normal 8.5-10.1 [facility] Comment on above: Order Comment: 'TROP ' Serial specimen #1, #2 or #3: 1 Performed By: #### L 500.2500, L100.0100, L700.6800, L300.8000, L501.4020 ####[facility] [address] [place], [address] Chloride [Moles/Vol] 103 mmol/L Normal 98-107 [facility] Comment on above: Order Comment: 'TROP ' Serial specimen #1, #2 or #3: 1 Performed By: #### L 500.2500, L100.0100, L700.6800, L300.8000, L501.4020 ####[facility] [address] [place], [address] CO2 [Moles/Vol] 24.0 mmol/L Normal 21.0-32.0 [facility] Comment on above: Order Comment: 'TROP ' Serial specimen #1, #2 or #3: 1 Performed By: #### L 500.2500, L100.0100, L700.6800, L300.8000, L501.4020 ####[facility] [address] [place], [address] Creatinine [Mass/Vol] 0.95 mg/dL Normal 0.55-1.02 [facility] Comment on above: Order Comment: 'TROP ' Serial specimen #1, #2 or #3: 1 Result Comment: The validity of the calculated GFR GFRAA in patients over 70 years has not been determined. Clinical correlation is essential. Performed By: #### L 500.2500, L100.0100, L700.6800, L300.8000, L501.4020 ####[facility] [address] [place], [address] ECRCL 120.26 ml/min Normal [facility] Comment on above: Order Comment: 'TROP ' Serial specimen #1, #2 or #3: 1 Performed By: #### L 500.2500, L100.0100, L700.6800, L300.8000, L501.4020 ####[facility] [address] [place], [address] EST GFR - AA 95 mL/min Normal >60 [facility] Comment on above: Order Comment: 'TROP ' Serial specimen #1, #2 or #3: 1 Result Comment: Afri can Tanz[place] GFR Calc Performed By: #### L 500.2500, L100.0100, L700.6800, L300.8000, L501.4020 ####[facility] [address] [place], [address] GAP 10 Normal 5-15 [facility] Comment on above: Order Comment: 'TROP ' Serial specimen #1, #2 or #3: 1 Performed By: #### L 500.2500, L100.0100, L700.6800, L300.8000, L501.4020 ####[facility] [address] [place], [address] GFR/1.73 sq M.predicted among non-blacks MDRD (S/P/Bld) [Vol rate/Area] 79 mL/min/{1.73_m2} Normal >60 [facility] Comment on above: Order Comment: 'TROP ' Serial specimen #1, #2 or #3: 1 Result Comment: Non- GFR Calc Performed By: #### L 500.2500, L100.0100, L700.6800, L300.8000, L501.4020 ####[facility] [address] [place], [address] Glucose [Mass/Vol] 111 mg/dL High 74-106 [facility] Comment on above: Order Comment: 'TROP ' Serial specimen #1, #2 or #3: 1 Result Comment: Fast ing Glucose result from 100 to 125 mg/dL suggests IMPAIRED HOMEOSTASIS per A.D.A. criteria. Performed By: #### L 500.2500, L100.0100, L700.6800, L300.8000, L501.4020 ####[facility] [address] [place], [address] Potassium [Moles/Vol] 3.9 mmol/L Normal 3.5-5.1 [facility] Comment on above: Order Comment: 'TROP ' Serial specimen #1, #2 or #3: 1 Performed By: #### L 500.2500, L100.0100, L700.6800, L300.8000, L501.4020 ####[facility] [address] [place], [address] Sodium [Moles/Vol] 136 mmol/L Normal 136-145 [facility] Comment on above: Order Comment: 'TROP ' Serial specimen #1, #2 or #3: 1 Performed By: #### L 500.2500, L100.0100, L700.6800, L300.8000, L501.4020 ####[facility] [address] [place], [address] Urea nitrogen [Mass/Vol] 11 mg/dL Normal 7-18 [facility] Comment on above: Order Comment: 'TROP ' Serial specimen #1, #2 or #3: 1 Performed By: #### L 500.2500, L100.0100, L700.6800, L300.8000, L501.4020 ####[facility] [address] [place], [address] CBC W/Diff, Automatedon 10-2 -2023 Absolute Lymph 1.14 X10 3/uL Normal 0.83-4.51 [facility] Comment on above: Performed By: #### L 100.0100 ####[facility] [address] [place], [address] Absolute Neut 6.6 X10 3/uL Normal 2.0-7.7 [facility] Comment on above: Performed By: #### L 100.0100 ####[facility] [address] [place], [address] Basophils/100 WBC (Bld) 0.4 % Normal 0-1 [facility] Comment on above: Performed By: #### L 100.0100 ####[facility] [address] [place], [address] Eosinophils/100 WBC (Bld) 0.1 % Normal 0-5 [facility] Comment on above: Performed By: #### L 100.0100 ####[facility] [address] [place], [address] Erythrocyte distribution width (RBC) [Ratio] 14.3 % Normal 11.6-14.6 [facility] Comment on above: Performed By: #### L 100.0100 ####[facility] [address] [place], [address] Hematocrit (Bld) [Volume fraction] 35.2 % Low 37-47 [facility] Comment on above: Performed By: #### L 100.0100 ####[facility] [address] [place], [address] Hemoglobin (Bld) [Mass/Vol] 11.2 g/dL Low 12.0-15.0 [facility] Comment on above: Performed By: #### L 100.0100 ####[facility] [address] [place], [address] IG% 0.400 Normal 0.0-0.9 [facility] Comment on above: Result Comment: IG% - Immature Granulocytes (promyelocytes, myelocytes and metamyelocytes) > 1% indicates that a LEFT SHIFT is Present. Performed By: #### L 100.0100 ####[facility] [address] [place], [address] Lymphocytes/100 WBC (Bld) 13.4 % Low 19-41 [facility] Comment on above: Performed By: #### L 100.0100 ####[facility] [address] [place], [address] MCH (RBC) [Entitic mass] 25.9 pg Low 27.0-32.0 [facility] Comment on above: Performed By: #### L 100.0100 ####[facility] [address] [place], [address] MCHC (RBC) [Mass/Vol] 31.8 g/dL Low 32-36 [facility] Comment on above: Performed By: #### L 100.0100 ####[facility] [address] [place], [address] MCV (RBC) [Entitic vol] 81.3 fL Normal 81-99 [facility] Comment on above: Performed By: #### L 100.0100 ####[facility] [address] [place], [address] Monocytes/100 WBC (Bld) 8.7 % Normal 0-10 [facility] Comment on above: Performed By: #### L 100.0100 ####[facility] [address] [place], [address] Neutrophils/100 WBC (Bld) 77.0 % High 47-70 [facility] Comment on above: Performed By: #### L 100.0100 ####[facility] [address] [place], [address] Nucleated RBC (Bld) [#/Vol] 0 10*3/uL Normal 0-5 [facility] Comment on above: Performed By: #### L 100.0100 ####[facility] [address] [place], [address] Platelet mean volume (Bld) [Entitic vol] 9.4 fL Normal 6.2-12.0 [facility] Comment on above: Performed By: #### L 100.0100 ####[facility] [address] [place], [address] Platelets (Bld) [#/Vol] 231 10*3/uL Normal 150-450 [facility] Comment on above: Performed By: #### L 100.0100 ####[facility] [address] [place], [address] RBC (Bld) [#/Vol] 4.33 10*6/uL Normal 4.2-5.4 [facility] Comment on above: Performed By: #### L 100.0100 ####[facility] [address] [place], [address] RDW SD 42.7 fl Normal 35.1-43.9 [facility] Comment on above: Performed By: #### L 100.0100 ####[facility] [address] [place], [address] WBC (Bld) [#/Vol] 8.5 10*3/uL Normal 4.4-11.0 [facility] Comment on above: Performed By: #### L 100.0100 ####[facility] [address] [place], [address] Absolute Neut Normal 2.0-7.7 [facility] Comment on above: Result Comment: This specimen has been REJECTED due to Laboratory criteria: MisLabelled. TOMSA CASTRO has been notified of need of recollection. 03/21/24713 Margareth Scottell Performed By: #### L 500.2500, L100.0100, L700.6800, L300.8000, L501.4020 ####[facility] [address] [place], [address] HCT Normal 37-47 [facility] Comment on above: Result Comment: This specimen has been REJECTED due to Laboratory criteria: MisLabelled. TOMAS CASTRO has been notified of need of recollection. 03/21/24713 Margareth Scottell Performed By: #### L 500.2500, L100.0100, L700.6800, L300.8000, L501.4020 ####[facility] [address] [place], [address] HGB Normal 12.0-15.0 [facility] Comment on above: Result Comment: This specimen has been REJECTED due to Laboratory criteria: MisLabelled. TOMAS CASTRO has been notified of need of recollection. 03/21/24713 Margareth C Kelsi Performed By: #### L 500.2500, L100.0100, L700.6800, L300.8000, L501.4020 ####[facility] [address] [place], [address] MCH Normal 27.0-32.0 [facility] Comment on above: Result Comment: This specimen has been REJECTED due to Laboratory criteria: MisLabelled. TOMAS CASTRO has been notified of need of recollection. 03/21/24713 Margareth C Kelsi Performed By: #### L 500.2500, L100.0100, L700.6800, L300.8000, L501.4020 ####[facility] [address] [place], [address] MCHC Normal 32-36 [facility] Comment on above: Result Comment: This specimen has been REJECTED due to Laboratory criteria: MisLabelled. TOMAS CASTRO has been notified of need of recollection. 03/21/24713 Margareth C [place] Performed By: #### L 500.2500, L100.0100, L700.6800, L300.8000, L501.4020 ####[facility] [address] [place], [address] MCV Normal 81-99 [facility] Comment on above: Result Comment: This specimen has been REJECTED due to Laboratory criteria: MisLabelled. TOMAS CASTRO has been notified of need of recollection. 03/21/24713 Margareth C [place] Performed By: #### L 500.2500, L100.0100, L700.6800, L300.8000, L501.4020 ####[facility] [address] [place], [address] NEUT% Normal 47-70 [facility] Comment on above: Result Comment: This specimen has been REJECTED due to Laboratory criteria: MisLabelled. TOMAS CASTRO has been notified of need of recollection. 03/21/24713 Margareth C Kelsi Performed By: #### L 500.2500, L100.0100, L700.6800, L300.8000, L501.4020 ####[facility] [address] [place], [address] PLT Normal 150-450 [facility] Comment on above: Result Comment: This specimen has been REJECTED due to Laboratory criteria: MisLabelled. TOMAS CASTRO has been notified of need of recollection. 03/21/24713 Margareth C Kelsi Performed By: #### L 500.2500, L100.0100, L700.6800, L300.8000, L501.4020 ####[facility] [address] [place], [address] RBC Normal 4.2-5.4 [facility] Comment on above: Result Comment: This specimen has been REJECTED due to Laboratory criteria: MisLabelled. TOMAS CASTRO has been notified of need of recollection. 03/21/24713 Margareth C Kelsi Performed By: #### L 500.2500, L100.0100, L700.6800, L300.8000, L501.4020 ####[facility] [address] [place], [address] RDW CV Normal 11.6-14.6 [facility] Comment on above: Result Comment: This specimen has been REJECTED due to Laboratory criteria: MisLabelled. TOMAS CASTRO has been notified of need of recollection. 03/21/24713 Margareth C [place] Performed By: #### L 500.2500, L100.0100, L700.6800, L300.8000, L501.4020 ####[facility] [address] [place], [address] RDW SD Normal 35.1-43.9 [facility] Comment on above: Result Comment: This specimen has been REJECTED due to Laboratory criteria: MisLabelled. TOMAS CASTRO has been notified of need of recollection. 03/21/2414 Margareth Lacy Kelsi Performed By: #### L 500.2500, L100.0100, L700.6800, L300.8000, L501.4020 ####[facility] [address] [place], [address] WBC Normal 4.4-11.0 [facility] Comment on above: Result Comment: This specimen has been REJECTED due to Laboratory criteria: MisLabelled. TOMAS CASTRO has been notified of need of recollection. 03/21/2414 Margareth Lacy Kelsi Performed By: #### L 500.2500, L100.0100, L700.6800, L300.8000, L501.4020 ####[facility] [address] [place], [address] CTA Chest W/WO Contraston CTA Chest W/WO Contrast [facility] [address] [place] [address] CTA Chest W/WO Contrast MR#: [id number] Acct: [id number] Name: EMI ASHLEY Ho Rep #: [id number] : 2000 F 23 From: Yuriy Teague PCP: Care Physician,No Primary Status: REG ER Study: CTA Chest W/WO Contrast Date of Exam: 03/21/24 Exam# [id number] Ordering Dr: Ben Garber DO [id number] STUDY: CTA CHEST REASON FOR EXAM: Female, 23 years old. Elevated D-dimer RADIATION DOSAGE (If Supplied By Facility): CTDIvol = ( 11.74 ) mGy, DLP = ( 423.01 ) mGycm TECHNIQUE: The examination was performed with the intravenous administration of IV 100mL Isovue-370. Post-processing of the angiographic images was performed, with multiplanar reformation and 3D reconstruction. The protocol utilizes one or more of the following dose reduction techniques: automated exposure control, adjustment of mA and/or kV according to patient size,and/or use of iterative reconstruction technique. COMPARISON: No relevant prior comparison study available FINDINGS: Normal enhancement of the main pulmonary artery and right and left pulmonary arteries. Normal enhancement of the bilateral peripheral pulmonary arteries. There is no demonstrated pulmonary embolism. Normal thoracic aorta and visualized great vessels. There is no demonstrated aortic dissection. Normal heart and pericardium. Normal mediastinum. Normal hilar regions. Normal visualized trachea and bronchi. Consolidation with loss of volume in the lingula could be due to pneumonia. There are no pleural effusions. Normal chest wall structures. No demonstrated acute osseous changes. Normal visualized upper abdomen. CT/CTA Chest W/WO Contrast IMPRESSION: 1. No evidence of pulmonary embolism or aortic dissection. 2. Consolidation in the lingula with loss of volume could be due to pneumonia. Electronically Signed: Yuriy Avendaño MD at 8:54 EDT , CC: Dr. Ben Garber, DO; No Primary Care Physician Events Assistant: Signed Normal [facility] D-Dimer Quantitative (DVT/PE )on 03-21-2024 D-DIMER QUANT 0.66 FEU/ug/m Invalid Interpretation Code 0.27-0.49 [facility] Comment on above: Order Comment: CRITI HOLLIE VALUE CALLED TO LULI MOSHERG1 [address].RESULTS READ BACK BY SAME. Result Comment: D-Di analisa ELEVATED (>0.49): Additional studies and clinical assessments are indicated to conclude diagnosis of: Deep Vein Thrombosis (DVT) or Pulmonary Embolism (PE) Performed By: #### L 500.2500, L100.0100, L700.6800, L300.8000, L501.4020 ####[facility] [address] [place], [address] Emergency Department Summary on 03-21-2024 Emergency Department Summary [facility] Medical Records Department [address] [place] [address] Emergency Department Summary 03/21/24 MR#: [id number] Acct: [id number] Name: EMI ASHLEY Rep #: [id number] : 2000 23 From: Sendy Lambert DO PCP: Care Physician,No Primary Status:REG ER Location: ED ADDENDUM by Dr. Ben Garber DO on 03/21/24 at 0942 Care of the patient was turned over to me pending lab and x-ray results. CBC was reviewed. There is a mild anemia with a hemoglobin of 11.2 and hematocrit 35.2. This is unchanged compared to previous results. Basic metabolic profile was reviewed and was essentially within normal limits. High-sensitivity troponin was reviewed and was less than 3. Serum hCG was reviewed and was negative. D-dimer was reviewed and was elevated at 0.66. Because of this, CTA of the chest was obtained. CT of the chest did not reveal any evidence of pulmonary embolism or aortic dissection. Orthostatic vital signs were obtained and were within normal limits. Patient was advised of her findings. Patient was instructed to follow-up with her primary care physician 5 to 7 days. I will attempt to place a Holter monitor on the patient for the next 24 to 48 hours pending availability. Patient understands and is agreeable with the plan. All questions were answered. 03/21/24 0942 Cosigner Signature (if applicable): cc: No Primary Care Physician * Signed HPI History of Present Illness Chief Complaint: Syncope Detail of Chief Complaint: Syncope Informant: patient Narrative Narrative: Patient presents with syncope that occurred last evening and then again this morning. Patient states that last night she had gotten out of the shower and felt lightheaded and dizzy and folic her heart was racing and then remembers waking up on the ground. No loss of consciousness. Patient states she has been feeling hot and cold since last evening but otherwise has not had fever or cough. She tells me she had a syncopal episode about a year ago at which time she was seen at [facility] and wore a bus driver/monitor for 30 days but no real etiology was found. Patient states this morning she woke up and got out of bed and was lightheaded and dizzy and then passed out again for short time. No injury. Again felt like her heart was racing at the time. Patient's last menstrual period was last week and does not think she is . PFSH PFSH Home Medications ???Medication ???Instructions ???Recorded ???Last Taken ???Type NK 03/21/24 Unknown History Allergy/AdvReac Type Severity Reaction Status Date / Time No Known Allergies Allergy Verified 04/20/23 14:38 Family History Grandfather Heart disease Diabetes Mother Asthma Surgical History History of placement of ear tubes Social History household members: family and friend(s) current occupational status: employed current occupation: [employer] history of recent travel: No sexually active: Yes Smoking Status: Current every day smoker tobacco type: cigarettes alcohol intake: never substance use type: does not use diet: low carbohydrate what type of physical activity do you participate in: none seatbelt use: always do you feel safe at home: Yes additional social history: single ROS ROS ED Review of Systems ROS Unobtainable: other Constitutional Constitutional ED: Reports lethargy; Denies chills, fever(s), sweats or weight loss Eyes Eyes: Denies blurry vision, change in vision or diplopia ENT ENT ED: Denies rhinorrhea or sore throat Cardiovascular Cardiovascular: Reports racing heartbeat; Denies chest pain or orthopnea Respiratory/Chest Respiratory/Chest: Denies cough, dyspnea, dyspnea on exertion, orthopnea or sputum Gastrointestinal Gastrointestinal: Denies abdominal pain, diarrhea, nausea or vomiting Genitourinary Genitourinary ED: Denies dysuria, hematuria or urinary frequency Musculoskeletal Musculoskeletal: Denies arthralgias, back pain, myalgias or neck pain Integumentary Denies abscess, Abrasions or rash Neurologic Neurologic: Denies headache(s) or weakness Psychiatric Psychiatric: Denies anxiety, depression or suicidal thoughts Endocrine Endocrinology: Denies polydipsia, polyphagia or polyuria Hematologic/Lymphati c Hematologic/Lymphati c: Denies easy bleeding, easy bruising or lymphadenopathy Allergic/Immunologic Allergic/Immunologic ED: Denies mouth swelling, tongue swelling or urticaria EXAM Physical Exam Const Vital Signs: 03/21/24 06:32 03/21/24 06:36 Temperature 98.3 F Temperature Source Oral Pulse Rate 100 Respiratory Rate 16 Respiratory Effort Normal Respiratory (more content not included)... Normal [facility] L501.4020on 03-21-2024 TROPONIN-I HS < 3 Low 3.0-54.0 [facility] Comment on above: Order Comment: 'TROP ' Serial specimen #1, #2 or #3: 1 Result Comment: Jaswant cuellar Note: New Test Units and Gender Specific Reference Ranges. For more information see Policy Stat Procedure [place] High Sensitivity Troponin (TNIH) and attachments. Performed By: #### L 500.2500, L100.0100, L700.6800, L300.8000, L501.4020 ####[facility] [address] [place], [place], [id number] ,Serum,hCG Quali.on 03-21-2024 HCG, SERUM QUAL Negative Normal [facility] Comment on above: Performed By: #### L 500.2500, L100.0100, L700.6800, L300.8000, L501.4020 ####[facility] [address] [place], [place], [id number] ANKLE COMPLETE LT 10-08-19 24 ANKLE COMPLETE [place] [address] Patient: EMI ASHLEY Phone#: : 2000 Age: 23 Gender: F Pt. Type: ER Account: [id number] Location: [facility] Ordering: DR. MARILEE PAN Exam Date: 10/08/2023/6:45 Family Phys: Charge Code: [id number] Physician: Garza Order #: [id number] Dose#: PROCEDURE: X-RAY ANKLE COMPLETE LT MIN 3 VIEWS COMPARISON: None. INDICATIONS: Fall FINDINGS: BONES: Normal. No significant arthropathy or acute abnormality. SOFT TISSUES: MILD LATERAL SOFT TISSUE SWELLING. EFFUSION: None visible. OTHER: Negative. CONCLUSION: No acute disease. Dictated by: Ashley Galvan MD on 10/08/2023 at 8:48 Approved by: Ashley Galvan MD on 10/08/2023 at 8:52 Normal [facility] ECG COMPLETEon 06-26-2023 ECG COMPLETE Ventricular Rate : 92 BPM Atrial Rate : 92 BPM P-R Interval : 196 ms QRS Duration : 86 ms Q-T Interval : 378 ms QTC Calculation(Bazett) : 467 ms Calculated P Meridian : 30 degrees Calculated R Meridian : 56 degrees Calculated T Meridian : 21 degrees Normal sinus rhythm Possible Left atrial enlargement No significant ST segment changes Nonspecific ECG Confirmed by RACHEL CASTILLO DO ([id number]) on 06/26/2023 12:44:30 AM NAME : EMI ASHLEY PID : [id number] : 2000 Gender : Female Race : ORD : [id number] Procedure Date : 2023 22:24:09 Edit Date : Jun 26 2023 00:44:33 Diagnosis: Normal sinus rhythm Possible Left atrial enlargement No significant ST segment changes Nonspecific ECG Confirmed by RACHEL CASTILLO DO ([id number]) on 06/26/2023 12:44:30 AM Test Reason : HCS Location : 3 : ED ED Overread By : RACHEL CASTILLO DO Edited By : RACHEL CASTILLO DO Referred By : , Acquired by : [facility] ED PROV NOTEon 06-26-2023 ED PROV NOTE HNO ID: [id number] Author: RACHEL CASTILLO DO Service: Emergency Medicine Author Type: Physician Type: ED Provider Notes Filed: 06/26/2023 00:41 Note Text: ED Provider Note Patient Name: Emi Ashley : 2000 SERVICE DATE: 06/25/23 History Patient presents with: Chest Pain: Anxiety, N/V, pt was out drinking and onset CP happened Ms. Ashley is a 23-year-old female who presents to the ED for evaluation of chest pain, nausea, vomiting and anxiety. Patient was celebrating her 23st birthday earlier today and states that she had 6 shots of liquor quickly. Shortly thereafter she had a burning sensation in her esophagus and she started having some palpitations. She subsequently vomited and she was in the company of her mother and requested that she come to the ED for further evaluation. By the time she arrived here she states her symptoms have since resolved. Patient has drank a few times previously but never drank this much previously. Patient is no longer having any active chest pain. She denied any hematemesis associate with the episode. She denies any associate abdominal pain. Patient was feeling quite anxious but was able to calm down after her ED assessment. Denies any thoughts of harming herself or others. Patient admits to history of anxiety but is not currently on medications for this. Patient reported recent mini stroke, however the details surrounding this are somewhat unclear. She denies any residual deficits and denies any other major prior cardiac history. She denies any calf pain, lower extremity swelling, known malignancy, recent surgery, recent travel, hormone use, hemoptysis or history of prior DVT/PE. PAST MEDICAL HISTORY Diagnosis Date Mini stroke History reviewed. No pertinent surgical history. No family history on file. Social History Tobacco Use Smoking status: Never Smokeless tobacco: Current Vaping Use Vaping Use: current everyday user Substances: Nicotine Substance and Sexual Activity Alcohol use: Yes Comment: montly Drug use: Never Sexual activity: Not Currently ALLERGIES No Known Allergies Review of Systems All pertinent positives and negatives as per HPI, otherwise negative Physical Exam Vitals [06/25/23 2140] BP Pulse Temp Temp src Resp SpO2 Weight Height 122/73 85 36.4 ?C (97.5 ?F) Oral 14 95 % 81.6 kg (180 lb) 1.727 m (5' 8) Physical Exam Vitals and nursing note reviewed. Constitutional: General: She is not in acute distress. Appearance: She is not ill-appearing, toxic-appearing or diaphoretic. HENT: Head: Normocephalic. Nose: Nose normal. No congestion. Mouth/Throat: Mouth: Mucous membranes are moist. Eyes: General: No scleral icterus. Pupils: Pupils are equal, round, and reactive to light. Cardiovascular: Rate and Rhythm: Normal rate and regular rhythm. Pulses: Normal pulses. Heart sounds: No murmur heard. Comments: Distal pulses equal and intact in all four extremities. No calf pain or peripheral edema. Pulmonary: Effort: Pulmonary effort is normal. No respiratory distress. Breath sounds: Normal breath sounds. Abdominal: General: Abdomen is flat. Tenderness: There is no abdominal tenderness. There is no guarding. Musculoskeletal: General: No swelling or deformity. Normal range of motion. Cervical back: Normal range of motion. No tenderness. Skin: General: Skin is warm. Capillary Refill: Capillary refill takes less than 2 seconds. Findings: No rash. Neurological: General: No focal deficit present. Mental Status: She is alert and oriented to person, place, and time. Motor: No weakness. Psychiatric: Mood and Affect: Mood normal. Behavior: Behavior normal. Comments: Patient appears mildly intoxicated, but she is pleasantly conversant. No significant anxiety noted during my interview. Future oriented and laughing about the episode. Diagnostic Testing ED Labs Ordered and Reviewed - No data to display Procedures ED Course / Clinical Impression Clinical Impressions as of 06/26/23 0037 Palpitations Alcohol use MDM / Disposition / Plan Ms. Ashley is a 23-year-old female who presented to the ED for evaluation of palpitations and chest pain that started while consuming alcohol earlier today. Patient was celebrating her 23st birthday and took a number of shots when she started having a burning in her epigastrium. She subsequently vomited and was feeling quite anxious reportedly and was brought to the ED by her mother. Once here patient is no longer having any symptoms whatsoever. She states that the vomiting relieved her symptoms prior to arrival. Her vital signs were within normal limits. Her EKG showed no acute arrhythmia or ischemia. Some labs were initially ordered from triage however I did not feel these were necessarily given the overall provided history. Her chest x-ray shows no evidence of esophageal tear from her emesis and she denied any (more content not included)... Normal [facility] XR CHEST 2V FRONTAL/LATon XR CHEST 2V FRONTAL/LAT * * *Final Repor t* * * DATE OF EXAM: 2023 10:35PM UDX [id number] - XR CHEST 2V FRONTAL/LAT / PROCEDURE REASON: Chest Pain * * * * Physician Interpretation * * * * EXAMINATION: TWO XRAY VIEWS OF THE CHEST2023 8:50 pm CHEST AP/PA and LATERAL EXAM DESCRIPTION: COMPARISON: None available HISTORY: ORDERING SYSTEM PROVIDED HISTORY: TECHNOLOGIST PROVIDED HISTORY: STATED HISTORY: PT STATES HER HEART STARTED HURTING AFTER 4 MIXED DRINKS AND 8 SHOTS. Reason for Exam: Chest Pain FINDINGS: PA and lateral radiographs of the chest were obtained. The lungs are clear without evidence of focal consolidation, mass, pleural effusion, or pneumothorax. The cardiomediastinal silhouette is unremarkable. The bones and soft tissues are unremarkable. IMPRESSION: No acute cardiopulmonary disease. Electronically signed By Yaz Godfrey MD 2023 11:17:05 PM EST Workstation ID : [id number] Events Assistant: UDRAC Transcribe Date/Time: 2023 11:17P Dictated by : YAZ GODFREY MD This examination was interpreted and the report reviewed and electronically signed by: YAZ GODFREY MD on 2023 11:17PM EST [id number] CN [facility] ED NOTEon 2023 ED NOTE HNO ID: [id number] Author: EDOUARD WALLACE RN Service: ? Author Type: Registered Nurse Type: ED Notes Filed: 2023 21:35 Note Text: Bed: 14-ED Expected date: 06/25/23 Expected time: 9:33 PM Means of arrival: Comments: Ryder- 23F-CP, N/V [facility] NURSING PROGon 2023 NURSING PROG HNO ID: [id number] Author: CATHERINE SHIPLEY RN Service: Nursing Author Type: Registered Nurse Type: Nursing Progress Note Filed: 2023 21:51 Note Text: Pt arrived to ED room 14 from triage. Per pt she was out drinking for her birthday and developed CP and anxiety. Pt was also vomiting. Pt called EMS due to CP being over her left side, no radiation. Pt states pain is 2/10. Pt states she drank about 6 shots prior to CP development. Denies any drug use. Pt axo x4, resp even and unlabored on RA. Vital signs obtained, bus driver/monitor applied. Call light within reach. [facility] CBC + DIFFon 03-28-2023 Baso # 0.00 x10EE3/UL Normal 0.00 - 0.10 [facility] Comment on above: Performed By: #### 2 [id number] #### [facility],[address] [place] [address] Basophils/100 WBC (Bld) 0.5 % Normal 0.0 - 2.0 [facility] Comment on above: Performed By: #### 2 16416 #### [facility],[address] [place] [address] CBC + DIFF Normal [facility] Comment on above: Result Comment: CBC- COMPLETE BLOOD COUNT Performed By: #### 2 92892 #### [facility],[address] [place] [address] EO # 0.10 x10EE3/UL Normal 0.00 - 0.50 [facility] Comment on above: Performed By: #### 2 66608 #### [facility],[address] [place] [address] Eosinophils/100 WBC (Bld) 1.1 % Normal 0.0 - 7.0 [facility] Comment on above: Performed By: #### 2 24106 #### [facility],[address] [place] [address] Erythrocyte distribution width (RBC) [Ratio] 14.2 % Normal 12.0 - 15.6 [facility] Comment on above: Performed By: #### 2 99859 #### [facility],[address] [place] [address] Hematocrit (Bld) [Volume fraction] 36.4 % Normal 34.0 - 46.0 [facility] Comment on above: Performed By: #### 2 20829 #### [facility],[address] [place] [address] Hemoglobin (Bld) [Mass/Vol] 11.9 g/dL Low 12.0 - 16.0 [facility] Comment on above: Performed By: #### 2 09572 #### [facility],[address],[place] [address] Lymph # 2.00 x10EE3/UL Normal 0.80 - 2.80 [facility] Comment on above: Performed By: #### 2 45740 #### [facility],[address] [place] [address] Lymphocytes/100 WBC (Bld) 29.7 % Normal 20.0 - 45.0 [facility] Comment on above: Performed By: #### 2 21090 #### [facility],[address] [place] [address] MANUAL DIFF N/A Normal [facility] Comment on above: Performed By: #### 2 04850 #### [facility],[address] [place] [address] MCH (RBC) [Entitic mass] 26 pg Low 27 - 33 [facility] Comment on above: Performed By: #### 2 48684 #### [place] [address] MCHC 33 X10 3 Normal 32 - 36 [facility] Comment on above: Performed By: #### 2 22837 #### [place] [address] MCV (RBC) [Entitic vol] 81 fL Normal 80 - 99 [facility] Comment on above: Performed By: #### 2 17205 #### [facility],[address] [place] [address] Glacier # 0.50 x10EE3/UL Normal 0.20 - 1.00 [facility] Comment on above: Performed By: #### 2 72418 #### [place] [address] MONOS % 8.1 % Normal 0.0 - 10.0 [facility] Comment on above: Performed By: #### 2 19413 #### [facility],[address] [place], [place] [id number] Morphology Ayden (Bld) [Interp] N/A Normal [facility] Comment on above: Performed By: #### 2 07172 #### [facility],[address] [place] [place] [address] Neut # 4.00 x10EE3/UL Normal 1.50 - 7.10 [facility] Comment on above: Performed By: #### 2 58486 #### [address] [address] Neutrophils/100 WBC (Bld) 60.6 % Normal 46.0 - 76.0 [facility] Comment on above: Performed By: #### 2 10996 #### [address] [address] PLATELET 263 x10EE3/UL Normal 150 - 450 [facility] Comment on above: Performed By: #### 2 74398 #### [address] [address] Platelet mean volume (Bld) [Entitic vol] 7.7 fL Normal 6.6 - 10.5 [facility] Comment on above: Result Comment: AUTO MATED DIFFERENTIAL Performed By: #### 2 59337 #### [facility],[address] [place] [address]95 RBC 4.52 x 10EE6/UL Normal 4.10 - 5.30 [facility] Comment on above: Performed By: #### 2 74191 #### [facility],[address] [place] [address] WBC 6.6 x 10EE3/UL Normal 4.5 - 10.8 [facility] Comment on above: Performed By: #### 2 60157 #### [address] [address] CHEST 2 VIEWSon 03-28-2023 CHEST 2 VIEWS [place] [address] Patient: EMI ASHLEY Phone#: : 2000 Age: 22 Gender: F Pt. Type: ER Account: [id number] Location: [id number] Ordering: PATRICK PAZ Exam Date: 03/28/2023/9:10 Family Phys: Charge Code: 289701 Physician: Garza Order #: [id number] Dose#: PROCEDURE: X-RAY CHEST 2 VIEWS COMPARISON: [facility], , CHEST 1 VIEW, 09/30/2022, 22:54. INDICATIONS: Chest pain. FINDINGS: LUNGS: Normal. No significant pulmonary parenchymal abnormalities. VASCULATURE: Normal. Unremarkable pulmonary vasculature. CARDIAC: Normal. No cardiac silhouette abnormality or cardiomegaly. MEDIASTINUM: Normal. No visible mass or adenopathy. PLEURA: Normal. No effusion or pleural thickening. BONES: Normal. No fracture or visible bony lesion. OTHER: Negative. CONCLUSION: 1. There is no evidence of acute abnormality. Dictated by: Ashley Galvan MD on 03/29/2023 at 7:59 Approved by: Ashley Glavan MD on 03/29/2023 at 8:00 Normal [facility] CMP with eGFRon 03-28-2023 AGE 22 years Normal [facility] Comment on above: Performed By: #### 2 00237 #### [facility],[address] [place], [place] [id number] Albumin [Mass/Vol] 3.4 g/dL Normal 3.4 - 5.0 [facility] Comment on above: Performed By: #### 2 78383 #### [facility],[address] [place] [address] Albumin/Globulin [Mass ratio] 1.0 {ratio} Normal 0.9 - 1.6 [facility] Comment on above: Performed By: #### 2 39587 #### [facility],[address] [place] [address] ALK PHOS 51 U/L Normal 46 - 116 [facility] Comment on above: Performed By: #### 2 10278 #### [facility],[address] [place] [address]269 ALT [Catalytic activity/Vol] 19 U/L Normal 14 - 59 [facility] Comment on above: Performed By: #### 2 69631 #### [facility],[address] [place] [address] Anion gap [Moles/Vol] 12 mmol/L Normal 10 - 20 [facility] Comment on above: Performed By: #### 2 48290 #### [facility],[address] [place] [address]451 AST [Catalytic activity/Vol] 18 U/L Normal 13 - 39 [facility] Comment on above: Performed By: #### 2 23457 #### [facility],[address] [place] [address] B/C RATIO 15 ratio Normal 0 - 30 [facility] Comment on above: Performed By: #### 2 92293 #### [facility],[address] [place] [address] Bilirubin [Mass/Vol] 0.5 mg/dL Normal 0.2 - 1.0 [facility] Comment on above: Performed By: #### 2 92740 #### [facility],[address] [place] [address] Calcium [Mass/Vol] 8.7 mg/dL Normal 8.5 - 10.1 [facility] Comment on above: Performed By: #### 2 98921 #### [facility],[address] [place] [address] Chloride [Moles/Vol] 102 mmol/L Normal 98 - 107 [facility] Comment on above: Performed By: #### 2 85848 #### [facility],[address] [place] [address] CMP with eGFR Normal [facility] Comment on above: Result Comment: COMP REHENSIVE METABOLIC PANEL Performed By: #### 2 34591 #### [facility],[address] [place] [address] CO2 [Moles/Vol] 26.5 mmol/L Normal 21.0 - 32.0 [facility] Comment on above: Performed By: #### 2 24076 #### [facility],[address] [place] [address] Creatinine [Mass/Vol] 0.89 mg/dL Normal 0.55 - 1.02 [facility] Comment on above: Performed By: #### 2 79201 #### [facility],[address] [place] [address] GFR/1.73 sq M.predicted among non-blacks MDRD (S/P/Bld) [Vol rate/Area] mL/min/{1.73_m2} Normal 60 - 999 [facility] Comment on above: Performed By: #### 2 45599 #### [facility],[address] [place] [address] Result Comment: ACCO RDING TO THE NATIONAL KIDNEY DISEASE EDUCATION PROGRAM(NKDE), A NORMAL eGFR IS A VALUE GREATER THAN OR EQUAL TO 60 ML/MIN/1.73 SQ METERS. CHRONIC KIDNEY DISEASE: <60mL/MIN/1.73 SQ METERS KIDNEY FAILURE: <15mL/MIN/1.73 SQ METERS THIS TEST SHOULD ONLY BE USED FOR PATIENTS 18 YEARS OF AGE AND OLDER. Globulin (S) [Mass/Vol] 3.5 g/dL Normal 1.5 - 3.8 [facility] Comment on above: Performed By: #### 2 05649 #### [facility],[address] [place] [address] Glucose [Mass/Vol] 93 mg/dL Normal 74 - 106 [facility] Comment on above: Performed By: #### 2 26059 #### [facility],[address] [place] [address] Potassium [Moles/Vol] 3.9 mmol/L Normal 3.5 - 5.1 [facility] Comment on above: Performed By: #### 2 35506 #### [facility],[address] [place] [address] Protein [Mass/Vol] 6.9 g/dL Normal 6.4 - 8.2 [facility] Comment on above: Performed By: #### 2 53039 #### [facility],[address] [place] [address]243 Sodium [Moles/Vol] 137 mmol/L Normal 136 - 145 [facility] Comment on above: Performed By: #### 2 66007 #### [facility],[address] [place] [address]852 Urea nitrogen [Mass/Vol] 13 mg/dL Normal 7 - 18 [facility] Comment on above: Performed By: #### 2 72304 #### [facility],[address] [place] [address] TROPONIN I, HIGH SENSITIVITY on 03-28-2023 HS TROPONIN <4.0 Normal 0.0 - 51.4 [facility] Comment on above: Performed By: #### 2 93780 #### [facility],[address] [place] [address] LABORATORYOrdered By: SYSTEM SYSTEM on 11-14-2022 TSH Qn 2.064 mIU/mL Invalid Interpretation Code 0.550 - 4.780 mIU/mL AH ADM SS .Auto Diffon 10-02-2022 Basophil, Absolute 0.0 10 3/mcL Normal 0.0-0.3 [facility] ([place]) Comment on above: Performed By: #### L IPID, A1C #### [address] [address] Basophils/100 WBC (Bld) 0.5 % Normal 0.0-2.5 A [facility] ([place]) Comment on above: Performed By: #### L IPID, A1C #### [address] [address] Eosinophil, Absolute 0.1 10 3/mcL Normal 0.0-0.7 [facility] [place] Comment on above: Performed By: #### L IPID, A1C #### [address] [address] Eosinophils/100 WBC (Bld) 1.2 % Normal 0.0-6.0 [facility] ([place]) Comment on above: Performed By: #### L IPID, A1C #### [address] [address] Lymphocyte, Absolute 2.8 10 3/mcL Normal 0.9-4.3 [facility] [place] Comment on above: Performed By: #### L IPID, A1C #### [address] [address] Lymphocytes/100 WBC (Bld) 37.3 % Normal 20.0-40.0 [facility] ([place]) Comment on above: Performed By: #### L IPID, A1C #### [address] [address] Monocyte, Absolute 0.6 10 3/mcL Normal 0.1-1.4 [facility] ([place]) Comment on above: Performed By: #### L IPID, A1C #### [address] [address] Monocytes/100 WBC (Bld) 7.7 % Normal 2.0-13.0 A [facility] ([place]) Comment on above: Performed By: #### L IPID, A1C #### [address] [address] Neutrophils/100 WBC (Bld) 53.3 % Normal 50.0-75.0 [facility] ([place]) Comment on above: Performed By: #### L IPID, A1C #### [address] [address] .GFRon 10-02-2022 GFR >60 Normal [facility] ([place]) Comment on above: Result Comment: GFR Population mean for , Non- Americans Ages 20-29 = 116 mL/min/1.73 sq.m. Ages 30-39 = 107 mL/min/1.73 sq.m. Ages 40-49 = 99 mL/min/1.73 sq.m. Ages 50-59 = 93 mL/min/1.73 sq.m. Ages 60-69 = 85 mL/min/1.73 sq.m. Ages 70+ = 75 mL/min/1.73 sq.m. Chronic Kidney Disease: Less than 60 mL/min/1.73 square meters End Stage Renal Disease: Less than 15 mL/min/1.73 square meters Performed By: #### L IPID, A1C #### [address] [address] GFR Non- >60 Normal [facility] ([place]) Comment on above: Result Comment: GFR Population mean for , Non- Americans Ages 20-29 = 116 mL/min/1.73 sq.m. Ages 30-39 = 107 mL/min/1.73 sq.m. Ages 40-49 = 99 mL/min/1.73 sq.m. Ages 50-59 = 93 mL/min/1.73 sq.m. Ages 60-69 = 85 mL/min/1.73 sq.m. Ages 70+ = 75 mL/min/1.73 sq.m. Chronic Kidney Disease: Less than 60 mL/min/1.73 square meters End Stage Renal Disease: Less than 15 mL/min/1.73 square meters Performed By: #### L IPID, A1C #### [address] [address] .NEUABSon 10-02-2022 Neutrophil, Absolute 4.0 10 3/mcL Normal 2.3-8.1 [facility] [place] Comment on above: Performed By: #### L IPID, A1C #### [address] [address] A1Con 10-02-2022 HbA1c (Bld) [Mass fraction] 5.4 % Normal 4.0-6.0 [facility] ([place]) Comment on above: Performed By: #### L IPID, A1C #### [address] [address] BMPon 10-02-2022 BUN/Creatinine Ratio 16.5 ratio Normal 10.0-22.0 [facility] ([place]) Comment on above: Performed By: #### L IPID, A1C #### [address] [address] Calcium [Mass/Vol] 9.2 mg/dL Normal 8.7-10.4 [facility] [place] Comment on above: Performed By: #### L IPID, A1C #### [address] [address] Chloride [Moles/Vol] 108 mmol/L Normal 98-110 [facility] ([place]) Comment on above: Performed By: #### L IPID, A1C #### [address] [address] CO2 [Moles/Vol] 23 mmol/L Normal 22-32 [facility] ([place]) Comment on above: Performed By: #### L IPID, A1C #### [address] [address] Creatinine [Mass/Vol] 0.79 mg/dL Normal 0.50-1.20 [facility] ([place]) Comment on above: Performed By: #### L IPID, A1C #### [address] [address] Electrolyte Balance 7.0 mEq/L Normal 4.0-15.0 [facility] ([place]) Comment on above: Performed By: #### L IPID, A1C #### [address] [address] Glucose [Mass/Vol] 78 mg/dL Normal 70-110 [facility] [place] Comment on above: Performed By: #### L IPID, A1C #### [address] [address] Potassium [Moles/Vol] 4.1 mmol/L Normal 3.5-5.0 [facility] ([place]) Comment on above: Performed By: #### L IPID, A1C #### [address] [address] Sodium [Moles/Vol] 138 mmol/L Normal 136-145 [facility] [place] Comment on above: Performed By: #### L IPID, A1C #### [address] [address] Urea nitrogen [Mass/Vol] 13.0 mg/dL Normal 8.0-22.0 [facility] ([place]) Comment on above: Performed By: #### L IPID, A1C #### [address] [address] CBCon 10-02-2022 Erythrocyte distribution width (RBC) [Ratio] 14.9 % Normal 11.5-15.5 [facility] ([place]) Comment on above: Performed By: #### L IPID, A1C #### [address] [address] Hematocrit (Bld) [Volume fraction] 37.7 % Normal 34.0-46.0 [facility] ([place]) Comment on above: Performed By: #### L IPID, A1C #### [place] [id number] Hgb 12.3 G/dL Normal 12.0-16.0 [facility] ([place] Comment on above: Performed By: #### L IPID, A1C #### [address] [address] MCH (RBC) [Entitic mass] 26.4 pg Low 27.0-33.0 [facility] ([place]) Comment on above: Performed By: #### L IPID, A1C #### [place] [id number] MCHC 32.5 G/dL Normal 32.0-36.0 [facility] ([place] Comment on above: Performed By: #### L IPID, A1C #### [address] [address] MCV (RBC) [Entitic vol] 81.3 fL Normal 80.0-99.0 A [facility] ([place] Comment on above: Performed By: #### L IPID, A1C #### [address] [address] Platelet 253 10 3/mcL Normal 150-450 [facility] ([place]) Comment on above: Performed By: #### L IPID, A1C #### [address] [address] Platelet mean volume (Bld) [Entitic vol] 8.3 fL Normal 6.6-10.5 [facility] ([place]) Comment on above: Performed By: #### L IPID, A1C #### [facility] [address] [place] [address] RBC 4.64 10 6/mcL Normal 4.10-5.30 [facility] ([place]) Comment on above: Performed By: #### L IPID, A1C #### [facility] [address] [place] [address] WBC 7.6 10 3/mcL Normal 4.5-10.8 [facility] ([place]) Comment on above: Performed By: #### L IPID, A1C #### [address] [address] LABORATORYOrdered By: SYSTEM SYSTEM on 10-02-2022 Basophils (Bld) [#/Vol] 0.0 103/mcL Invalid Interpretation Code 0.0 - 0.3 10^3/mcL Workflow SS Basophils/100 WBC (Bld) 0.5 % Invalid Interpretation Code 0.0 - 2.5 % Workflow SS Calcium [Mass/Vol] 9.2 mg/dL Invalid Interpretation Code 8.7 - 10.4 mg/dL ADM SS Chloride [Moles/Vol] 108 mmol/L Invalid Interpretation Code 98 - 110 mEq/L ADM SS CO2 [Moles/Vol] 23 mmol/L Invalid Interpretation Code 22 - 32 mEq/L ADM SS Creatinine [Mass/Vol] 0.79 mg/dL Invalid Interpretation Code 0.50 - 1.20 mg/dL ADM SS Electrolyte Balance 7.0 mEq/L Invalid Interpretation Code 4.0 - 15.0 mEq/L ADM SS Eosinophils (Bld) [#/Vol] 0.1 103/mcL Invalid Interpretation Code 0.0 - 0.7 10^3/mcL AH Workflow SS Eosinophils/100 WBC (Bld) 1.2 % Invalid Interpretation Code 0.0 - 6.0 % AH Workflow SS Erythrocyte distribution width (RBC) [Ratio] 14.9 % Invalid Interpretation Code 11.5 - 15.5 % Workflow SS GFR/1.73 sq M.predicted among blacks MDRD (S/P/Bld) [Vol rate/Area] ml/min/1.73sqm Invalid Interpretation Code Chemistry S GFR/1.73 sq M.predicted among non-blacks MDRD (S/P/Bld) [Vol rate/Area] ml/min/1.73sqm Invalid Interpretation Code Chemistry S Glucose [Mass/Vol] 78 mg/dL Invalid Interpretation Code 70 - 110 mg/dL ADM SS HbA1c (Bld) [Mass fraction] 5.4 % Invalid Interpretation Code 4.0 - 6.0 % Auto Chem SS Hematocrit (Bld) [Volume fraction] 37.7 % Invalid Interpretation Code 34.0 - 46.0 % Workflow SS Hemoglobin (Bld) [Mass/Vol] 12.3 G/dL Invalid Interpretation Code 12.0 - 16.0 G/dL AH Workflow SS Lymphocytes (Bld) [#/Vol] 2.8 103/mcL Invalid Interpretation Code 0.9 - 4.3 10^3/mcL AH Workflow SS Lymphocytes/100 WBC (Bld) 37.3 % Invalid Interpretation Code 20.0 - 40.0 % AH Workflow SS Magnesium [Mass/Vol] 1.8 mg/dL Invalid Interpretation Code 1.6 - 2.4 mg/dL ADM SS MCH (RBC) [Entitic mass] 26.4 pg Invalid Interpretation Code 27.0 - 33.0 pg AH Workflow SS MCHC 32.5 G/dL Invalid Interpretation Code 32.0 - 36.0 G/dL AH Workflow SS MCV (RBC) [Entitic vol] 81.3 fL Invalid Interpretation Code 80.0 - 99.0 fL AH Workflow SS Monocytes (Bld) [#/Vol] 0.6 103/mcL Invalid Interpretation Code 0.1 - 1.4 10^3/mcL AH Workflow SS Monocytes/100 WBC (Bld) 7.7 % Invalid Interpretation Code 2.0 - 13.0 % AH Workflow SS Neutrophils (Bld) [#/Vol] 4.0 103/mcL Invalid Interpretation Code 2.3 - 8.1 10^3/mcL AH Workflow SS Neutrophils/100 WBC (Bld) 53.3 % Invalid Interpretation Code 50.0 - 75.0 % Workflow SS Platelet mean volume (Bld) [Entitic vol] 8.3 fL Invalid Interpretation Code 6.6 - 10.5 fL AH Workflow SS Platelets (Bld) [#/Vol] 253 103/mcL Invalid Interpretation Code 150 - 450 10^3/mcL AH Workflow SS Potassium [Moles/Vol] 4.1 mmol/L Invalid Interpretation Code 3.5 - 5.0 mEq/L AH ADM SS RBC (Bld) [#/Vol] 4.64 106/mcL Invalid Interpretation Code 4.10 - 5.30 10^6/mcL AH Workflow SS Sodium [Moles/Vol] 138 mmol/L Invalid Interpretation Code 136 - 145 mEq/L AH ADM SS Urea nitrogen [Mass/Vol] 13.0 mg/dL Invalid Interpretation Code 8.0 - 22.0 mg/dL ADM SS Urea nitrogen/Creatinine [Mass ratio] 16.5 ratio Invalid Interpretation Code 10.0 - 22.0 ratio AH ADM SS WBC (Bld) [#/Vol] 7.6 103/mcL Invalid Interpretation Code 4.5 - 10.8 10^3/mcL AH Workflow SS LABORATORYOrdered By: Liberty watts on 10-02-2022 Cholesterol [Mass/Vol] 131 mg/dL Invalid Interpretation Code 50 - 199 mg/dL ADM SS Cholesterol in HDL [Mass/Vol] 34 mg/dL Invalid Interpretation Code 40 - 59 mg/dL ADM SS Cholesterol in LDL [Mass/Vol] 76 mg/dL Invalid Interpretation Code 0 - 129 mg/dL ADM SS Triglyceride [Mass/Vol] 106 mg/dL Invalid Interpretation Code 3 - 149 mg/dL ADM SS LIPIDon 10-02-2022 Cholesterol [Mass/Vol] 131 mg/dL Normal 50-199 [facility] [place] Comment on above: Result Comment: Chol esterol Reference Interval: Less than 200 Desirable 200-239 Borderline high risk 240 and above High risk Performed By: #### L IPID, A1C #### [address] [address] Cholesterol in HDL [Mass/Vol] 34 mg/dL Low 40-59 [facility] ([place]) Comment on above: Performed By: #### L IPID, A1C #### [place] [address] [place] [address] Cholesterol in LDL [Mass/Vol] 76 mg/dL Normal 0-129 [facility] ([place]) Comment on above: Performed By: #### L IPID, A1C #### [address], [place] [address] Triglyceride [Mass/Vol] 106 mg/dL Normal 3-149 A [facility] ([place]) Comment on above: Performed By: #### L IPID, A1C #### [address] [address] MGon 10-02-2022 Magnesium [Mass/Vol] 1.8 mg/dL Normal 1.6-2.4 [facility] ([place]) Comment on above: Performed By: #### L IPID, A1C #### [address] [address] MRI BRAIN W/ + W/O CONTRASTo n 10-02-2022 MRI BRAIN W/ + W/O CONTRAST ORIGINAL EXAMINATION: MR Brain with and without intravenous contrast TECHNIQUE: Multiplanar multi sequential MRI of the brain without and with intravenous contrast per standard protocol. COMPARISON: CT head 09/30/2022 HISTORY: ORDERING SYSTEM PROVIDED HISTORY: Reason for Exam: SYNCOPE FINDINGS: Parenchyma: No acute hemorrhage, infarction, mass, or pathologic enhancement is seen. The patricia-white matter junctions are maintained. There are no space occupying intra-axial masses or extra-axial fluid collections . No pathologic signal is identified in the white matter. There are no hemorrhagic blood products. Ventricles: No ventricular enlargement or ventricular effacement. Orbits: Normal. Major intracranial flow voids: Preserved. Paranasal sinuses: Clear. Mastoids and middle ears: Status post bilateral mastoid surgery. Moderate opacification of the partially resected left mastoid sinus. Small right mastoid effusion. Bones: Normal. Extracranial soft tissues: Normal. Additional comment: Thickened nasopharyngeal soft tissues measuring 10 mm in AP diameter without a focal lesion likely reflecting lymphoid hyperplasia. Mild hypertrophy of the bilateral inferior nasal turbinates. IMPRESSION: 1. No acute intracranial pathology. 2. Postsurgical changes of the bilateral mastoid sinuses with bilateral, left greater than right opacification. Interpreted by: Ermelinda Hernandez MD Preliminary Report By: Ermelinda Hernandez MD Electronically signed By Ermelinda Hernandez MD Dictated Date: 10/02/2022 11:12:58 AM Prelim Date: 10/02/2022 11:24:07 AM Sign Date: 10/02/2022 11:24:07 AM Ordering Provider: SHERRY CORTEZ [facility] ([place]) .Auto Diffon 10-01-2022 Basophil, Absolute 0.1 10 3/mcL Normal 0.0-0.3 [facility] ([place]) Comment on above: Performed By: #### A SHAHID, GFR, BMP, CBC, ADIFF #### [address] [address] Basophils/100 WBC (Bld) 0.8 % Normal 0.0-2.5 A [facility] ([place]) Comment on above: Performed By: #### A SHAHID, GFR, BMP, CBC, ADIFF #### [address] [address] Eosinophil, Absolute 0.1 10 3/mcL Normal 0.0-0.7 [facility] [place] Comment on above: Performed By: #### A SHAHID, GFR, BMP, CBC, ADIFF #### [address] [address] Eosinophils/100 WBC (Bld) 0.7 % Normal 0.0-6.0 [facility] ([place]) Comment on above: Performed By: #### A SHAHID, GFR, BMP, CBC, ADIFF #### [address] [address] Lymphocyte, Absolute 2.6 10 3/mcL Normal 0.9-4.3 [facility] [place] Comment on above: Performed By: #### A SHAHID, GFR, BMP, CBC, ADIFF #### [address] [address] Lymphocytes/100 WBC (Bld) 30.4 % Normal 20.0-40.0 [facility] ([place]) Comment on above: Performed By: #### A SHAHID, GFR, BMP, CBC, ADIFF #### [address] [address] Monocyte, Absolute 0.6 10 3/mcL Normal 0.1-1.4 [facility] ([place]) Comment on above: Performed By: #### A SHAHID, GFR, BMP, CBC, ADIFF #### [address] [address] Monocytes/100 WBC (Bld) 7.1 % Normal 2.0-13.0 A [facility] ([place]) Comment on above: Performed By: #### A SHAHID, GFR, BMP, CBC, ADIFF #### [address] [address] Neutrophils/100 WBC (Bld) 61.0 % Normal 50.0-75.0 [facility] ([place]) Comment on above: Performed By: #### A SHAHID, GFR, BMP, CBC, ADIFF #### [address] [address] .GFRon 10-01-2022 GFR >60 Normal [facility] ([place]) Comment on above: Result Comment: GFR Population mean for , Non- Americans Ages 20-29 = 116 mL/min/1.73 sq.m. Ages 30-39 = 107 mL/min/1.73 sq.m. Ages 40-49 = 99 mL/min/1.73 sq.m. Ages 50-59 = 93 mL/min/1.73 sq.m. Ages 60-69 = 85 mL/min/1.73 sq.m. Ages 70+ = 75 mL/min/1.73 sq.m. Chronic Kidney Disease: Less than 60 mL/min/1.73 square meters End Stage Renal Disease: Less than 15 mL/min/1.73 square meters Performed By: #### A SHAHID, GFR, BMP, CBC, ADIFF #### [address] [address] GFR Non- >60 Normal [facility] ([place]) Comment on above: Result Comment: GFR Population mean for , Non- Americans Ages 20-29 = 116 mL/min/1.73 sq.m. Ages 30-39 = 107 mL/min/1.73 sq.m. Ages 40-49 = 99 mL/min/1.73 sq.m. Ages 50-59 = 93 mL/min/1.73 sq.m. Ages 60-69 = 85 mL/min/1.73 sq.m. Ages 70+ = 75 mL/min/1.73 sq.m. Chronic Kidney Disease: Less than 60 mL/min/1.73 square meters End Stage Renal Disease: Less than 15 mL/min/1.73 square meters Performed By: #### A SHAHID, GFR, BMP, CBC, ADIFF #### [address] [address] .NEUABSon 10-01-2022 Neutrophil, Absolute 5.2 10 3/mcL Normal 2.3-8.1 [facility] [place] Comment on above: Performed By: #### A SHAHID, GFR, BMP, CBC, ADIFF #### [address] [address] BMPon 10-01-2022 BUN/Creatinine Ratio 18.9 ratio Normal 10.0-22.0 [facility] ([place]) Comment on above: Performed By: #### A SHAHID, GFR, BMP, CBC, ADIFF #### [address] [address] Calcium [Mass/Vol] 9.2 mg/dL Normal 8.7-10.4 [facility] [place] Comment on above: Performed By: #### A SHAHID, GFR, BMP, CBC, ADIFF #### [place] [address] Chloride [Moles/Vol] 107 mmol/L Normal 98-110 [facility] ([place]) Comment on above: Performed By: #### A SHAHID, GFR, BMP, CBC, ADIFF #### [address] [address] CO2 [Moles/Vol] 23 mmol/L Normal 22-32 [facility] ([place]) Comment on above: Performed By: #### A SHAHID, GFR, BMP, CBC, ADIFF #### [address] [address] Creatinine [Mass/Vol] 0.74 mg/dL Normal 0.50-1.20 [facility] ([place]) Comment on above: Performed By: #### A SHAHID, GFR, BMP, CBC, ADIFF #### [address] [address] Electrolyte Balance 8.0 mEq/L Normal 4.0-15.0 [facility] ([place]) Comment on above: Performed By: #### A SHAHID, GFR, BMP, CBC, ADIFF #### [address] [address] Glucose [Mass/Vol] 87 mg/dL Normal 70-110 [facility] [place] Comment on above: Performed By: #### A SHAHID, GFR, BMP, CBC, ADIFF #### [address] [address] Potassium [Moles/Vol] 4.3 mmol/L Normal 3.5-5.0 [facility] ([place]) Comment on above: Performed By: #### A SHAHID, GFR, BMP, CBC, ADIFF #### [address] [address] Sodium [Moles/Vol] 138 mmol/L Normal 136-145 [facility] [place] Comment on above: Performed By: #### A SHAHID, GFR, BMP, CBC, ADIFF #### [address] [address] Urea nitrogen [Mass/Vol] 14.0 mg/dL Normal 8.0-22.0 [facility] ([place]) Comment on above: Performed By: #### A SHAHID, GFR, BMP, CBC, ADIFF #### [address] [address] Bacteria Ur Culton 3 Bacteria identified Cx Nom (U) ORGANISM ID: 1 50,000-<100,000 CFU/ml Mixed microbiota No further workup. Mixed microbiota can be due to???urine???contami nation with skin bacteria at time of collection or presence of a long-term urinary catheter. If a new culture is needed, please consider re-education of the patient on proper midstream collection technique or straight catheterization for???urine???collec tion. Normal [facility] Comment on above: Performed By: #### 6 30-4 #### [facility] CLIA [id number] [address] [place] [address] [place] CBCon 10-01-2022 Erythrocyte distribution width (RBC) [Ratio] 15.0 % Normal 11.5-15.5 [facility] ([place]) Comment on above: Performed By: #### A SHAHID, GFR, BMP, CBC, ADIFF #### [place] [address] Hematocrit (Bld) [Volume fraction] 38.2 % Normal 34.0-46.0 [facility] ([place] Comment on above: Performed By: #### A SHAHID, GFR, BMP, CBC, ADIFF #### [place] [id number] Hgb 12.5 G/dL Normal 12.0-16.0 [facility] ([place] Comment on above: Performed By: #### A SHAHID, GFR, BMP, CBC, ADIFF #### [place] [id number] MCH (RBC) [Entitic mass] 27.1 pg Normal 27.0-33.0 [facility] ([place] Comment on above: Performed By: #### A SHAHID, GFR, BMP, CBC, ADIFF #### [place] [id number] MCHC 32.7 G/dL Normal 32.0-36.0 [facility] ([place] Comment on above: Performed By: #### A SHAHID, GFR, BMP, CBC, ADIFF #### [place] [address] MCV (RBC) [Entitic vol] 83.0 fL Normal 80.0-99.0 A [facility] ([place]) Comment on above: Performed By: #### A SHAHID, GFR, BMP, CBC, ADIFF #### [place] [id number] Platelet 314 10 3/mcL Normal 150-450 [facility] ([place] Comment on above: Performed By: #### A SHAHID, GFR, BMP, CBC, ADIFF #### [place] [id number] Platelet mean volume (Bld) [Entitic vol] 8.7 fL Normal 6.6-10.5 [facility] ([place] Comment on above: Performed By: #### A SHAHID, GFR, BMP, CBC, ADIFF #### [address] [address] RBC 4.60 10 6/mcL Normal 4.10-5.30 [facility] ([place] Comment on above: Performed By: #### A SHAHID, GFR, BMP, CBC, ADIFF #### [address] [address] WBC 8.6 10 3/mcL Normal 4.5-10.8 [facility] ([place] Comment on above: Performed By: #### A SHAHID, GFR, BMP, CBC, ADIFF #### [address] [address] DRUGSon 10-01-2022 Acetaminophen [Mass/Vol] ug/mL Low 10.0-20.0 [facility] ([place] Comment on above: Performed By: #### L IPID, A1C #### [place] [address] Drug Screen (s) Negative Normal Negative [facility] ([place] Comment on above: Performed By: #### L IPID, A1C #### [place] [address] Drug Screen Interp Serum shows no evidence of drugs routinely screened Invalid Interpretation Code [facility] ([place] Comment on above: Performed By: #### L IPID, A1C #### [place] [address] Ethanol Level <10.0 Normal [facility] ([place] Comment on above: Performed By: #### L IPID, A1C #### [place] [address] Salicylate Lvl (ds) <3.0 Low 10.0-25.0 [facility] ([place]) Comment on above: Performed By: #### L IPID, A1C #### [place] [address] Serum Drugs screened: See Below Normal [facility] ([place]) Comment on above: Result Comment: This drug screen is a presumptive screening only. No confirmation will be performed unless requested. Drugs included in the ER serum drug screen are: Threshold Ethanol 10.0 mg/dL Salicylate 2.0 mg/dl Acetaminophen 2.0 mcg/mL Tricyclic Antidepressants 300 ng/mL Testing has been performed FOR MEDICAL PURPOSES ONLY. Performed By: #### L IPID, A1C #### [place] [id number] TCA (s) Negative Normal [facility] ([place] Comment on above: Performed By: #### L IPID, A1C #### [place] [id number] Drug Don 10-01-2022 Drug Screen Urine Negative Normal [facility] ([place] Comment on above: Performed By: #### U A DRUGD #### [place] [address] Drug Screen Urine Interp Urine shows no evidence of drugs routinely screened. Invalid Interpretation Code [facility] ([place] Comment on above: Performed By: #### U A DRUGD #### [place] [address] Urine Drugs screened (DLRM): See Below Normal [facility] ([place] Comment on above: Result Comment: This drug screen is a presumptive screening only. No confirmation will be performed unless requested. Drugs screened include: Threshold Amphetamines/Methamphetamines 1,000 ng/mL Barbiturates 200 ng/mL Benzodiazepine metabolites 200 ng/mL Cannabinoids (THC metabolites) 50 ng/mL Benzoylecognine (Cocaine metab) 300 ng/mL Opiates 300 ng/mL Phencyclidine (PCP) 25 ng/mL Testing has been performed FOR MEDICAL PURPOSES ONLY. Performed By: #### U Ernie DRUGD #### [place] [address] HFPon 10-01-2022 Albumin Level 3.3 G/dL Normal 3.2-4.8 [facility] ([place] Comment on above: Performed By: #### L IPID, A1C #### [place] [id number] Albumin/Globulin [Mass ratio] 1.1 {ratio} Normal 0.9-1.6 [facility] ([place] Comment on above: Performed By: #### L IPID, A1C #### [facility] [address] [place], [place] [address] ALP [Catalytic activity/Vol] 50 U/L Normal 33-118 [facility] ([place]) Comment on above: Performed By: #### L IPID, A1C #### [address] [address] ALT [Catalytic activity/Vol] 17 U/L Normal 10-49 [facility] ([place] Comment on above: Performed By: #### L IPID, A1C #### [address] [address] AST [Catalytic activity/Vol] 18 U/L Normal 8-34 [facility] ([place]) Comment on above: Performed By: #### L IPID, A1C #### [place] [id number] Bili Direct 0.1 mg/dL Normal 0.0-0.4 [facility] ([place] Comment on above: Result Comment: Use of this assay is not recommended for patients undergoing treatment with eltrombopag due to the potential for falsely elevated results. Performed By: #### L IPID, A1C #### [place] [id number] Bili Indirect 0.2 mg/dL Normal 0.1-10.0 [facility] ([place] Comment on above: Performed By: #### L IPID, A1C #### [place] [id number] Bili Total 0.30 mg/dL Normal 0.20-1.20 [facility] ([place] Comment on above: Result Comment: Use of this assay is not recommended for patients undergoing treatment with eltrombopag due to the potential for falsely elevated results. Performed By: #### L IPID, A1C #### [address] [address] Globulin 3.1 G/dL Normal 1.5-3.8 [facility] ([place] Comment on above: Performed By: #### L IPID, A1C #### [place] [id number] Total Protein 6.4 G/dL Normal 5.7-8.2 [facility] ([place] Comment on above: Result Comment: No te - New Reference Range in effect 19 Performed By: #### L IPID, A1C #### [place] [address] LABORATORYOrdered By: SYSTEM SYSTEM on 10-01-2022 Basophils (Bld) [#/Vol] 0.1 103/mcL Invalid Interpretation Code 0.0 - 0.3 10^3/mcL Workflow SS Basophils/100 WBC (Bld) 0.8 % Invalid Interpretation Code 0.0 - 2.5 % AH Workflow SS Calcium [Mass/Vol] 9.2 mg/dL Invalid Interpretation Code 8.7 - 10.4 mg/dL ADM SS Chloride [Moles/Vol] 107 mmol/L Invalid Interpretation Code 98 - 110 mEq/L ADM SS CO2 [Moles/Vol] 23 mmol/L Invalid Interpretation Code 22 - 32 mEq/L ADM SS Creatinine [Mass/Vol] 0.74 mg/dL Invalid Interpretation Code 0.50 - 1.20 mg/dL ADM SS Electrolyte Balance 8.0 mEq/L Invalid Interpretation Code 4.0 - 15.0 mEq/L ADM SS Eosinophils (Bld) [#/Vol] 0.1 103/mcL Invalid Interpretation Code 0.0 - 0.7 10^3/mcL AH Workflow SS Eosinophils/100 WBC (Bld) 0.7 % Invalid Interpretation Code 0.0 - 6.0 % AH Workflow SS Erythrocyte distribution width (RBC) [Ratio] 15.0 % Invalid Interpretation Code 11.5 - 15.5 % AH Workflow SS GFR/1.73 sq M.predicted among blacks MDRD (S/P/Bld) [Vol rate/Area] ml/min/1.73sqm Invalid Interpretation Code Chemistry S GFR/1.73 sq M.predicted among non-blacks MDRD (S/P/Bld) [Vol rate/Area] ml/min/1.73sqm Invalid Interpretation Code Chemistry S Glucose [Mass/Vol] 87 mg/dL Invalid Interpretation Code 70 - 110 mg/dL ADM SS Hematocrit (Bld) [Volume fraction] 38.2 % Invalid Interpretation Code 34.0 - 46.0 % Workflow SS Hemoglobin (Bld) [Mass/Vol] 12.5 G/dL Invalid Interpretation Code 12.0 - 16.0 G/dL AH Workflow SS Lymphocytes (Bld) [#/Vol] 2.6 103/mcL Invalid Interpretation Code 0.9 - 4.3 10^3/mcL AH Workflow SS Lymphocytes/100 WBC (Bld) 30.4 % Invalid Interpretation Code 20.0 - 40.0 % AH Workflow SS MCH (RBC) [Entitic mass] 27.1 pg Invalid Interpretation Code 27.0 - 33.0 pg AH Workflow SS MCHC 32.7 G/dL Invalid Interpretation Code 32.0 - 36.0 G/dL AH Workflow SS MCV (RBC) [Entitic vol] 83.0 fL Invalid Interpretation Code 80.0 - 99.0 fL AH Workflow SS Monocytes (Bld) [#/Vol] 0.6 103/mcL Invalid Interpretation Code 0.1 - 1.4 10^3/mcL AH Workflow SS Monocytes/100 WBC (Bld) 7.1 % Invalid Interpretation Code 2.0 - 13.0 % AH Workflow SS Neutrophils (Bld) [#/Vol] 5.2 103/mcL Invalid Interpretation Code 2.3 - 8.1 10^3/mcL AH Workflow SS Neutrophils/100 WBC (Bld) 61.0 % Invalid Interpretation Code 50.0 - 75.0 % AH Workflow SS Platelet mean volume (Bld) [Entitic vol] 8.7 fL Invalid Interpretation Code 6.6 - 10.5 fL AH Workflow SS Platelets (Bld) [#/Vol] 314 103/mcL Invalid Interpretation Code 150 - 450 10^3/mcL AH Workflow SS Potassium [Moles/Vol] 4.3 mmol/L Invalid Interpretation Code 3.5 - 5.0 mEq/L AH ADM SS RBC (Bld) [#/Vol] 4.60 106/mcL Invalid Interpretation Code 4.10 - 5.30 10^6/mcL AH Workflow SS Sodium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 On/Re-applied bilat eral thigh high [facility] 10-01-2022 Functional Status Lunch Percent 40 [facility] 10-01-2022 Functional Status Living Situation Home i ndependently [facility] 10-01-2022 Functional Status Breakfast Percent 0 l [facility] 10-01-2022 [facility] Date Assessment Result Facility 09-29-2024 Cognitive function Level Of Cons ciousness Awake;Alert;Appropriate;Follow s Commands [facility] Work Phone: 10-02-2022 Mental Status Oriented x 4 [facility] 10-01-2022 [facility] 10-01-[facility]22 [facility] Clinical Notes 10-01-2022 to 01-23-2025 Note Date & Type Note Facility 01-23-2025 Progress note [facility] 01-09-2025 Discharge summary [facility] 01-09-2025 Radiology Diagnostic study note [facility] Imaging Services [address] [place], [place] [address] Transvaginal Non- MR#: [id number] Acct: [id number] Name: EMI ASHLEY Rep #: [id number] : 2000 F 24 From: Richie Redding MD PCP: Care Physician,No Primary Status: REG ER Study:Transvaginal Non- Date of Exam: 01/09/25 Exam# [id number] Ordering Dr: Juanito Canada MD PROCEDURE: TRANSVAGINAL NON- 01/09/2025 REASON FOR EXAM: RIGHT PELVIC PAIN TECHNIQUE: TRANSVAGINAL NON- COMPARISON: Prior study dated September 19, 2020. FINDINGS: Measurements: Uterus: 8.7 cm x 4.7 cm x 3.8 cm with a volume of 81.53 mL. There is a 1.4 cm x1.7 cm 2.3 cm right uterine fibroid. Endometrial Thickness: 4 mm. It is hyperechoic. Right Ovary: 2.9 cm x 2.9 cm x 2.4 cm with a volume of 18.38 mL. Left Ovary: 2.9 cm x 2.9 cm x 2.4 cm with a volume of 10.39 mL. Uterus: Fibroid uterus. Endometrium: Unremarkable. Right ovary: Normal size and echotexture. Left ovary: Normal size and echotexture. Other: No large pelvic mass identified. US/Transvaginal Non- IMPRESSION: 1.4 cm 1.7 cm 2.3 cm fibroid in the right side of the uterus. Reading Location: [place] [address] CC: Dr. Luke Canada MD; No Primary Care Physician ~ Events Assistant: Signed [facility] 01-09-2025 Discharge summary Note Date/Time January 09, 2025 3:23pm [facility] Medical Records Department [address] [place] [id number] Emergency Department Summary 01/09/25 MR#: [id number] Acct: [id number] Name: EMI ASHLEY Rep #:[id number] : 2000 24 From: Luke Canada MD PCP: Care Physician,No Primary Status :REG ER Location: ED HPI HPI - Female History of Present Illness Chief Complaint: Female C/O Informant: patient Narrative Narrative: 24-year-old female states she started her menstrual cycle earlier this morning, she has been having much more pain and unusually to the right and much heavier bleeding than typical. Her cycles are usually regular and this is the expected time. She states 2 or 3 years ago she was diagnosed with an ovarian cyst on theright side that was not intervened on operatively or pharmaceutically. She has never had any abdominal surgeries. She is not currently sexually active and denies having any recent vaginal discharge, urinary symptoms, or other illness or injury. She denies any fevers or chills recently. [facility] Medical History Ovarian cyst Complex regional pain syndrome Home Medications ?Medication ?Instructions ?Recorded ?Last Taken ?Type ascorbate calcium (vitamin C) 500 500 mg PO DAILY 06/2509/29/24 History mg tablet cyanocobalamin (vitamin B-12) 500 500 mcg PO DAILY 06/2509/29/24 History mcg tablet (B-12 DOTS) alek (Zingiber officinalis) 500 500 mg PO DAILY 06/2509/29/24 History mg capsule norethindrone acetate 5 mg tablet See Rx Instructions .Route 01/09/25 Unknown Rx .COMPLEX #30 tabs Allergy/AdvReac Type Severity Reaction Status Date / Time No Known Allergies Allergy Verified 01/09/25 12:00 Family History Grandfather Heart disease Diabetes Mother Asthma Surgical History History of placement of ear tubes Social History household members: family and friend(s) current occupational status: employed current occupation: [employer] history of recent travel: No sexually active: Yes Smoking Status: Former smoker alcohol intake: never substance use type: does not use diet: low carbohydrate what type of physical activity do you participate in: none seatbelt use: always do you feel safe at home: Yes additional social history: single ROS ROS ED Constitutional Constitutional ED: Denies chills or fever(s) Eyes Eyes: Denies change in vision or diplopia ENT ENT ED: Denies rhinorrhea or sore throat Cardiovascular Cardiovascular: Denies chest pain, palpitations or syncope Respiratory/Chest Respiratory/Chest: Denies cough or dyspnea Gastrointestinal Gastrointestinal: Reports abdominal pain and nausea; Denies diarrhea or vomiting Genitourinary Genitourinary ED: Reports vaginal bleeding; Denies dysuria, hematuria or vaginaldischarge Musculoskeletal Musculoskeletal: Denies back pain or neck pain Integumentary Denies abscess or rash Neurologic Neurologic: Denies headache(s), paresthesias or weakness Psychiatric Psychiatric: Denies anxiety or suicidal thoughts EXAM Physical Exam Const Vital Signs: 01/09/25 11:59 01/09/25 13:59 01/09/25 15:00 Temperature 96.9 F L Temperature Source Temporal Pulse Rate 84 82 83 Respiratory Rate 14 18 16 Blood Pressure 127/72 H 155/78 H 155/78 H Blood Pressure Mean 90 103 103 Pulse Ox 98 100 100 Oxygen Delivery Method Room Air Room Air Positive well nourished and well developed General Appearance ED: well developed and NAD HEENT Reports moist mucous membranes normocephalic and atraumatic Eyes PERRL and EOMs intact bilaterally Neck full ROM and supple Resp normal respiratory effort and clear to auscultation bilaterally Cardio regular rate, regular rhythm and no murmurs GI non-tender and non-distended Auscultation: normoactive bowel sounds Palpation: soft Speculum Exam - Vagina: vaginal bleeding; Negative for vaginal discharge Back/Spine no CVA tenderness General Back: other FROM Extremity normal to inspection General Extremety ED: Negative for edema, pulses abnormal or tenderness General Extremity: Negative for edema or pulses abnormal Neuro oriented x3, CN's II-XII intact bilaterally and no sensory deficits noted Sensorium / Orientation: awake and alert Motor Exam: strength 5/5 throughout Skin no rashes or lesions noted and no wounds MDM MDM MDM Narrative Medical decision making narrative: Blood counts look stable, is negative ruling out ectopic, and her urinalysis shows contamination from blood but otherwise no acute infection. We obtained a transvaginal ultrasound to evaluate for TOA, torsion. There is no acute ovarian abnormality, it is noted by radiology that she has a fibroid that is on the right. This would be unusual in a 24-year-old, it is possible that this is adenomyosis, but given her vaginal bleeding and the fact it is on the right side with her pain I believe it could be related to her symptoms. I am going to place her on Aygestin and have her follow-up with gynecology on-call since she does not have a court bailiff or sheriff. Lab Data Attestation: I reviewed the patient's lab results. Labs: Laboratory Results - last 24 hr 01/09/25 01/09/25 12:53 14:51 WBC 12.3 H RBC 4.61 Hgb 12.1 Hct 37.4 MCV 81.1 MCH 26.2 L MCHC 32.4 RDW Std Deviation 39.2 RDW Coeff of Rigoberto 13.3 Plt Count 297 MPV 9.7 Immature Gran % (Auto) 0.500 Neut % (Auto) 74.5 H Lymph % (Auto) 18.5 L [place] % (Auto) 5.7 Eos % (Auto) 0.6 Baso % (Auto) 0.2 Absolute Neuts (auto) 9.2 H Absolute Lymphs (auto) 2.28 Nucleated RBC % 0 Serum , Qual NEGATIVE Urine Color Yellow Urine Clarity Clear Urine pH 6.0 Ur Specific Risco 1.020 Urine Protein 30 H Urine Glucose (UA) Normal Urine Ketones 15 H Urine Occult Blood 250 H Urine Nitrite Negative Urine Bilirubin Negative Urine Urobilinogen 1 H Ur Leukocyte Esterase 25 H Urine RBC 0 SEEN Urine WBC 0 SEEN Ur Squamous Epith Cells 0-5 SEEN Urine Bacteria 0 SEEN Urine Mucus 0 SEEN Radiography Diagnostic Testing: Clinical Impression(s) from Imaging Studies Transvaginal US 01/09/25 12:31 IMPRESSION: 1.4 cm 1.7 cm 2.3 cm fibroid in the right side of the uterus. Reading Location: [place] [address] I reviewed transvaginal ultrasound imaging and results which I agree with. Discharge Plan Triage Chief Complaint: Female C/O ED Provider: Luke Canada Dx/Rx/DC Orders Clinical Impression: Menorrhagia with regular cycle, Uterine fibroid, Pelvic pain Instructions: ED Uterine Fibroids Prescriptions: New norethindrone acetate 5 mg tablet See Rx Instructions .ROUTE .COMPLEX Qty: 30 0RF Rx Instructions: 1 tab po bid until bleeding stops; then 1 tab po daily until finished No Action alek (Zingiber officinalis) 500 mg capsule 500 mg PO DAILY ascorbate calcium (vitamin C) 500 mg tablet 500 mg PO DAILY cyanocobalamin (vitamin B-12) [B-12 DOTS] 500 mcg tablet 500 mcg PO DAILY Primary Care Provider: Care Physician,No Primary Referrals: Johanna Recinos MD [Med Staff - Active Staff] - As soon as possible (call for appt;tell them you were referred from the ER) Print Language: Nepali Disposition Disposition: Home, Self Care What to do if you have Problems For any increased pain, shortness of breath, bleeding, nausea or vomiting, chestpain, or any unexpected problems, contact your Primary Care Provider. Call [facility] ([phone]) or report to the closest Emergency Room. Call 911 if necessary. 01/09/25 1523 <Electronically signed by Luke Canada MD> Cosigner Signature (if applicable): CC: Dr. Johanna Recinos MD; No Primary Care Physician ~ Signed [facility] Work Phone: 1(638) 356-592006-03-2025 Evaluation note* Diagnosis Onset Date Resolution Status Admit Date Neuropraxia of left upper extremity acute November 01, 2024 1 :44pm Contusion of left index finger inact cheri November 01, 2024 1:44pm [facility] Work Phone: 1(791) 349-558206-03-2025 Evaluation note* Diagnosis Onset Date Resolution Status Admit Date Neuropraxia of left upper extremity acute November 01, 2024 1 :44pm Contusion of left index finger inact cheri November 01, 2024 1:44pm Neuropraxia of left upper extremity acute November 08, 2024 2:24pm Contusion of left index finger inact cheri November 08, 2024 2:24pm [facility] Work Phone: 1(748) 501-102806-03-2025 Evaluation note* Diagnosis Onset Date Resolution Status Admit Date Neuropraxia of left upper extremity acute November 01, 2024 1 :44pm Contusion of left index finger inact cheri November 01, 2024 1:44pm Neuropraxia of left upper extremity acute November 08, 2024 2:24pm Contusion of left index finger inact cheri November 08, 2024 2:24pm Neuropraxia of left upper extremity acute November 22, 2024 1:55pm Contusion of left index finger inact cheri November 22, 2024 1:55pm [facility] Work Phone: 1(640) 946-983706-03-2025 Evaluation note* Diagnosis Onset Date Resolution Status Admit Date Neuropraxia of left upper extremity acute November 01, 2024 1 :44pm Contusion of left index finger inact cheri November 01, 2024 1:44pm Neuropraxia of left upper extremity acute November 08, 2024 2:24pm Contusion of left index finger inact cheri November 08, 2024 2:24pm Neuropraxia of left upper extremity acute November 22, 2024 1:55pm Contusion of left index finger inact cheri November 22, 2024 1:55pm Complex regional pain syndrome acute December 20, 2024 1:16pm Flexor tendon rupture of hand acute December 20, 2024 1:16pm Neuropraxia of left upper extremity acute December 20, 2024 1:16pm [facility] Work Phone: 1(737) 952-744006-03-2025 Evaluation note* Diagnosis Onset Date Resolution Status Admit Date Neuropraxia of left upper extremity acute November 01, 2024 1 :44pm Contusion of left index finger inact cheri November 01, 2024 1:44pm Neuropraxia of left upper extremity acute November 08, 2024 2:24pm Contusion of left index finger inact cheri November 08, 2024 2:24pm Neuropraxia of left upper extremity acute November 22, 2024 1:55pm Contusion of left index finger inact cheri November 22, 2024 1:55pm Complex regional pain syndrome acute December 20, 2024 1:16pm Neuropraxia of left upper extremity acute December 20, 2024 1:16pm Flexor tendon rupture of hand inacti ve December 20, 2024 1:16pm Complex regional pain syndrome acute December 27, 2024 12:58pm Neuropraxia of left upper extremity acute December 27, 2024 12:58pm [facility] Work Phone: 1(837) 245-958206-03-2025 Evaluation note* Diagnosis Onset Date Resolution Status Admit Date Neuropraxia of left upper extremity acute November 01, 2024 1 :44pm Contusion of left index finger inactive November 01, 2024 1 :44pm Neuropraxia of left upper extremity acute November 08, 2024 2:24pm Contusion of left index finger inactive November 08, 2024 2:24pm Neuropraxia of left upper extremity acute November 22, 2024 1:55pm Contusion of left index finger inactive November 22, 2024 1:55pm Complex regional pain syndrome acute December 20, 2024 1:16pm Neuropraxia of left upper extremity acute December 20, 2024 1:16pm Flexor tendon rupture of hand inacti ve December 20, 2024 1:16pm Complex regional pain syndrome acute December 27, 2024 12:58pm Neuropraxia of left upper extremity acute December 27, 2024 12:58pm Menorrhagia acute January 23, 2025 7:28am Right lower quadrant abdominal pain acute January 23 7:28am Uterine fibroid noneactive January 232024 7:28am [facility] Work Phone: [phone]) 537-352805-30-2025 Radiology Diagnostic study note [facility] Imaging Services [address] [place] [address] Finger(s) Min 2 Views MR#: [id number] Acct: [id number] Name: EMI ASHLEY Rep #: [id number] : 2000 F 24 From: Sarah Quispe MD PCP: Care Physician,No Primary Status: REG ER Study:Finger(s) Min 2 Views Date of Exam: 10/28/24 Exam# [id number] Ordering Dr: Ben Garber DO PROCEDURE: FINGER(S) MIN 2 VIEWS 10/28/2024 REASON FOR EXAM: INJURY/PAIN TECHNIQUE: Three views of the left 1st digit COMPARISON: None RAD/Finger(s) Min 2 Views IMPRESSION: No acute fracture or dislocations. Mild soft tissue edema. No radiographic foreign body. Reading Location: [id number] CC: Dr. Ben Garber DO; No Primary Care Physician ~ Events Assistant: Signed [facility]01-26-2024 NoteHNO ID: [id number] Author: CECILIA NORIEGA RT(R) Service: Radiology Author Type: Technologist Type: Progress Notes Filed: 2023 22:52 Note Text: Radiology Service Progress Note PATIENT NAME: Emi Ashley DATE OF SERVICE: 2023 TIME: 10:52 PM PATIENT IDENTITY VERIFICATION COMPLETED USING TWO (2) IDENTIFIERS: Name and Date of confirmed by patient verbally. FALL SCREENING: Has the patient had 2 falls in the last year or 1 fall with injury or currently using an Ambulatory Assistive Device (Walker, Cane, Wheelchair, Crutches, etc.)? Emergency Room Patient: Screened in ED PATIENT GENDER DATA: Female. status: : No status: NO. PATIENT RELEVANT IMPLANT DATA REVIEWED: Not Applicable PATIENT PRESENTS WITH AN IMPLANTABLE OR ATTACHED CIRCULATION ASSISTANT: No RADIOLOGY DEPARTMENT: General X-ray: Exam(s) Completed: Chest X-Ray PERIPHERAL IV DATA: Not applicable SIGNED BY: RT Carlos(R) 2023 10:52 [id number] Cardiology Consult note Date of Service 10/02/2022 Reason for Consultation Syncope Referring Physician History of Present Illness Ms. Ashley, a 22-year-old female with no significant past medical history presented with complaints of sudden loss of consciousness. Patient was sitting in a chair and was attending a meeting during which she felt little dizzy and lightheadedness following which she had brief loss of consciousness episode. Patient had urinary incontinence during the episode. Patient had a similar syncope in the past twice but was not evaluated. No complaints of chest pain, palpitation. No complaints of abdomen pain, dysuria. Complains of fever chills rigors. Review of Systems Complete ROS negative except as documented in HPI. Physical Exam Vitals and Measurements T: 36.7 C (Oral) TMIN: 36.6 C (Oral) TMAX: 37.6 C (Oral) HR: 75(Monitored) RR: 18 BP: 114/71 BP: 108/78(Sitting) BP: 121/81(Standing) BP: 121/69(Supine) SpO2: 98% Weight Dosing Weight: 98.4 kg (10/01/22) Dosing Weight: 98.4 kg (10/01/22) GA: Alert and oriented x3, no acute distress Abd: Not distended HEENT: NCAT, sclera anicteric, oral mucosa moist Pulmonary: No tachypnea or use of accessory respiratory muscles. MSK: No gross deformities Cardiovascular: Not tachycardic Skin: Warm and dry Neuro: Spontaneous movement of all extremities, cranial nerves II through XII grossly normal Psychiatric: Thought content, associations, attention are all normal. Lab Results 10/02 05:45 WBC: 7.6 Hgb: 12.3 Hct: 37.7 Platelet: 253 Neutrophil %: 53.3 Glucose Level: 78 Sodium Level: 138 Potassium Level: 4.1 BUN: 13.0 Creatinine Lvl (s): 0.79 10/01 14:20 WBC: 8.6 Hgb: 12.5 Hct: 38.2 Platelet: 314 Neutrophil %: 61.0 Glucose Level: 87 Sodium Level: 138 Potassium Level: 4.3 BUN: 14.0 Creatinine Lvl (s): 0.74 Assessment/Plan Orders: Complete EKG Comments: Entered secondary to EKG order. Electrocardiogram Syncope under evaluation To rule out seizure disorder Patient is a 22-year-old female presented with complaints of LOC brief duration with some prodromalsymptoms. Patient also had associated urinary incontinence during the episode. No history of witnessed seizure activity. Patient has significant seizure family history EKG has been ordered. As per neurologist MRI brain has been ordered and is pending for results. 2D echocardiogram has been ordered on outpatient basis along with a tilt table test. Patient is advised to follow-up with highway construction inspector in the office. Patient is also getting a 30-day event monitor on discharge. Patient is being discharged today as per hospitalist. We will follow-up on outpatient basis. Kindly look at addendum by attending highway construction inspector for further information This dictation was performed using voice recognition software and may include grammatical and/or spelling errors. Problem List/Past Medical History Ongoing No qualifying data Historical No qualifying data Procedure/Surgical History No qualifying data available. Medications Inpatient acetaminophen, 650 mg= 2 tab(s), Oral, q6hWA, PRN Ativan, 2 mg= 1 mL, IV Push, q4h, PRN melatonin, 3 mg= 1 tab(s), Oral, qHS, PRN melatonin, 3 mg= 1 tab(s), Oral, qHS, PRN Zofran, 4 mg= 2 mL, IV Push, q4h, PRN Zofran ODT, 4 mg= 1 tab(s), Oral, q6h, PRN Home No active home medications Allergies NKA Immunizations No qualifying data available. Digitally Signed by MO BUSTOS MD on 10/02/2022 04:55 PM [id number] Discharge instructions Patient Education 10/02/2022 17:01:17 Syncope Syncope Syncope refers to a condition in which a person temporarily loses consciousness. Syncope may also be called fainting or passing out. It is caused by a sudden decrease in blood flow to the brain. Eventhough most causes of syncope are not dangerous, syncope can be a sign of a serious medical problem. Your health care provider may do tests to find the reason why you are having syncope. Signs that you may be about to faint include: Feeling dizzy or light-headed. Feeling nauseous. Seeing all white or all black in your field of vision. Having cold, clammy skin. If you faint, get medical help right away. Call your local emergency services (911 in the [place] Donot drive yourself to the hospital. Follow these instructions at home: Pay attention to any changes in your symptoms. Take these actions to stay safe and to help relieve your symptoms: Lifestyle Do not drive, use machinery, or play sports until your health care provider says it is okay. Do not drink alcohol. Do not use any products that contain nicotine or tobacco, such as cigarettes and e-cigarettes. If you need help quitting, ask your health care provider. Drink enough fluid to keep your urine pale yellow. General instructions Take ibeg-ste-lhmpbdz and prescription medicines only as told by your health care provider. If you are taking blood pressure or heart medicine, get up slowly and take several minutes to sit and then stand. This can reduce dizziness or light-headedness. Have someone stay with you until you feel stable. If you start to feel like you might faint, lie down right away and raise (elevate) your feet above the level of your heart. Breathe deeply and steadily. Wait until all the symptoms have passed. Keep all follow-up visits as told by your health care provider. This is important. Get help right away if you: Have a severe headache. Faint once or repeatedly. Have pain in your chest, abdomen, or back. Have a very fast or irregular heartbeat (palpitations). Have pain when you breathe. Are bleeding from your mouth or rectum, or you have black or tarry stool. Have a seizure. Are confused. Have trouble walking. Have severe weakness. Have vision problems. These symptoms may represent a serious problem that is an emergency. Do not wait to see if your symptoms will go away. Get medical help right away. Call your local emergency services (911 in the [place] Do not drive yourself to the hospital. Summary Syncope refers to a condition in which a person temporarily loses consciousness. It is caused by a sudden decrease in blood flow to the brain. Signs that you may be about to faint include dizziness, feeling light-headed, feeling nauseous, sudden vision changes, or cold, clammy skin. Although most causes of syncope are not dangerous, syncope can be a sign of a serious medical problem. If you faint, get medical help right away. This information is not intended to replace advice given to you by your health care provider. Make sure you discuss any questions you have with your health care provider. Document Released: 05/18/2006 Document Revised: 04/30/2018 Document Reviewed: 04/26/2018 [employer] Patient Education 2020 [employer]. 10/02/2022 17:01:07 Transient Ischemic Attack Transient Ischemic Attack A transient ischemic attack (TIA) is a warning stroke that causes stroke-like symptoms that then go away quickly. The symptoms of a TIA come on suddenly, and they last less than 24 hours. Unlike a stroke, a TIA does not cause permanent damage to the brain. It is important to know the symptoms of a TIA and what to do. Seek medical care right away, even if your symptoms go away. Having a TIA is a sign that you are at higher risk for a permanent stroke. Lifestyle changes and medical treatments can help prevent a stroke. What are the causes? This condition is caused by a temporary blockage in an artery in the head or neck. The blockage does not allow the brain to get the blood supply it needs and can cause various symptoms. The blockage can be caused by: Fatty buildup in an artery in the head or neck (atherosclerosis). A blood clot. Tearing of an artery (dissection). Inflammation of an artery (vasculitis). Sometimes the cause is not known. What increases the risk? Certain factors may make you more likely to develop this condition. Some of these factors are things that you can change, such as: Obesity. Using products that contain nicotine or tobacco, such as cigarettes and e-cigarettes. Taking oral control, especially if you also use tobacco. Lack of physical inactivity. Excessive use of alcohol. Use of drugs, especially cocaine and methamphetamine. Other risk factors include: High blood pressure (hypertension). High cholesterol. Diabetes mellitus. Heart disease (coronary artery disease). Atrial fibrillation. Being or . Being over the age of 60. Being male. Family history of stroke. Previous history of blood clots, stroke, TIA, or heart attack. Sickle cell disease. Being a woman with a history of preeclampsia. Migraine headache. Sleep apnea. Chronic inflammatory diseases, such as rheumatoid arthritis or lupus. Blood clotting disorders (hypercoagulable state). What are the signs or symptoms? Symptoms of this condition are the same as those of a stroke, but they are temporary. The symptoms develop suddenly, and they go away quickly, usually within minutes to hours. Symptoms may include sudden: Weakness or numbness in your face, arm, or leg, especially on one side of your body. Trouble walking or difficulty moving your arms or legs. Trouble speaking, understanding speech, or both (aphasia). Vision changes in one or both eyes. These include double vision, blurred vision, or loss of vision. Dizziness. Confusion. Loss of balance or coordination. Nausea and vomiting. Severe headache with no known cause. If possible, make note of the exact time that you last felt like your normal self and what time your symptoms started. Tell your health care provider. How is this diagnosed? This condition may be diagnosed based on: Your symptoms and medical history. A physical exam. Imaging tests, usually a CT or MRI scan of the brain. Blood tests. You may also have other tests, including: Electrocardiogram (ECG). Echocardiogram. Carotid ultrasound. A scan of the brain circulation (CT angiogram or MRI angiogram). Continuous heart monitoring. How is this treated? The goal of treatment is to reduce the risk for a subsequent stroke. Treatment may include stroke prevention therapies such as: Changes to diet or lifestyle to decrease your risk. Lifestyle changes may include exercising and stopping smoking. Medicines to thin the blood (antiplatelets or anticoagulants). Blood pressure medicines. Medicines to reduce cholesterol. Treating other health conditions, such as diabetes or atrial fibrillation. If testing shows that you have narrowing in the arteries to your brain, your health care provider may recommend a procedure, such as: Carotid endarterectomy. This is a surgery to remove the blockage from your artery. Carotid angioplasty and stenting. This is a procedure to open or widen an artery in the neck using a metal mesh tube (stent). The stent helps keep the artery open by supporting the artery liu. Follow these instructions at home: Medicines Take lytv-spv-dltydgy and prescription medicines only as told by your health care provider. If you were told to take a medicine to thin your blood, such as aspirin or an anticoagulant, take it exactly as told by your health care provider. ?Taking too much blood-thinning medicine can cause bleeding. ?If you do not take enough blood-thinning medicine, you will not have the protection that you need against a stroke and other problems. Eating and drinking Eat 5 or more servings of fruits and vegetables each day. Follow instructions from your health care provider about diet. You may need to follow a certain nutrition plan to help manage risk factors for stroke, such as high blood pressure, high cholesterol, diabetes, or obesity. This may include: ?Eating a low-fat, low-salt diet. ?Including a lot of fiber in your diet. ?Limiting the amount of carbohydrates and sugar in your diet. Limit alcohol intake to no more than 1 drink a day for non women and 2 drinks a day for men. One drink equals 12 oz of beer, 5 oz of wine, or 1 oz of hard liquor. General instructions Maintain a healthy weight. Stay physically active. Try to get at least 30 minutes of exercise on most or all days. Find out if you have sleep apnea, and seek treatment if needed. Do not use any products that contain nicotine or tobacco, such as cigarettes and e-cigarettes. If you need help quitting, ask your health care provider. Do not abuse drugs. Keep all follow-up visits as told by your health care provider. This is important. Where to find more information [place] [employer] Association: www.strokeassociation.org National Stroke Association: www.stroke.org Get help right away if: You have chest pain or an irregular heartbeat. You have any symptoms of stroke. The acronym BEFAST is an easy way to remember the main warning signs of stroke. ?B - Balance problems. Signs include dizziness, sudden trouble walking, or loss of balance. ?E - Eye problems. This includes trouble seeing or a sudden change in vision. ?F - Face changes. This includes sudden weakness or numbness of the face, or the face or eyelid drooping to one side. ?A - Arm weakness or numbness. This happens suddenly and usually on one side of the body. ?S - Speech problems. This includes trouble speaking or trouble understanding speech. ?T - Time. Time to call 911 or seek emergency care. Do not wait to see if symptoms will go away. Make note of the time your symptoms started. Other signs of stroke may include: ?A sudden, severe headache with no known cause. ?Nausea or vomiting. ?Seizure. These symptoms may represent a serious problem that is an emergency. Do not wait to see if the symptoms will go away. Get medical help right away. Call your local emergency services (911 in the [place] Do not drive yourself to the hospital. Summary A TIA happens when an artery in the head or neck is blocked, leading to stroke- like symptoms that then go away quickly. The blockage clears before there is any permanent brain damage. A TIA is a medical emergency and requires immediate medical attention. Symptoms of this condition are the same as those of a stroke, but they are temporary. The symptoms usually develop suddenly, and they go away quickly, usually within minutes to hours. Having a TIA means that you are at high risk of a stroke in the near future. Treatment may include medicines to thin the blood as well as medicines, diet changes, and lifestylechanges to manage conditions that increase the risk of another TIA or a stroke. This information is not intended to replace advice given to you by your health care provider. Make sure you discuss any questions you have with your health care provider. Document Released: 02/25/2006 Document Revised: 11/23/2018 Document Reviewed: 06/30/2017 [employer] Patient Education 2020 [employer] Follow Up Care 10/01/2022 04:46:05 With:JOHANNA JAIN MD Address: [address] [facility] [place] [address]- [phone] When: Unknown Comments:4 weeks [facility] Address: When: Unknown Comments:4 weeks With:STEVEN [facility]APHA[facility] Address: [address] [facility] [address] [place] [address]- When:1-2 days Comments:Please call the office to schedule a follow up appointment [facility] 05-04-2023 Note Discharge Instructions Thank you for allowing [facility] to assist you with your healthcare needs. The following is importantdischarge information regarding your hospital visit. Your Care Team DENNIS JOSÉ MD What to do next Follow Up Appointments Follow Up with JOHANNA JAIN MD When Why: 4 weeks Where: [address] [facility] [place] [address] [phone] [facility] Why: [facility] Where: Follow Up with DENNIS JOSÉ MD When Within 1-2 days Why: Please call the office to schedule a follow up appointment Where: [address] [place] [address]- The Following Activity and Diet Have Been Ordered for You Discharge Activity - Ordered -- Resume your pre-hospitalization activity, 10/02/22 16:46:00 EDT Discharge Diet - Ordered -- Type of Diet: Regular, 10/02/22 16:46:00 EDT The Following Equipment Has Been Ordered for You No qualifying data available. The Following Treatments Have Been Ordered for You Discharge Labs No qualifying data available. Discharge Radiology No qualifying data available. Other Therapies Discharge Event Monitor Instructions - Ordered -- 10/01/22 13:22:13 EDT, You have been ordered mobile outpatient telemetry. You should receive a device in the mail with further instructions. If you have not received a device within 7 days after discharge, please call [facility] at [phone]. Post Acute Orders No qualifying data available. Someone Will Contact You Regarding These Home Health Referrals No home referrals have been ordered for you. No one will call you. Allergies NKA Medications Please ask your primary doctor or pharmacist before taking any other medication not listed, including over the counter drugs, herbal medications, vitamins and or supplements as they may interact withyour home medications. Please take this list to your next doctor s visit. Bring all medications you take, including over the counter medications, herbals and other supplements with you to your doctor s visit. Patients and families are reminded to discard old lists and to update any records with all medication providers or retail pharmacies. Education Materials Syncope Syncope refers to a condition in which a person temporarily loses consciousness. Syncope may also be called fainting or passing out. It is caused by a sudden decrease in blood flow to the brain. Eventhough most causes of syncope are not dangerous, syncope can be a sign of a serious medical problem. Your health care provider may do tests to find the reason why you are having syncope. Signs that you may be about to faint include: Feeling dizzy or light-headed. Feeling nauseous. Seeing all white or all black in your field of vision. Having cold, clammy skin. If you faint, get medical help right away. Call your local emergency services (302 in the [place] Donot drive yourself to the hospital. Follow these instructions at home: Pay attention to any changes in your symptoms. Take these actions to stay safe and to help relieve your symptoms: Lifestyle Do not drive, use machinery, or play sports until your health care provider says it is okay. Do not drink alcohol. Do not use any products that contain nicotine or tobacco, such as cigarettes and e-cigarettes. If you need help quitting, ask your health care provider. Drink enough fluid to keep your urine pale yellow. General instructions Take dvfa-fyw-phrafpi and prescription medicines only as told by your health care provider. If you are taking blood pressure or heart medicine, get up slowly and take several minutes to sit and then stand. This can reduce dizziness or light-headedness. Have someone stay with you until you feel stable. If you start to feel like you might faint, lie down right away and raise (elevate) your feet above the level of your heart. Breathe deeply and steadily. Wait until all the symptoms have passed. Keep all follow-up visits as told by your health care provider. This is important. Get help right away if you: Have a severe headache. Faint once or repeatedly. Have pain in your chest, abdomen, or back. Have a very fast or irregular heartbeat (palpitations). Have pain when you breathe. Are bleeding from your mouth or rectum, or you have black or tarry stool. Have a seizure. Are confused. Have trouble walking. Have severe weakness. Have vision problems. These symptoms may represent a serious problem that is an emergency. Do not wait to see if your symptoms will go away. Get medical help right away. Call your local emergency services (307 in the [place] Do not drive yourself to the hospital. Summary Syncope refers to a condition in which a person temporarily loses consciousness. It is caused by a sudden decrease in blood flow to the brain. Signs that you may be about to faint include dizziness, feeling light-headed, feeling nauseous, sudden vision changes, or cold, clammy skin. Although most causes of syncope are not dangerous, syncope can be a sign of a serious medical problem. If you faint, get medical help right away. This information is not intended to replace advice given to you by your health care provider. Make sure you discuss any questions you have with your health care provider. Document Released: 05/18/2006 Document Revised: 04/30/2018 Document Reviewed: 04/26/2018 [employer] Patient Education 2020 [employer] Transient Ischemic Attack A transient ischemic attack (TIA) is a warning stroke that causes stroke-like symptoms that then go away quickly. The symptoms of a TIA come on suddenly, and they last less than 24 hours. Unlike a stroke, a TIA does not cause permanent damage to the brain. It is important to know the symptoms of a TIA and what to do. Seek medical care right away, even if your symptoms go away. Having a TIA is a sign that you are at higher risk for a permanent stroke. Lifestyle changes and medical treatments can help prevent a stroke. What are the causes? This condition is caused by a temporary blockage in an artery in the head or neck. The blockage does not allow the brain to get the blood supply it needs and can cause various symptoms. The blockage can be caused by: Fatty buildup in an artery in the head or neck (atherosclerosis). A blood clot. Tearing of an artery (dissection). Inflammation of an artery (vasculitis). Sometimes the cause is not known. What increases the risk? Certain factors may make you more likely to develop this condition. Some of these factors are things that you can change, such as: Obesity. Using products that contain nicotine or tobacco, such as cigarettes and e-cigarettes. Taking oral control, especially if you also use tobacco. Lack of physical inactivity. Excessive use of alcohol. Use of drugs, especially cocaine and methamphetamine. Other risk factors include: High blood pressure (hypertension). High cholesterol. Diabetes mellitus. Heart disease (coronary artery disease). Atrial fibrillation. Being or . Being over the age of 60. Being male. Family history of stroke. Previous history of blood clots, stroke, TIA, or heart attack. Sickle cell disease. Being a woman with a history of preeclampsia. Migraine headache. Sleep apnea. Chronic inflammatory diseases, such as rheumatoid arthritis or lupus. Blood clotting disorders (hypercoagulable state). What are the signs or symptoms? Symptoms of this condition are the same as those of a stroke, but they are temporary. The symptoms develop suddenly, and they go away quickly, usually within minutes to hours. Symptoms may include sudden: Weakness or numbness in your face, arm, or leg, especially on one side of your body. Trouble walking or difficulty moving your arms or legs. Trouble speaking, understanding speech, or both (aphasia). Vision changes in one or both eyes. These include double vision, blurred vision, or loss of vision. Dizziness. Confusion. Loss of balance or coordination. Nausea and vomiting. Severe headache with no known cause. If possible, make note of the exact time that you last felt like your normal self and what time your symptoms started. Tell your health care provider. How is this diagnosed? This condition may be diagnosed based on: Your symptoms and medical history. A physical exam. Imaging tests, usually a CT or MRI scan of the brain. Blood tests. You may also have other tests, including: Electrocardiogram (ECG). Echocardiogram. Carotid ultrasound. A scan of the brain circulation (CT angiogram or MRI angiogram). Continuous heart monitoring. How is this treated? The goal of treatment is to reduce the risk for a subsequent stroke. Treatment may include stroke prevention therapies such as: Changes to diet or lifestyle to decrease your risk. Lifestyle changes may include exercising and stopping smoking. Medicines to thin the blood (antiplatelets or anticoagulants). Blood pressure medicines. Medicines to reduce cholesterol. Treating other health conditions, such as diabetes or atrial fibrillation. If testing shows that you have narrowing in the arteries to your brain, your health care provider may recommend a procedure, such as: Carotid endarterectomy. This is a surgery to remove the blockage from your artery. Carotid angioplasty and stenting. This is a procedure to open or widen an artery in the neck using a metal mesh tube (stent). The stent helps keep the artery open by supporting the artery liu. Follow these instructions at home: Medicines Take [id number]-hydrpyz and prescription medicines only as told by your health care provider. If you were told to take a medicine to thin your blood, such as aspirin or an anticoagulant, take it exactly as told by your health care provider. ? Taking too much blood-thinning medicine can cause bleeding. ? If you do not take enough blood-thinning medicine, you will not have the protection that you need against a stroke and other problems. Eating and drinking Eat 5 or more servings of fruits and vegetables each day. Follow instructions from your health care provider about diet. You may need to follow a certain nutrition plan to help manage risk factors for stroke, such as high blood pressure, high cholesterol, diabetes, or obesity. This may include: ? Eating a low-fat, low-salt diet. ? Including a lot of fiber in your diet. ? Limiting the amount of carbohydrates and sugar in your diet. Limit alcohol intake to no more than 1 drink a day for non women and 2 drinks a day for men. One drink equals 12 oz of beer, 5 oz of wine, or 1 oz of hard liquor. General instructions Maintain a healthy weight. Stay physically active. Try to get at least 30 minutes of exercise on most or all days. Find out if you have sleep apnea, and seek treatment if needed. Do not use any products that contain nicotine or tobacco, such as cigarettes and e-cigarettes. If you need help quitting, ask your health care provider. Do not abuse drugs. Keep all follow-up visits as told by your health care provider. This is important. Where to find more information [place] [employer] Association: www.strokeassociation.org National Stroke Association: www.stroke.org Get help right away if: You have chest pain or an irregular heartbeat. You have any symptoms of stroke. The acronym BEFAST is an easy way to remember the main warning signs of stroke. ? B - Balance problems. Signs include dizziness, sudden trouble walking, or loss of balance. ? E - Eye problems. This includes trouble seeing or a sudden change in vision. ? F - Face changes. This includes sudden weakness or numbness of the face, or the face or eyelid drooping to one side. ? A - Arm weakness or numbness. This happens suddenly and usually on one side of the body. ? S - Speech problems. This includes trouble speaking or trouble understanding speech. ? T - Time. Time to call 911 or seek emergency care. Do not wait to see if symptoms will go away. Make note of the time your symptoms started. Other signs of stroke may include: ? A sudden, severe headache with no known cause. ? Nausea or vomiting. ? Seizure. These symptoms may represent a serious problem that is an emergency. Do not wait to see if the symptoms will go away. Get medical help right away. Call your local emergency services (911 in the [place] Do not drive yourself to the hospital. Summary A TIA happens when an artery in the head or neck is blocked, leading to stroke- like symptoms that then go away quickly. The blockage clears before there is any permanent brain damage. A TIA is a medical emergency and requires immediate medical attention. Symptoms of this condition are the same as those of a stroke, but they are temporary. The symptoms usually develop suddenly, and they go away quickly, usually within minutes to hours. Having a TIA means that you are at high risk of a stroke in the near future. Treatment may include medicines to thin the blood as well as medicines, diet changes, and lifestylechanges to manage conditions that increase the risk of another TIA or a stroke. This information is not intended to replace advice given to you by your health care provider. Make sure you discuss any questions you have with your health care provider. Document Released: 02/25/2006 Document Revised: 11/23/2018 Document Reviewed: 06/30/2017 [employer] Patient Education 2020 [employer]. Additional Information VACCINATE! IT SAVES LIVES! Members of the community who have not yet received the COVID-19 vaccine and would like to receive it can visit one of [facility] vaccine clinics. There are many vaccine clinic locations within the [facility]. For locations and available times, please visit https://gettheshot.coronavirus.[place].gov/. It is important to note that some COVID mobile vaccine clinics are held outdoors and may be canceled in rainy or stormy conditions. To learn more about pediatric vaccinations (ages 5-11), we invite you to visit the [facility] webpage. https://www.[facility].org/pages/3549-Ymqtp-Outggpiqxlq-Nnyrfwkyiz-Ouwjr-Don stions.htmlTo learn more about the COVID-19 vaccine, we invite you to visit the CDC website for a list of frequently asked questions. https://www.cdc.gov/coronavirus/2019-ncov/vaccines/faq.html [facility] Patient Portal Access Instructions: Stay connected with your healthcare team and access your personal medical information anytime with the [facility] Patient Portal.If you would like a full copy of your medical records, please contact the [facility] Medical Records Department, Thursday through Thursday between 8a.m. and 4:30p.m. Please follow the directions below to access the portal: 1.Access the email account you provided upon registration to the [facility].2.Look for an invitation email from [facility].3.Open the email and access the invitation link: Accept Invitation to [facility]4.Fill in the required cruz to create your account. Sign into www.[employer] with your username and password that you created in the above steps to stay up to date. You can then view a summary of results, a summary of your visits, and the ability to download your summaries to your computer or send the information securely to a physician. Remember that your healthcare information is confidential, so carefully consider who you will allow to register on the [facility] Patient Portal for access to your information. You can also access the [facility] Patient Portal on the [employer] mable. Simply click on Health Records under [employer] and then click on the [facility] logo. HOW TO SAFELY DISPOSE OF PRESCRIPTION MEDICATIONS Please use one of the following methods to safely dispose of your unused medications. 1.Use a drug disposal kit: the drug disposal pouch allows you to safely discard your old and unuseddrugs. Ask your nurse to give you one when you are discharged.2.Visit a local take-back location: Many local pharmacies and police departments have programs that collect old and unwanted prescriptiondrugs. Call your local pharmacy or go to http://bit.Curiously/7X4Sv4u to find one close to you.3.Make use of household items: Use cat litter or old coffee grounds to dispose medications if other options arenot available. Mix your drugs with these household products, seal them in an airtight container andthrow it into the garbage. Call [facility]: [phone] to be sure your drugs can be disposed of in this way. Some medicines may require a different approach.4.Never flush your medications down the toilet. IF YOU HAVE BEEN PRESCRIBED AN OPIOID FOR PAIN If you have been prescribed an opioid (such as hydrocodone, oxycodone or morphine), it is critical to understand the possible side effects and risks of opioid pain medications. Even when taken as directed, opioids can have several side effects including: Tolerance, meaning you might need to take more of a medication for the same pain relief. Nausea, vomiting and/or constipation. Sleepiness, dizziness, dry mouth, confusion, depression or itching. Physical dependence, meaning you have withdrawal symptoms when a medication is stopped, can develop within a few days. KNOW YOUR RESPONSIBILITIES It is important to know exactly how much and how often to take the opioid pain medications you are prescribed. Never take opioids in higher amounts or more often than prescribed. Do not combine opioids with alcohol or other drugs that cause drowsiness, such as benzodiazepines, also known as benzos, including diazepam and alprazolam, muscle relaxants or sleep aids. Never sell or share prescription opioids. This is illegal. Store opioids in a secure place and out of reach of others (including children, family, friends and visitors). The last page of this document has been signed and retained as a CHART COPY. Signatures Patient Education Materials Syncope Transient Ischemic Attack Medication Leaflets My discharge plan and instructions have been reviewed and explained to me and I,EMI ASHLEY understand my current condition and have read and understand these discharge instructions. I have received a written copy of the plan/instructions. If I have questions, I am aware that I should contact my doctor. 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 Being that she urinated on herself neurology was consulted to work-up for seizures.Tox screen was negative. CTA chest/abdomen/pelvis was negative for acute pathology. EEG was normal.Neurocare follow-up in 4 weeks. Cardiology was consulted for further work-up of syncope, which theyfeel this was a vasovagal syncope and have cleared the patient for discharge with outpatient echocardiogram, tilt table test and 30-day CardioNet monitor ordered. MRI ruled out stroke but did show bilateral postsurgical mastoid changes with some fluid but she denies any symptoms of infection includi ng sinus drainage or fever and states she has a follow-up with her ENT outpatient. She currently has no symptoms at this time denies chest pain, dyspnea, nausea, vomiting, diarrhea, headache and dizziness. It is felt that she is hemodynamically stable for discharge home today with close follow-up with her PCP and specialist. Allergies NKA Consults Consult to Physician - Ordered -- 10/01/22 5:26:00 EDT, IRINA SAL MD, Routine, 3 episodes of loss of consciousness withslow return to awareness. Urinary incontinence. FHx of seizures. Consult to Physician - Ordered -- 10/01/22 16:59:00 EDT, JOHANNA JAIN MD, Routine, syncope Imaging Results and Diagnostics MRI Brain w/ + w/o Contrast Result Date: October 02, 2022 Verified By: ERMELINDA HERNANDEZ MD CLINICAL STATEMENT: IMPRESSION: 1. No acute intracranial pathology.2. Postsurgical changes of the bilateral mastoid sinuses with bilateral, leftgreater than right opacification. Objective Vitals and Measurements T: 36.8 C (Oral) TMIN: 36.6 C (Oral) TMAX: 37.1 C (Oral) HR: 73(Monitored) RR: 16 BP: 112/70 BP: 108/78(Sitting) BP: 121/81(Standing) BP: 121/69(Supine) SpO2: 95% Weight Dosing Weight: 98.4 kg (10/01/22) Dosing Weight: 98.4 kg (10/01/22) General: Alert, no acute distress Heart: RRR, S1/S2. No murmurs. Lungs: CTA B/L, unlabored Abdomen: Soft, nontender, nondistended, + bowel sounds Extremities: No edema, +2 dorsalis pedis pulses bilaterally. Code Status Code Status - Ordered -- 10/01/22 5:25:00 EDT, Full Code, Constant Order Admission Date 10/01/2022 Discharge Date 10/02/2022 Follow Up Follow Up with JOHANNA JAIN MD When Why: 4 weeks Where: [address] [facility] [place] [address]- [phone] [facility] When Why: 4 weeks Where: Follow Up with [facility] When Within 1-2 days Why: Please call the office to schedule a follow up appointment Where: [address] [place] [address]- Follow Up Labs/Studies Discharge Labs No Follow-up Labs Discharge Diet Discharge Diet - Ordered -- Type of Diet: Regular, 10/02/22 16:46:00 EDT Discharge Activity Discharge Activity - Ordered -- Resume your pre-hospitalization activity, 10/02/22 16:46:00 EDT Condition on Discharge stable Readmission Risk/Palliative Score No qualifying data available. Discharge Disposition Home Time Spent 35 minutes Digitally Signed by LUCIANO CROWLEY DO on 10/02/2022 04:58 PM [facility] [id number] Note ORIGINAL EXAMINATION: MR Brain with and without intravenous contrast TECHNIQUE: Multiplanar multi sequential MRI of the brain without and with intravenous contrast per standard protocol. COMPARISON: CT head 09/30/2022 HISTORY: ORDERING SYSTEM PROVIDED HISTORY: Reason for Exam: SYNCOPE FINDINGS: Parenchyma: No acute hemorrhage, infarction, mass, or pathologic enhancement is seen. The patricia-white matter junctions are maintained. There are no space occupying intra-axial masses or extra-axial fluid collections . No pathologic signal is identified in the white matter. There are no hemorrhagic blood products. Ventricles: No ventricular enlargement or ventricular effacement. Orbits: Normal. Major intracranial flow voids: Preserved. Paranasal sinuses: Clear. Mastoids and middle ears: Status post bilateral mastoid surgery. Moderate opacification of the partially resected left mastoid sinus. Small right mastoid effusion. Bones: Normal. Extracranial soft tissues: Normal. Additional comment: Thickened nasopharyngeal soft tissues measuring 10 mm in AP diameter without a focal lesion likely reflecting lymphoid hyperplasia. Mild hypertrophy of the bilateral inferior nasal turbinates. IMPRESSION: 1. No acute intracranial pathology. 2. Postsurgical changes of the bilateral mastoid sinuses with bilateral, left greater than right opacification. Interpreted by: rEmelinda Hernandez MD Preliminary Report By: Ermelinda Hernandez MD Electronically signed By Ermelinda Hernandez MD Dictated Date: 10/02/2022 11:12:58 AM Prelim Date: 10/02/2022 11:24:07 AM Sign Date: 10/02/2022 11:24:07 AM Ordering Provider: [facility]05-04-2023 Note ORIGINAL EXAMINATION: MR Brain with and without intravenous contrast TECHNIQUE: Multiplanar multi sequential MRI of the brain without and with intravenous contrast per standard protocol. COMPARISON: CT head 09/30/2022 HISTORY: ORDERING SYSTEM PROVIDED HISTORY: Reason for Exam: SYNCOPE FINDINGS: Parenchyma: No acute hemorrhage, infarction, mass, or pathologic enhancement is seen. The patricia-white matter junctions are maintained. There are no space occupying intra-axial masses or extra-axial fluid collections . No pathologic signal is identified in the white matter. There are no hemorrhagic blood products. Ventricles: No ventricular enlargement or ventricular effacement. Orbits: Normal. Major intracranial flow voids: Preserved. Paranasal sinuses: Clear. Mastoids and middle ears: Status post bilateral mastoid surgery. Moderate opacification of the partially resected left mastoid sinus. Small right mastoid effusion. Bones: Normal. Extracranial soft tissues: Normal. Additional comment: Thickened nasopharyngeal soft tissues measuring 10 mm in AP diameter without a focal lesion likely reflecting lymphoid hyperplasia. Mild hypertrophy of the bilateral inferior nasal turbinates. IMPRESSION: 1. No acute intracranial pathology. 2. Postsurgical changes of the bilateral mastoid sinuses with bilateral, left greater than right opacification. Interpreted by: Ermelinda Hernandez MD Preliminary Report By: Ermelinda Hernandez MD Electronically signed By Ermelinda Hernandez MD Dictated Date: 10/02/2022 11:12:58 AM Prelim Date: 10/02/2022 11:24:07 AM Sign Date: 10/02/2022 11:24:07 AM Ordering Provider: [facility]05-04-2023 Cardiology Consult note Date of Service 10/02/2022 Reason for Consultation Syncope Referring Physician History of Present Illness Ms. Ashley, a 22-year-old female with no significant past medical history presented with complaints of sudden loss of consciousness. Patient was sitting in a chair and was attending a meeting during which she felt little dizzy and lightheadedness following which she had brief loss of consciousness episode. Patient had urinary incontinence during the episode. Patient had a similar syncope in the past twice but was not evaluated. No complaints of chest pain, palpitation. No complaints of abdomen pain, dysuria. Complains of fever chills rigors. Review of Systems Complete ROS negative except as documented in HPI. Physical Exam Vitals and Measurements T: 36.7 C (Oral) TMIN: 36.6 C (Oral) TMAX: 37.6 C (Oral) HR: 75(Monitored) RR: 18 BP: 114/71 BP: 108/78(Sitting) BP: 121/81(Standing) BP: 121/69(Supine) SpO2: 98% Weight Dosing Weight: 98.4 kg (10/01/22) Dosing Weight: 98.4 kg (10/01/22) GA: Alert and oriented x3, no acute distress Abd: Not distended HEENT: NCAT, sclera anicteric, oral mucosa moist Pulmonary: No tachypnea or use of accessory respiratory muscles. MSK: No gross deformities Cardiovascular: Not tachycardic Skin: Warm and dry Neuro: Spontaneous movement of all extremities, cranial nerves II through XII grossly normal Psychiatric: Thought content, associations, attention are all normal. Lab Results 10/02 05:45 WBC: 7.6 Hgb: 12.3 Hct: 37.7 Platelet: 253 Neutrophil %: 53.3 Glucose Level: 78 Sodium Level: 138 Potassium Level: 4.1 BUN: 13.0 Creatinine Lvl (s): 0.79 10/01 14:20 WBC: 8.6 Hgb: 12.5 Hct: 38.2 Platelet: 314 Neutrophil %: 61.0 Glucose Level: 87 Sodium Level: 138 Potassium Level: 4.3 BUN: 14.0 Creatinine Lvl (s): 0.74 Assessment/Plan Orders: Complete EKG Comments: Entered secondary to EKG order. Electrocardiogram Syncope under evaluation To rule out seizure disorder Patient is a 22-year-old female presented with complaints of LOC brief duration with some prodromalsymptoms. Patient also had associated urinary incontinence during the episode. No history of witnessed seizure activity. Patient has significant seizure family history EKG has been ordered. As per neurologist MRI brain has been ordered and is pending for results. 2D echocardiogram has been ordered on outpatient basis along with a tilt table test. Patient is advised to follow-up with highway construction inspector in the office. Patient is also getting a 30-day event monitor on discharge. Patient is being discharged today as per hospitalist. We will follow-up on outpatient basis. Kindly look at addendum by attending highway construction inspector for further information This dictation was performed using voice recognition software and may include grammatical and/or spelling errors. Problem List/Past Medical History Ongoing No qualifying data Historical No qualifying data Procedure/Surgical History No qualifying data available. Medications Inpatient acetaminophen, 650 mg= 2 tab(s), Oral, q6hWA, PRN Ativan, 2 mg= 1 mL, IV Push, q4h, PRN melatonin, 3 mg= 1 tab(s), Oral, qHS, PRN melatonin, 3 mg= 1 tab(s), Oral, qHS, PRN Zofran, 4 mg= 2 mL, IV Push, q4h, PRN Zofran ODT, 4 mg= 1 tab(s), Oral, q6h, PRN Home No active home medications Allergies NKA Immunizations No qualifying data available. Digitally Signed by MO BUSTOS MD on 10/02/2022 04:55 PM [facility] [id number] Neurology Progress note Date of Service October 02, 2022 Chief Complaint Syncope Subjective Patient seen and examined today. No family present at current. She is alert, laying in bed. She states that she is sitting up in the chair earlier this morning when she got dizzy, lightheaded. She states she laid back down in bed and symptoms improved. She reports she is eating and drinking withoutdifficulty. No further syncopal events since admission. No new onset dizziness, double vision, blurry vision. No new onset numbness, tingling, weakness. No neck pain, fever, chills. She does complainof a headache. She rates it a 6 out of 10, aching sensation in the frontal area. No other associated symptoms. No history of headaches. No acute events overnight. Objective Vitals and Measurements T: 36.7 C (Oral) TMIN: 36.6 C (Oral) TMAX: 37.6 C (Oral) HR: 75(Monitored) RR: 18 BP: 114/71 BP: 108/78(Sitting) BP: 121/81(Standing) BP: 121/69(Supine) SpO2: 98% Intake and Output 7AM Yesterday to 7AM Today Intake and Output (Last 24 hours) Intake Output Urine Voided 300.00 Stool Count 0.00 Urine Count 3.00 Total Summary Total Intake 0.00 Total Output 300.00 Fluid Balance -300.00 Physical Exam General Examination: conscious, alert, oriented, AoA x3 HEENT: normocephalic, pupils BERL Lungs: Bilateral air entry present Neuro: Conscious, alert, oriented AoA x3, CN II-XII normal, no Nystagmus, EOMI, pupils BERL, No facial sensory loss, no facial asymmetry, tongue protrudes in midline, no uvula deviation, normal shoulder shrug, Power 5/5 B/L UE and LE, tone normal all 4 extremities, No tremors, No pronator drift, Reflexes + B/S/T/K/A, Plantars B/L flexor, No cerebellar signs, Romberg s deferred, No sensory loss tolight touch, gait deferred, No frontal release signs. No involuntary movements, No NR, No Kernig s sign, No Brudzinski s sign Weight Dosing Weight: 98.4 kg (10/01/22) Dosing Weight: 98.4 kg (10/01/22) Medications Medications (6) Active Scheduled: (0) Continuous: (0) PRN: (6) acetaminophen 325 mg Tablet 650 mg 2 tab(s), Oral, q6hWA LORAZEPam 2 mg/mL 1 mL vial 2 mg 1 mL, IV Push, q4h melatonin 3 mg tablet 3 mg 1 tab(s), Oral, qHS melatonin 3 mg tablet 3 mg 1 tab(s), Oral, qHS ondansetron 2 mg/ 1 mL 2 mL INJ 4 mg 2 mL, IV Push, q4h ondansetron 4 mg DIS tablet 4 mg 1 tab(s), Oral, q6h Lab Results 10/02 05:45 WBC: 7.6 Hgb: 12.3 Hct: 37.7 Platelet: 253 Neutrophil %: 53.3 Glucose Level: 78 Sodium Level: 138 Potassium Level: 4.1 BUN: 13.0 Creatinine Lvl (s): 0.79 10/01 14:20 WBC: 8.6 Hgb: 12.5 Hct: 38.2 Platelet: 314 Neutrophil %: 61.0 Glucose Level: 87 Sodium Level: 138 Potassium Level: 4.3 BUN: 14.0 Creatinine Lvl (s): 0.74 Imaging Results and Diagnostics None available Assessment/Plan Syncope ? cause- R/O Cardiac etiologies Plan: -MRI brain w/o contrast - no acute findings -EEG normal -Labs reviewed -Orthostatic vitals negative. -Would encourage thorough cardiac workup- defer to primary. -Would consider TTE, 30 day event recorder, Tilt table test No clinical indication for AEDs at present. -GI/DVT prophylaxis -PT/OT/ST -Fall precautions -Further medical management per medical team -Follow up with Neurology in 4 weeks as outpatient -Please call with questions if any. -Thank you for allowing us to participate in patients care and management. -All questions were answered at Present, neuro will sign off. Please call/page with questions/concerns. Case d/w Dr. Cortez, collaborating physician, who is in agreement with plan. Time Spent 35 minutes, of which >50% was spent counseling the patient and/or coordinating care. 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 Being that she urinated on herself neurology was consulted to work-up for seizures. Tox screen was negative. CTA chest/abdomen/pelvis was negative for acute pathology.EEG was normal but awaiting MRI brain per neurology. Will need 30-day CardioNet monitor at discharge and a tilt table test to be arranged by PCP outpatient. Neurocare follow-up in 4 weeks. We will consult cardiology for further work-up of syncope. History and physical of my partner were reviewed from this morning and I am in agreement. Will follow. Digitally Signed by LUCIANO CROWLEY DO on 10/01/2022 04:58 PM [id number] Evaluation + Plan noteExtracted from: Title:History and Physical Author:GISSEL NICHOLSON MD Date:10/01/22 Transient loss of consciousn ess. Patient with prodromal symptoms of feeling unwell, 1 from the face. Symptoms occurred while sitting and were associated with urinary incontinence and slow return to baseline. With family history of seizure disorder and this being her third episode, she will be evaluated for seizure disorder. -EEG -Seizure precautions -Neurology consult Lab abnormalities. Elevated WBCs 11.3 and glucose 128 suspect reactive leukocytosis and stress hyperglycemia. May be followed on outpatient basis. She has no symptoms or signs of infection currently. DVT prophylaxis: SCDs Note dictated using voice recognition software and may contain typographical errors. [facility] 05-03-2023 Neurology Consult note Date of Service 10/01/2022 Reason for Consultation syncope Referring Physician Dr. Crowley History of Present Illness 22 yr F with no PMH admitted with syncope. History obtained from medical records and documentation as well as from patient. Per patient she was in a meeting on 09/30/2022 when she felt fuzzy and passedout for few seconds to a minute, denies any witnessed seizure-like activity, denies any tongue bite, there was no post event confusion. Per patient she had 2-3 similar episodes in the past. Per documentation she had urinary incontinence. Per patient her father and brother has history of seizures. Per patient they lost her brother at the age of 16 years. At present patient denies any new onset focal neurological deficits, sensory loss, speech disturbances, visual disturbances, SAHU or dizziness. Review of Systems Complete ROS negative except as documented in HPI. Physical Exam Vitals and Measurements T: 36.9 C (Oral) TMIN: 36.6 C (Oral) TMAX: 36.9 C (Oral) HR: 84(Monitored) RR: 16 BP: 108/67 SpO2: 94% HT: 173 cm WT: 98.4 kg BMI: 32.88 Weight Dosing Weight: 98.4 kg (10/01/22) Dosing Weight: 98.4 kg (10/01/22) General Examination: conscious, alert, oriented, AoA x3 HEENT: normocephalic, pupils BERL Heart: normal S1 S2 Lungs: Bilateral air entry present Abdomen: bowel sounds present Psychiatry: Denies Anxiety, depression or suicidal ideations at present Neuro: Conscious, alert, oriented AoA x3, CN II-XII normal, no Nystagmus, EOMI, pupils BERL, No facial sensory loss, no facial asymmetry, tongue protrudes in midline, no uvula deviation, normal shoulder shrug, Power 5/5 B/L UE and LE, tone normal all 4 extremities, No tremors, No pronator drift, Reflexes + B/S/T/K/A, Plantars B/L flexor, No cerebellar signs, Romberg s deferred, No sensory loss tolight touch/temperature, normal joint/position/vibration sense, gait deferred, No frontal release signs. No involuntary movements, No NR, No Kernig s sign, No Brudzinski s sign Lab Results Total Protein: 6.4 G/dL (10/01/22 08:54:00) Albumin Level: 3.3 G/dL (10/01/22 08:54:00) Globulin: 3.1 G/dL (10/01/22 08:54:00) A/G Ratio: 1.1 ratio (10/01/22 08:54:00) Bili Total: 0.3 mg/dL (10/01/22 08:54:00) Bili Direct: 0.1 mg/dL (10/01/22 08:54:00) Bili Indirect: 0.2 mg/dL (10/01/22 08:54:00) Alk Phos: 50 U/L (10/01/22 08:54:00) AST/SGOT: 18 U/L (10/01/22 08:54:00) ALT/SGPT: 17 U/L (10/01/22 08:54:00) Drug Screen (s): Negative. (10/01/22 08:54:00) Drug Screen Interp: Drug Screen Interp (10/01/22 08:54:00) Ethanol Level: <10.0 (10/01/22 08:54:00) Salicylate Lvl (ds): <3.0 Low (10/01/22 08:54:00) Acetaminophen (ds): <2.0 Low (10/01/22 08:54:00) TCA (s): Negative-DSX (10/01/22 08:54:00) Serum Drugs screened: See Below (10/01/22 08:54:00) Assessment/Plan 22 yr F with no PMH admitted with syncope. History obtained from medical records and documentation as well as from patient. Per patient she was in a meeting on 09/30/2022 when she felt fuzzy and passedout for few seconds to a minute, denies any witnessed seizure-like activity, denies any tongue bite, there was no post event confusion. Per patient she had 2-3 similar episodes in the past. Per documentation she had urinary incontinence. Per patient her father and brother has history of seizures. Per patient they lost her brother at the age of 16 years. Impressions: Syncope ? cause- R/O Cardiac etiologies Plan: -MRI brain w/o contrast -EEG normal -Labs reviewed -Check orthostatic vitals -Defer Cardiology work up to primary medical team -Check TTE, 30 day event recorder, Tilt table test -GI/DVT prophylaxis -PT/OT/ST -Fall precautions -Further medical management per medical team -Case discussed with hospitalist medical team -Patient counseled the risks and health hazards of smoking, excessive alcohol intake, marijuana/cocaine/drug abuse and patient counseled not to smoke cigarettes, drink excessive alcohol as well as not to smoke marijuana. Patient understands the same. -Follow up with Neurology in 4 weeks as outpatient -Please call with questions if any. -Thank you for allowing us to participate in patients care and management. -All questions were answered -Will follow MRI brain and pending neurological test results peripherally when done and follow up patient as needed based on the test results. Please call with questions if any in the interim. This note has been generated using [employer] dictation software. It may contain incorrect words, punctuation's and spellings that were not noted in the review of the note prior to signing. Problem List/Past Medical History Ongoing No qualifying data Historical No qualifying data Procedure/Surgical History No qualifying data available. Medications Inpatient acetaminophen, 650 mg= 2 tab(s), Oral, q6hWA, PRN Ativan, 2 mg= 1 mL, IV Push, q4h, PRN melatonin, 3 mg= 1 tab(s), Oral, qHS, PRN melatonin, 3 mg= 1 tab(s), Oral, qHS, PRN Zofran, 4 mg= 2 mL, IV Push, q4h, PRN Zofran ODT, 4 mg= 1 tab(s), Oral, q6h, PRN Home No active home medications Allergies NKA Social History Does vape Denies ETOH abuse, denies illicit drug use Denies being on control or hormonal pills Family History Father and brother with seizures. Immunizations No qualifying data available. Digitally Signed by SHERRY CORTEZ MD on 10/01/2022 11:44 AM [facility] [id number] Note Date of Service 10/01/2022 Date Read 10/01/2022 EEG Report Indication Assess for epileptiform activity. EEG Description EEG with 10-20 lead placement system. Photic stimulation/hyperventilation was performed. The posterior dominant rhythm was 10-11 Hz synchronous, symmetric, reactive. Photic stimulation/hyperventilation produced no unexpected EEG changes. Sleep was identified. There is no abnormal background slowing noted. No interictal epileptiform discharges or electrographic seizures noted during therecord. Artefact noted during the entire record, study limited by the same. Impression This is a normal awake and asleep EEG. No interictal epileptiform discharges or electrographic seizures noted during the record. The lack of epileptiform activity does not conclusively rule out a seizure disorder. If clinically indicated, a repeat study with prolonged sampling may have higher sensitivity for detecting interictal discharges. Digitally Signed by SHERRY CORTEZ MD on 10/01/2022 11:32 AM [facility] [id number] History and physical note Date of Service 10/01/22 Chief Complaint Loss of consciousness History of Present Illness 22-year-old female with PMHx congenitally small ear canal presents to hospital as a transfer from ED for passing out. History obtained by patient, ED physician, chart review. Patient reports that she was sitting in a chair at a meeting when she suddenly felt warm and fuzzy in the head and then lost consciousness. She has had 2 similar episodes in the past. Reports that she was not immediately aware of her surroundings following. Per report, she urinated during the episode. She denies any recent life stressors. No physical symptoms prior to the episode. She is unsure how long she was unconscious. Labs and imaging at Alcohol level not elevated. CBC shows WBC 11.3, otherwise no remarkable finding. CMP with glucose 128, otherwise normal. D-dimer was 263 Urine drug screen was negative. Troponin was normal. BNP normal Serum negative. UA was not a clean-catch specimen with moderate epithelial cells. Per verbal report from ED physician she had a CTA chest, CT abdomen pelvis head which were negativefor acute pathology. Review of Systems Pertinent review of systems are included in the HPI. All other systems were reviewed and are negative for acute changes from the patient's baseline. Physical Exam Vitals and Measurements T: 36.6 C (Oral) HR: 68 RR: 16 BP: 121/74 SpO2: 100% HT: 173 cm WT: 98.4 kg BMI: 32.88 Weight Dosing Weight: 98.4 kg (10/01/22) Dosing Weight: 98.4 kg (10/01/22) GA: Alert and oriented x3, no acute distress Abd: Not distended HEENT: NCAT, sclera anicteric, oral mucosa moist Pulmonary: No tachypnea or use of accessory respiratory muscles. MSK: No gross deformities Cardiovascular: Not tachycardic Skin: Warm and dry Neuro: Spontaneous movement of all extremities, cranial nerves II through XII grossly normal Psychiatric: Thought content, associations, attention are all normal. Assessment/Plan Transient loss of consciousness. Patient with prodromal symptoms of feeling unwell, 1 from the face. Symptoms occurred while sitting and were associated with urinary incontinence and slow return to baseline. With family history of seizure disorder and this being her third episode, she will be evaluated for seizure disorder. -EEG -Seizure precautions -Neurology consult Lab abnormalities. Elevated WBCs 11.3 and glucose 128 suspect reactive leukocytosis and stress hyperglycemia. May be followed on outpatient basis. She has no symptoms or signs of infection currently. DVT prophylaxis: SCDs Note dictated using voice recognition software and may contain typographical errors. Problem List/Past Medical History Ongoing No qualifying data Historical No qualifying data Procedure/Surgical History No qualifying data available. Medications No qualifying data available Allergies NKA Social History Patient denies any alcohol or recreational substance use Family History Seizures in father and brother Immunizations No qualifying data available. Code Status Code Status - Ordered -- 10/01/22 5:25:00 EDT, Full Code, Constant Order Digitally Signed by KENISHA NICHOLSON MD on 10/01/2022 05:33 AM [facility] noteNo assessment information availableWParkview Health [facility] Work Phone: Hospital course Narrative No data available for this section [facility] Discharge instructions No data available for this section [facility] Discharge instructionsAmbulatory Orders* Pain Management Location: None Selected [facility] Work Phone: Progress note No data available for this section [facility] Profdejc note Author Rosanna Joiner [facility] Note Date/Time January 23, 2025 9: 04am [facility] [address], [address] [place] [address] OFFICE VISIT Date of Service: 01/23/25 MR#: [id number] Acct: [id number] Name: EMI ASHLEY Rep #: [id number] : 2000 Provider: OJE Joiner Age/Sex: 24/F Location: [facility] [place] [facility] Status: Signed Intake Vital Signs 01/09/25 11:59 01/23/25 08:15 01/23/25 08:19 Height 5 ft 8 in 5 ft 8 in 5 ft 8 in Weight: 225 lb BMI 34.2 BP 105/69 Intake Visit Reasons: ER follow up heavy bleeding 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 Is patient in pain?: No Allergies No Known Allergies Allergy (Verified 01/23/25 08:15) Is last menstrual period known: Yes Last Menstrual Period: 01/17/25 Post menopausal: No Patient : No : No [facility] History Ovarian cyst Complex regional pain syndrome Surgical History History of placement of ear tubes Family History Grandfather Heart disease Diabetes Mother Asthma Social History adopted: No household members: none housing: apartment number of children: 0 current occupational status: employed current occupation: [employer] current occupational exposures/hazards: No pets and animals: No history of recent travel: No sexually active: Yes Smoking Status: Former smoker second hand exposure: No alcohol intake: current alcohol intake frequency: a few times a month substance use type: does not use well-balanced diet: daily or most days caffeine: No eating out: rarely or never during the past year weight has: remained stable what type of physical activity do you participate in: none larry/gnosticism: Sabianist seatbelt use: always do you feel safe at home: Yes additional social history: single HPI ER follow up heavy bleeding Details: EMI ASHLEY is a 24 year old who presents for ER follow up from heavy menses. She is here today with a friend and her mother. She was seen in [place] ER on 01/09/2025 for a menses that was heavier than usual for her. She reports at that time she was filling 3 tampons within 1 hour. She was started on Norethindrone. At that time an ultrasound was completed that showed a fibroid measuring 1.4 cm1.7 cm 2.3 cm fibroid in the right side of the uterus. She reports over the past year she has dealt with more heavy menses; over the past 3 months she has noticed them being worse. She had ovarian cyst removed from right ovary ( in [place]) last year. Today she reports her bleeding has stopped (2 days ago). She reports she also has a right lower quad abdominal pain that started yesterday. Onset was associated with nausea that persisted throughout the day; reports she also had emesis. She as unable to keep food down yesterday. Continues with pain today in the right lower quad as well as mild nausea. Still has appendix. Last BM yesterday. Female Reproductive History Last Menstrual Period: 01/17/25 History 0 Elective abortions Hx Para Spontaneous abortions Hx # Term Pregnancies Ectopic pregnancies Hx # Pregnancies Multiple births # of living children ROS Const Constitutional: Reports poor appetite; Denies body ache, chills or fever(s) Cardio Card: Denies chest pain at rest or palpitations Resp Resp: Denies cough or dyspnea GI GI: Reports abdominal pain (right lower quad), nausea and vomiting; Denies hematemesis or hematochezia : Reports as per HPI and pelvic pain; Denies difficulty voiding, dysuria, hematuria, vaginal discharge, vaginal dryness, vaginal odor or vaginal pruritus Exam Const General: cooperative, comfortable, no acute distress and well developed Resp Effort & Inspection: normal respiratory effort, able to speak in complete sentences and symmetric chest movement GI Inspection: normal to inspection Palpation: tender in the RLQ and with rebound tenderness Neuro General: patient alert, patient awake, patient oriented x3 and moves all extremities Psych Appearance: grossly normal Mental Status: mental status grossly normal Coding Level of Care Code New Pt Off vis,new,level 3 Patient Type New Diagnoses Menorrhagia N92.0 Right lower quadrant abdominal pain R10.31 Uterine fibroid D25.9 Assessment and Plan Assessment and Plan (1) Menorrhagia: Status: Acute Comment: stable with medroxyprogesterone Plan: continue medroxyprogesterone. Discussed normal expectation of treatment course Will repeat ultrasound in 6 weeks. Consider OCP for menses control after repeat ultrasound. To call office to schedule appt in 6 weeks after ultrasound. (2) Right lower quadrant abdominal pain: Status: Acute Comment: highly suspicious of appendicitis Plan: Exam consistent with acute appendicitis. Advised to proceed to ER for acute evaluation/imaging. Patient agreeable and being transported to [place] ER by mother and friend. (3) Uterine fibroid: Plan: Re-eval with ultrasound in 6 weeks. Likely start OCP at that time. Orders: Orders Pelvic w/ Transvaginal 6 Weeks N92.0 - Excessive and frequent menstruation withregular cycle Medications: Discontinued megestrol Discontinued Reason: Pt no longer taking 40 mg PO QDAY 30 tabs 0RF 01/23/25 0904 <Electronically signed by Rosanna MURPHYC> Date _ Rosanna MURPHYC Cosigner Signature: Date (if applicable) CC: ~ [facility] Work Phone: Reason for referral (narrative)No reason for referral information availableWParkview Health [facility] Work Phone: Summary Purpose Family History Relationship Condition Age at Onset Recorded Date/T malini grandfather Cardiac disease Unknown Diabetes mellitus Unknown mother Asthma Unknown Advance Directives Advance Directive Response Recorded Date/ Time Living Will No April 20 4:46pm Power of Maintenance Fitter No April 20, 2023 4:46pm Advance Directive Response Recorded Date/ Time Do you have a Healthcare Power of Maintenance Fitter? No September 29, 2024 12:15pm Do you have a Healthcare Power of Maintenance Fitter? No October 28, 2024 3:27pm Advance Directive Response Recorded Date/ Time Do you have a Healthcare Power of Maintenance Fitter? No September 29, 2024 12:15pm Do you have a Healthcare Power of Maintenance Fitter? No October 28, 2024 3:27pm Do you have a Healthcare Power of Maintenance Fitter? No January 09, 2025 12:17pm Chief Complaint and Reason for Visit Chief Complaint ANKLE PAIN Chief Complaint Admit Date SYNCOPE September 29, 2024 11:41a m UPPER EXT October 28, 2024 2:54p m Chief Complaint Admit Date SYNCOPE September 29, 2024 11:41a m UPPER EXT October 28, 2024 2:54p m ED FOLLOW UP November 01, 2024 1:44p m room 7 November 01, 2024 2:26p m 1 WK F/U November 08, 2024 2:24 pm Reason for Visit Admit Date Neuropraxia of left upper extremity November 01, 2024 1:44pm Contusion of left index finger November 01, 2024 1:44pm Chief Complaint Admit Date SYNCOPE September 29, 2024 11:41a m UPPER EXT October 28, 2024 2:54p m ED FOLLOW UP November 01, 2024 1:44p m room 7 November 01, 2024 2:26p m Chief Complaint Admit Date SYNCOPE September 29, 2024 11:41a m UPPER EXT October 28, 2024 2:54p m ED FOLLOW UP [facility] November 01, 2024 1:44p m room 7 November 01, 2024 2:26p m 1 WK F/U [facility] November 08, 2024 2:24 pm FINGER CONTUSION RX HERE November 22, 2024 7:53am 2 WK F/U [facility] November 22, 2024 1:55 pm Reason for Visit Admit Date Neuropraxia of left upper extremity November 01, 2024 1:44pm Contusion of left index finger November 01, 2024 1:44pm Neuropraxia of left upper extremity November 08, 2024 2:24pm Contusion of left index finger October 2:24pm Chief Complaint Admit Date SYNCOPE September 29, 2024 11:41a m UPPER EXT October 28, 2024 2:54p m ED FOLLOW UP [facility] November 01, 2024 1:44p m room 7 November 01, 2024 2:26p m 1 WK F/U [facility] November 08, 2024 2:24 pm 2 WK F/U [facility] November 22, 2024 1:55 pm FINGER CONTUSION RX HERE December 15, 2024 5:00pm 3 WEEK FOLLOW UP [facility] December 20, 2024 1:1 6pm Reason for Visit Admit Date Neuropraxia of left upper extremity November 01, 2024 1:44pm Contusion of left index finger November 01, 2024 1:44pm Neuropraxia of left upper extremity November 08, 2024 2:24pm Contusion of left index finger October 2:24pm Neuropraxia of left upper extremity November 22, 2024 1:55pm Contusion of left index finger October 1:55pm Chief Complaint Admit Date SYNCOPE September 29, 2024 11:41a m UPPER EXT October 28, 2024 2:54p m ED FOLLOW UP [facility] November 01, 2024 1:44p m room 7 November 01, 2024 2:26p m 1 WK F/U [facility] November 08, 2024 2:24 pm 2 WK F/U [facility] November 22, 2024 1:55 pm 3 WEEK FOLLOW UP [facility] December 20, 2024 1:1 6pm FINGER CONTUSION RX HERE December 22, 2024 4:30pm NEUROPRAXIA OF LEFT UPPER EXTREMITY December 23, 2024 10:16am 1 WK F/U - [facility] December 27, 2024 12:5 8pm Reason for Visit Admit Date Neuropraxia of left upper extremity November 01, 2024 1:44pm Contusion of left index finger November 01, 2024 1:44pm Neuropraxia of left upper extremity November 08, 2024 2:24pm Contusion of left index finger October 2:24pm Neuropraxia of left upper extremity November 22, 2024 1:55pm Contusion of left index finger October 1:55pm Complex regional pain syndrome November 1:16pm Flexor tendon rupture of hand December 20, 2024 1:16pm Neuropraxia of left upper extremity December 20, 2024 1:16pm Chief Complaint Admit Date SYNCOPE September 29, 2024 11:41a m UPPER EXT October 28, 2024 2:54p m ED FOLLOW UP [facility] November 01, 2024 1:44p m room 7 November 01, 2024 2:26p m 1 WK F/U [facility] November 08, 2024 2:24 pm 2 WK F/U [facility] November 22, 2024 1:55 pm 3 WEEK FOLLOW UP [facility] December 20, 2024 1:1 6pm NEUROPRAXIA OF LEFT UPPER EXTREMITY December 23, 2024 10:16am 1 WK F/U - [facility] December 27, 2024 12:5 8pm FINGER CONTUSION RX HERE December 27, 2024 3:00pm Reason for Visit Admit Date Neuropraxia of left upper extremity November 01, 2024 1:44pm Contusion of left index finger November 01, 2024 1:44pm Neuropraxia of left upper extremity November 08, 2024 2:24pm Contusion of left index finger October 2:24pm Neuropraxia of left upper extremity November 22, 2024 1:55pm Contusion of left index finger October 1:55pm Complex regional pain syndrome November 1:16pm Neuropraxia of left upper extremity December 20, 2024 1:16pm Flexor tendon rupture of hand December 20, 2024 1:16pm Complex regional pain syndrome November 12:58pm Neuropraxia of left upper extremity December 27, 2024 12:58pm Chief Complaint Admit Date SYNCOPE September 29, 2024 11:41a m UPPER EXT October 28, 2024 2:54p m ED FOLLOW UP [facility] November 01, 2024 1:44p m room 7 November 01, 2024 2:26p m 1 WK F/U [facility] November 08, 2024 2:24 pm 2 WK F/U [facility] November 22, 2024 1:55 pm 3 WEEK FOLLOW UP [facility] December 20, 2024 1:1 6pm NEUROPRAXIA OF LEFT UPPER EXTREMITY December 23, 2024 10:16am 1 WK F/U - [facility] December 27, 2024 12:5 8pm FINGER CONTUSION RX HERE December 27, 2024 3:00pm MENSES January 09, 2025 11 :59am Chief Complaint Admit Date SYNCOPE September 29, 2024 11:41a m UPPER EXT October 28, 2024 2:54p m ED FOLLOW UP [facility] November 01, 2024 1:44p m room 7 November 01, 2024 2:26p m 1 WK F/U [facility] November 08, 2024 2:24 pm 2 WK F/U [facility] November 22, 2024 1:55 pm 3 WEEK FOLLOW UP [facility] December 20, 2024 1:1 6pm NEUROPRAXIA OF LEFT UPPER EXTREMITY December 23, 2024 10:16am 1 WK F/U - [facility] December 27, 2024 12:5 8pm FINGER CONTUSION RX HERE December 27, 2024 3:00pm MENSES January 09, 2025 11 :59am ER follow up heavy bleeding January 23, 2025 7:28am Reason for Visit Admit Date Neuropraxia of left upper extremity November 01, 2024 1:44pm Contusion of left index finger November 01, 2024 1:44pm Neuropraxia of left upper extremity November 08, 2024 2:24pm Contusion of left index finger October 2:24pm Neuropraxia of left upper extremity November 22, 2024 1:55pm Contusion of left index finger October 1:55pm Complex regional pain syndrome November 1:16pm Neuropraxia of left upper extremity December 20, 2024 1:16pm Flexor tendon rupture of hand Shannen 22nd, 2025 1:16pm Complex regional pain syndrome November 12:58pm Neuropraxia of left upper extremity December 27, 2024 12:58pm Menorrhagia January 23, 2025 7: 28am Right lower quadrant abdominal pain Augu 2024 7:28am Uterine fibroid January 23, 2025 7: 28am Additional Source Comments Source Comments (unrecognize d section and content) In the event this informatio n is protected by the Federal Confidentiality of Alcohol and Drug Abuse Patient Records regulations: The Federal rules restrict any use of the information to criminally investigate or prosecute any alcohol or drug abuse patient.[facility] Company[facility] the event this information is protected by the Federal Confidentiality of Alcohol and Drug Abuse Patient Records regulations: The Federal rules restrict any use of the information to criminally investigate or prosecute any alcohol or drug abuse patient.[facility] INFORMATION SOURCE (unrecogn ized section and content) DATE CREATED AUTHOR 10/02/2022 [facility] DATE CREATED AUTHOR AUTHOR'S ORGANIZ ATION 10/05/2022 [facility] DATE CREATED AUTHOR AUTHOR'S ORGANIZ ATION 10/15/2022 [facility] DATE CREATED AUTHOR AUTHOR'S ORGANIZ ATION 06/27/2023 [facility] DATE CREATED AUTHOR AUTHOR'S ORGANIZ ATION 10/15/2023 [facility] DATE CREATED AUTHOR AUTHOR'S ORGANIZ ATION 01/19/2025 [facility] Patient Care team informatio n (unrecognized section and content) Team Status: Active Member Role Status Dates Dr. Bryan José MD Family Provider Active Dr. Bryan José MD Primary Care Provider Activ e Team Status: Inactive Member Role Status Dates Dr. Bryan José MD Primary Care Provider Activ e Dr. Antoni Cameron DO Emergency Provider Active Team Status: Active Member Role Status Dates No Primary Care Physician Primary Care Provider Active Team Status: Inactive Member Role Status Dates No Primary Care Physician Primary Care Provider Active Start: September 29, 2024 End: September 29, 2024 Dr. Nicola Breen MD Attending Provider Active S tart: September 29, 2024 End: September 29, 2024 Dr. Nicola Breen MD Referring Provider Active S tart: September 29, 2024 End: September 29, 2024 Dr. Nicola Breen MD Emergency Provider Active S tart: September 29, 2024 End: September 29, 2024 Team Status: Inactive Member Role Status Dates No Primary Care Physician Primary Care Provider Active Start: October 28, 2024 End: October 28, 2024 Dr. Ben Garber DO Referring Provider Active Start: October 28, 2024 End: October 28, 2024 Dr. Ben Garber DO Emergency Provider Active Start: October 28, 2024 End: October 28, 2024 Team Status: Inactive Member Role Status Dates No Primary Care Physician Primary Care Provider Active Start: October 28, 2024 End: October 28, 2024 Dr. Ben Garber DO Attending Provider Active Start: October 28, 2024 End: October 28, 2024 Dr. Ben Garber DO Referring Provider Active Start: October 28, 2024 End: October 28, 2024 Dr. Ben Garber DO Emergency Provider Active Start: October 28, 2024 End: October 28, 2024 Team Status: Inactive Member Role Status Dates No Primary Care Physician Primary Care Provider Active Start: November 01, 2024 End: November 01, 2024 No Primary Care Physician Referring Provider Active Start: November 01, 2024 End: November 01, 2024 Dr. Ermelinda Rao MD Attending Provider Active Start: November 01, 2024 End: November 01, 2024 Team Status: Inactive Member Role Status Dates No Primary Care Physician Primary Care Provider Active Start: November 01, 2024 End: November 01, 2024 Dr. Isidro Addison MD Attending Provider Active S tart: November 01, 2024 End: November 01, 2024 Team Status: Inactive Member Role Status Dates No Primary Care Physician Primary Care Provider Active Start: November 08, 2024 End: November 08, 2024 No Primary Care Physician Referring Provider Active Start: November 08, 2024 End: November 08, 2024 Dr. Ermelinda Rao MD Attending Provider Active Start: November 08, 2024 End: November 08, 2024 Team Status: Active Member Role Status Dates No Primary Care Physician Primary Care Provider Active Start: November 01, 2024 No Primary Care Physician Referring Provider Active Start: November 01, 2024 Dr. Ermelinda Rao MD Attending Provider Active Start: November 01, 2024 Team Status: Active Member Role Status Dates No Primary Care Physician Primary Care Provider Active Start: November 22, 2024 Dr. Ermelinda Rao MD Attending Provider Active Start: November 22, 2024 Dr. Ermelinda Rao MD Referring Provider Active Start: November 22, 2024 Team Status: Inactive Member Role Status Dates No Primary Care Physician Primary Care Provider Active Start: November 22, 2024 End: November 22, 2024 No Primary Care Physician Referring Provider Active Start: November 22, 2024 End: November 22, 2024 Dr. Ermelinda Rao MD Attending Provider Active Start: November 22, 2024 End: November 22, 2024 Team Status: Active Member Role/Relationship Status Dates No Primary Care Physician Primary Care Provider Active Team Status: Inactive Member Role/Relationship Status Dates No Primary Care Physician Primary Care Provider Active Start: September 29, 2024 End: September 29, 2024 Dr. Nicola Breen MD Attending Provider Active S tart: September 29, 2024 End: September 29, 2024 Dr. Nicola Breen MD Referring Provider Active S tart: September 29, 2024 End: September 29, 2024 Dr. Nicola Breen MD Emergency Provider Active S tart: September 29, 2024 End: September 29, 2024 Team Status: Inactive Member Role/Relationship Status Dates No Primary Care Physician Primary Care Provider Active Start: October 28, 2024 End: October 28, 2024 Dr. Ben Garber DO Attending Provider Active Start: October 28, 2024 End: October 28, 2024 Dr. Ben Garber DO Referring Provider Active Start: October 28, 2024 End: October 28, 2024 Dr. Ben Garebr DO Emergency Provider Active Start: October 28, 2024 End: October 28, 2024 Team Status: Inactive Member Role/Relationship Status Dates No Primary Care Physician Primary Care Provider Active Start: November 01, 2024 End: November 01, 2024 Dr. Ermelinda Rao MD Attending Provider Active Start: November 01, 2024 End: November 01, 2024 Dr. Ben Garber DO Referring Provider Active Start: November 01, 2024 End: November 01, 2024 Team Status: Inactive Member Role/Relationship Status Dates No Primary Care Physician Primary Care Provider Active Start: November 01, 2024 End: November 01, 2024 Dr. Isidro Addison MD Attending Provider Active S tart: November 01, 2024 End: November 01, 2024 Team Status: Inactive Member Role/Relationship Status Dates No Primary Care Physician Primary Care Provider Active Start: November 08, 2024 End: November 08, 2024 No Primary Care Physician Referring Provider Active Start: November 08, 2024 End: November 08, 2024 Dr. Ermelinda Rao MD Attending Provider Active Start: November 08, 2024 End: November 08, 2024 Team Status: Inactive Member Role/Relationship Status Dates No Primary Care Physician Primary Care Provider Active Start: November 22, 2024 End: November 22, 2024 No Primary Care Physician Referring Provider Active Start: November 22, 2024 End: November 22, 2024 Dr. Ermelinda Rao MD Attending Provider Active Start: November 22, 2024 End: November 22, 2024 Team Status: Active Member Role/Relationship Status Dates No Primary Care Physician Primary Care Provider Active Start: December 15, 2024 Dr. Ermelinda Rao MD Attending Provider Active Start: December 15, 2024 Dr. Ermelinda Rao MD Referring Provider Active Start: December 15, 2024 Team Status: Inactive Member Role/Relationship Status Dates No Primary Care Physician Primary Care Provider Active Start: December 20, 2024 End: December 20, 2024 No Primary Care Physician Referring Provider Active Start: December 20, 2024 End: December 20, 2024 Dr. Ermelinda Rao MD Attending Provider Active Start: December 20, 2024 End: December 20, 2024 Team Status: Inactive Member Role/Relationship Status Dates No Primary Care Physician Primary Care Provider Active Start: December 20, 2024 End: December 20, 2024 No Primary Care Physician Referring Provider Active Start: December 20, 2024 End: December 20, 2024 Dr. Ermelinda Rao MD Attending Provider Active Start: December 20, 2024 End: December 20, 2024 Team Status: Active Member Role/Relationship Status Dates No Primary Care Physician Primary Care Provider Active Start: December 22, 2024 Dr. Ermelinda Rao MD Attending Provider Active Start: December 22, 2024 Dr. Ermelinda Rao MD Referring Provider Active Start: December 22, 2024 Team Status: Active Member Role/Relationship Status Dates No Primary Care Physician Primary Care Provider Active Start: December 23, 2024 Dr. Ermelinda Rao MD Attending Provider Active Start: December 23, 2024 Dr. Ermelinda Rao MD Referring Provider Active Start: December 23, 2024 Team Status: Inactive Member Role/Relationship Status Dates No Primary Care Physician Primary Care Provider Active Start: December 27, 2024 End: December 27, 2024 No Primary Care Physician Referring Provider Active Start: December 27, 2024 End: December 27, 2024 Dr. Ermelinda Rao MD Attending Provider Active Start: December 27, 2024 End: December 27, 2024 Team Status: Inactive Member Role/Relationship Status Dates No Primary Care Physician Primary Care Provider Active Start: December 23, 2024 End: December 23, 2024 Dr. Ermelinda Rao MD Attending Provider Active Start: December 23, 2024 End: December 23, 2024 Dr. Ermelinda Rao MD Referring Provider Active Start: December 23, 2024 End: December 23, 2024 Team Status: Inactive Member Role/Relationship Status Dates No Primary Care Physician Primary Care Provider Active Start: December 27, 2024 End: December 27, 2024 No Primary Care Physician Referring Provider Active Start: December 27, 2024 End: December 27, 2024 Dr. Ermelinda Rao MD Attending Provider Active Start: December 27, 2024 End: December 27, 2024 Team Status: Active Member Role/Relationship Status Dates No Primary Care Physician Primary Care Provider Active Start: December 27, 2024 Dr. Ermelinda Rao MD Attending Provider Active Start: December 27, 2024 Dr. Ermelinda Rao MD Referring Provider Active Start: December 27, 2024 Team Status: Inactive Member Role/Relationship Status Dates No Primary Care Physician Primary Care Provider Active Start: January 09, 2025 End: January 09, 2025 Dr. Luke Canada MD Emergency Provider Active Start: January 09, 2025 End: January 09, 2025 Team Status: Inactive Member Role/Relationship Status Dates No Primary Care Physician Primary Care Provider Active Start: January 09, 2025 End: January 09, 2025 Dr. Luke Canada MD Attending Provider Active Start: January 09, 2025 End: January 09, 2025 Dr. Luke Canada MD Emergency Provider Active Start: January 09, 2025 End: January 09, 2025 Team Status: Inactive Member Role/Relationship Status Dates No Primary Care Physician Primary Care Provider Active Start: January 23, 2025 End: January 23, 2025 No Primary Care Physician Referring Provider Active Start: January 23, 2025 End: January 23, 2025 JOE Johnson Attending Provider Active Start: January 23, 2025 End: January 23, 2025 Goals (unrecognized section and content) Goals may be documented in a n alternate section FOR RECORDS PERTAINING TO PATIENTS WHO ARE OR HAVE BEEN ENROLLED IN A CHEMICAL DEPENDENCY/SUBSTANCEABUSE PROGRAM, SOME INFORMATION MAY BE OMITTED. This clinical summary was aggregated from multiple sources. Caution should be exercised in using it in the provision of clinical care. This summary normalizes information from multiple sources, and as a consequence, information in this document may materially change the coding, format and clinical context of patient data. In addition, data may be omitted in some cases. CLINICAL DECISIONS SHOULD BE BASED ON THE PRIMARY CLINICAL RECORDS. [employer] provides no warranty or guarantee of the accuracy or completeness of information in this document.
--- NOTE | 2025-01-23 21:24 | EKG12_ITS ---
Test Reason : DYSRHYTHMIA Blood Pressure : */* mmHG Vent. Rate : 74 BPM Atrial Rate : 74 BPM P-R Int : 188 ms QRS Dur : 80 ms QT Int : 374 ms P-R-T Axes : 53 56 38 degrees QTcB Int : 415 ms Normal sinus rhythm Normal ECG Confirmed by PEPITO GOODE ([id number]), senior editor TERRY NGUYEN ([id number]) on 01/24/2025 1:04:45 PM Referred By: Confirmed By: PEPITO GOODE
--- NOTE | 2025-01-23 21:28 | EDS_ITS ---
HPI History of Present Illness Chief Complaint: Syncope Narrative Narrative: Patient is a 24 year old female presenting to the emergency department for a syncopal episode. Patient has a past medical history of complex regional pain syndrome, nicotine use, uterine fibroid and. Patient was here this morning for right lower quadrant abdominal pain. States that this started yesterday. Reports the pain has been constant since it started. She endorses nausea with a few episodes of nonbilious, none bloody vomiting. Denies any diarrhea or constipation. Denies any dysuria, hematuria. Denies any vaginal bleeding, discharge or pain. States that workup here was negative and she was discharged home. States that she felt lightheaded when she was walking in a parking lot and then sat on her car and laid her seat back and then lost consciousness. Reportedly her friend found her unconscious. She denies headache, visual changes, numbness or weakness in her arms or legs. Denies any neck or back pain. Denies any chest pain or shortness of breath. States she still feels lightheaded, denies dizziness. Denies fever or chills. [facility] Medical History Ovarian cyst Complex regional pain syndrome Home Medications ?Medication ?Instructions ?Recorded ?Last Taken ?Type ascorbate calcium (vitamin C) 500 500 mg PO DAILY 06/2509/29/24 History mg tablet cyanocobalamin (vitamin B-12) 500 500 mcg PO DAILY 06/2509/29/24 History mcg tablet (B-12 DOTS) medroxyprogesterone 10 mg tablet 20 mg (2 x 10 mg) PO QDAY #60 tabs 01/17/25 Unknown Rx dicyclomine 10 mg capsule 20 mg (2 x 10 mg) PO TIDAC # 20 01/23/25 Unknown Rx CAPSULES Allergy/AdvReac Type Severity Reaction Status Date / Time No Known Allergies Allergy Verified 01/23/25 20:41 Family History Grandfather Heart disease Diabetes Mother Asthma Surgical History History of placement of ear tubes Social History adopted: No household members: none housing: apartment number of children: 0 current occupational status: employed current occupation: [employer] current occupational exposures/hazards: No pets and animals: No history of recent travel: No sexually active: Yes Smoking Status: Former smoker second hand exposure: No alcohol intake: current alcohol intake frequency: a few times a month substance use type: does not use well-balanced diet: daily or most days caffeine: No eating out: rarely or never during the past year weight has: remained stable what type of physical activity do you participate in: none larry/hoahaoism: Yazidi seatbelt use: always do you feel safe at home: Yes additional social history: single ROS ROS ED ROS Narrative see HPI EXAM Physical Exam Narrative Exam Narrative: Vital signs: Reviewed General: Alert and orientedx3. No acute distress HEENT: Head is normocephalic and atraumatic, sinuses nontender, pupils equal round and reactive. Nares are patent. Oropharynx and throat exams normal. Neck: Supple without lymphadenopathy nontender Cardiovascular: Regular rate and rhythm, no murmurs. No rubs or gallops. Normal S1 and S2 Respiratory: Clear to auscultation bilaterally. No wheezes, rales, rhonchi Abdominal: Soft and tender to palpation in the right lower and upper quadrants. Normal bowel sounds. No guarding or rebound. Nonsurgical abdomen Extremities: No tenderness. No bruising. Normal range of motion. Normal sensation. Skin: No rash or redness. Neurological: Cranial nerves II through XII are grossly intact. Normal strength and sensation. Normal cerebellar function The rest of the physical exam is unremarkable Const Vital Signs: 01/23/25 20:40 01/23/25 21:03 01/23/25 21:40 Temperature 97.9 F Temperature Source Oral Pulse Rate 79 78 Respiratory Rate 18 Respiratory Effort Normal Respiratory Pattern Normal Blood Pressure 130/77 H 107/69 Blood Pressure Mean 94 81 Pulse Ox 99 99 Oxygen Delivery Method Room Air Room Air 01/23/25 22:00 01/23/25 23:00 01/23/25 23:30 Temperature 97.9 F Temperature Source Pulse Rate 74 73 60 Respiratory Rate 16 18 18 Respiratory Effort Respiratory Pattern Blood Pressure 121/65 H 117/70 115/75 Blood Pressure Mean 83 85 88 Pulse Ox 99 100 99 Oxygen Delivery Method Room Air Room Air MDM MDM MDM Narrative Medical decision making narrative: Patient is a 24-year-old female presenting to the emergency department for a syncopal episode and continued right lower quadrant pain. Patient resting in bed comfortably no acute distress. Vitals are stable. Fluid bolus ordered. Labs reviewed from this morning and are unremarkable. was negative. CT reviewed from this morning and is also unremarkable. With the continued right lower quadrant pain I have low suspicion for ovarian pathology however we will obtain a transvaginal ultrasound. This shows a right uterine body fibroid which was previously known and sonographic normal ovaries with preserved blood flow bilaterally. CBC with no leukocytosis and normal hemoglobin. CMP with no significant normalities. EKG with normal sinus rhythm, no ischemic changes. No dysrhythmia. No ST elevation or depression. Patient has no shortness of breath, no hypoxia or tachycardia I do not suspect PE as the cause. Patient and family updated on negative workup. Patient discharged from the Emergency Department. I do not feel that the patient's evaluation reveals any acute reason for admission at this time. I instructed them to either follow-up with their primary care physician or promptly return to the Emergency Department for reevaluation should symptoms worsen or new symptoms develop. I explained what symptoms would indicate the need to return to the emergency department. Shared decision making was used. The patient voiced understanding of the treatment plan and is agreeable with it. Clinical impression Right lower quadrant pain Syncope Lab Data Labs: Laboratory Results - last 24 hr 01/23/25 21:30 WBC 9.8 RBC 4.64 Hgb 12.3 Hct 37.6 MCV 81.0 MCH 26.5 L MCHC 32.7 RDW Std Deviation 40.3 RDW Coeff of Rigoberto 13.7 Plt Count 319 MPV 9.9 Sodium 137 Potassium 3.9 Chloride 106 Carbon Dioxide 22.5 Anion Gap 8 BUN 14 Creatinine 1.00 Estim Creat Clear Calc 110.53 Est GFR (MDRD) Non-Af 82 BUN/Creatinine Ratio 14.0 Glucose 105 H Calcium 9.2 Total Bilirubin 0.33 AST 19 ALT 13 Alkaline Phosphatase 54 Total Protein 6.9 Albumin 4.0 Globulin 2.9 Albumin/Globulin Ratio 1.4 Radiography Diagnostic Testing: Clinical Impression(s) from Imaging Studies Transvaginal US 01/23/25 21:32 IMPRESSION: 1. Right uterine body intramural fibroid measuring up to 2.2 cm. 2. Sonographically normal ovaries, with preserved blood flow bilaterally. 3. Small volume nonspecific free pelvic fluid, may be physiologic. Reading Location: [facility] Chest X-Ray 01/23/25 21:40 IMPRESSION: NO ACUTE FINDINGS. Reading Location: [id number] Discharge Plan Triage Chief Complaint: Syncope ED Provider: Elda Banks Dx/Rx/DC Orders Clinical Impression: Syncope, Abdominal pain Instructions: Abdominal Pain, What Is Syncope, Causes of Syncope Prescriptions: No Action ascorbate calcium (vitamin C) 500 mg tablet 500 mg PO DAILY cyanocobalamin (vitamin B-12) [B-12 DOTS] 500 mcg tablet 500 mcg PO DAILY dicyclomine 10 mg capsule 20 mg PO TIDAC Qty: 20 0RF medroxyprogesterone 10 mg tablet 20 mg PO QDAY Qty: 60 0RF Rx Instructions: take 2 pills a day for 5 days then decrease to 1 pill a day for the remainder of the prescription Primary Care Provider: Care Physician,No Primary Referrals: Yassine Orozco MD [Med Staff - Active Staff] - 2 Days Care Physician,No Primary [Primary Care Provider] - Activity Restrictions/Additional Instructions: Your evaluation in the Emergency Department did not reveal any acute reason for admission. However, I want to emphasize that you may be early in the course of a disease process or illness even if it is not present. For this reason you should follow-up within 24 hours for reevaluation with either your primary care physician or if necessary back here in the Emergency Department. You should return to the Emergency Department immediately if your symptoms worsen or new symptoms develop. Print Language: Luxembourgish Disposition Disposition: Home, Self Care Discharge Date/Time: 01/23/25 23:33
--- NOTE | 2025-01-23 21:32 | US_ITS ---
PROCEDURE: TRANSVAGINAL NON- 01/23/2025 REASON FOR EXAM: RLQ PAIN, NEGATIVE CT THIS MORNING TECHNIQUE: Transvaginal pelvic ultrasound utilizing 2D grayscale and color Doppler. COMPARISON: Abdominal CT 01/23/2025. Pelvic ultrasound 01/09/2025. FINDINGS: The uterus is anteverted and measures 7.3 x 4.4 x 3.2 cm. Redemonstrated intramural fibroid in the right uterine body measuring roughly 2.2 x 2.1 x 1.8 cm. No abnormal collection is seen within the uterine cavity. Endometrial stripe appears normal measuring up to 0.5 cm in thickness. Bilateral ovaries have a normal sonographic appearance. Right ovary measures 3.3 x 1.9 x 1.3 cm. Left ovary measures 2.4 x 2 x 1.7 cm. Blood flow is demonstrated bilaterally on color Doppler. No adnexal mass. Small amount of nonspecific free fluid in the cul-de-sac. US/Transvaginal Non- IMPRESSION: 1. Right uterine body intramural fibroid measuring up to 2.2 cm. 2. Sonographically normal ovaries, with preserved blood flow bilaterally. 3. Small volume nonspecific free pelvic fluid, may be physiologic. Reading Location: [id number]
[2025-01-23] MEDS: 0.9% Normal Saline (1000mL) 1,000 ML 1000 ML IV (21:38)
[2025-01-23 21:40] VITALS: BP 107/69; PULSE 78; O2SAT 99
--- NOTE | 2025-01-23 21:40 | RAD_ITS ---
PROCEDURE: CHEST PA AND LATERAL 01/23/2025 REASON FOR EXAM: SYNCOPE TECHNIQUE: CHEST PA AND LATERAL COMPARISON: 09/29/2024. FINDINGS: The heart is normal in size. The lungs are clear. No acute osseous abnormalities. RAD/Chest PA and Lateral IMPRESSION: NO ACUTE FINDINGS. Reading Location: [id number]
[2025-01-23 21:59] LABS: Hematocrit 37.6 % (37-47); Hemoglobin 12.3 g/dL (12.0-15.0); Mean Corp Hgb Conc 32.7 g/dL (32-36); Mean Corpuscular Volume 81.0 fL (81-99); Mean Platelet Vol. 9.9 fl (6.2-12.0); Platelet Count 319 K/mm3 (150-450); RBC Distribution Width CV 13.7 % (11.6-14.6); RBC Distribution Width SD 40.3 fl (35.1-43.9); Red Blood Count 4.64 M/mm3 (4.2-5.4); White Blood Count 9.8 K/mm3 (4.4-11.0)
[2025-01-23 22:00] VITALS: BP 121/65; PULSE 74; RESP 16; O2SAT 99
[2025-01-23 22:37] LABS: AST(SGOT) 19 U/L (<=31); Alanine Aminotransfer ALT/SGPT 13 U/L (<=34); Albumin, Serum 4.0 g/dL (3.5-5.0); Alkaline Phosphatase 54 U/L (35-104); Anion Gap 8 (5-15); BUN 14 mg/dL (4-19); BUN/Creat Ratio 14.0 RATIO (10-20); Calcium,Total 9.2 mg/dL (7.6-11.0); Carbon Dioxide 22.5 mmol/L (21.0-32.0); Chloride 106 mmol/L (98-108); Estimated Creatinine Clearance 110.53 ml/min (50-250); Globulin 2.9 g/dL (2.2-4.2); Glucose 105 mg/dL (70-99); Potassium 3.9 mmol/L (3.3-5.1)
[2025-01-23 23:00] VITALS: BP 117/70; PULSE 73; RESP 18; O2SAT 100
[2025-01-23 23:30] VITALS: BP 115/75; PULSE 60; RESP 18; TEMP 36.6; O2SAT 99
== END 2025-01-23 23:33 | disposition home or self-care (01) ==
PROVIDERS: Emergency Provider Student in an Organized Health Care Education/Training Program; Visit Provider Student in an Organized Health Care Education/Training Program
DX: R55 Syncope and collapse (principal); Z87.891 Personal history of nicotine dependence; R10.31 Right lower quadrant pain
CPT/HCPCS: 71046; 76830; 80053; 85027; 93005; 96360; 99284; A4216

== ENCOUNTER 2025-02-07 07:30 | Outpatient (RCR) | payer OTHER, SELFPAY ==
--- NOTE | 2024-11-22 08:51 | HP.OTEVAL ---
Patient's Visit Information Visit Information Visit Information: YANI ASHLEY is a 24 year old F, referred to Occupational Therapy by Dr. Yuniel Rao MD, with a diagnosis of L index finger crush injury. Date of Evaluation: 11/22/24 Occupational Therapist: Eun Ortega Subjective Subjective: Pt 3w 4d post crush injury at work to L index finger where she shut it in a door. no fractures or dislocations present. 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 pt is technically on light duty at work, but she has a hard time not hitting her finger on things. still wearing her splint at work and when she is active, but at rest takes it off. has a different wrap on that she wears at night. no N&T at this time but presents around 9 in the morning then lasts all day. only taking motrin and advil when her pain is high. feels that swelling has gone down since initial injury. 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 pt is right hand dominant, no specific lifting restrictions at this time. difficulty to wash her hair, is able to cook, dressing difficulty with hooking a bra. Pain L index: Current Pain Intensity: 5 Pain Intensity Range: 0 and 9 ROM MP: L D2 85 PIP: L D2 27 DIP: L D2 20 ROM Comments: WFL all other fingers/wrist Strength Senior Relationship Manager: R 80#, L 40# Lateral Pinch: R 14#, L 6# Tip-to-Tip Pinch: R 8#, L 2# Strength Comments: increased pain with all grasp patterns especially tip Edema Other: WFL comparable to unaffected side Nine Hole Peg Right: 23 Left: 30 In-Hand Manipulation Finger to Palm Translation: Mild - Left Palm to Finger Translation: Moderate - Left Comments: increased pain with finger flexion to move beads from palm to finger Quick DASH-Disab of Arm,Shoulder& Hand Quick DASH Score: 38.6350 Goals Goal:: pt to demo improved L art installer strength by 20# in order to grasp heavier objects during BC tasks pt to demo improved L tip pinch strength by 3# to grasp small items during ADLs pt to demo improved L lateral pinch by 4# for greater use of power pinch with non dominant hand during BC tasks Goal:: pt to demo improved PIP/DIP AROM by 50' for greater use of non domninant hand to make a full fist during grasping tasks Goal:: pt to report no more than 3/10 pain levels during daily functional tasks Goal:: pt to valeria improved FMC skills by reducing L 9HPT time by 6 seconds for greater use of L hand at work when manipulating coins Goal:: pt to valeria improved overall indep at home/work by reduced DASH score by 15 points Rehabilitation General Assessment: pt presenting with pain and limited AROM of L index finger following crush injury at work 10/28 by smashing finger in metal door. pt demo increased pain with all movement creating difficulty for completing daily tasks such as washing hair and hooking bra. pt with increased pain and N&T throughout the day when she is using it at work. pt advising to start weaning from splint that is keeping PIP and DIP in full extension as this will continue to reduce her motion. pt demo decreasd overall pinch/art installer strength as well as FMC as compared to unaffected side. pt would benefit from skilled OT services in OP setting to reduce pain, improve AROM, strength and FMC to be able to use hand again and return to PLOF. Rehabilitation Potential: Good Anticipated Interventions Anticipated Interventions: A/AAROM/PROM, Strengthening, Massage, Triggerpoint Release, Desensitization, Sensory Retraining and Fine Motor Coord/Jonathan Visit Plan Frequency: 2x /Week Duration: 6 Weeks General Plan: continue per POC for x2/week for 6 weeks to improve overall daily indep at work/home by improving AROM, strength and FMC as well as reducing pain with daily tasks. TEXT: Thank you for the opportunity to evaluate your patient. For Medicare and Medicare HMO plans, please review the plan of care and approve it. It will need to be FAXED BACK to us at [phone] for Medicare purposes. Please let me know if there are questions or concerns regarding this plan of care. Physician Signature: Date:
--- NOTE | 2024-12-20 15:01 | HP.OTREVAL ---
Re-Evaluation Intro: Dr. Yuniel Rao MD, It has been my pleasure to treat YANI ASHLEY over the last 10 visits for L index finger crush injury. Please see the progress note below for an update on the occupational therapy plan of care! Subjective Subjective: doing well just tired Objective Objective/Function: Roving Frame Tender R 80 L 55 Lateral pinch R 16# L 10# tip tp tip R9# L 0# L hand IF MP 90 L hand IF PIP 85 L hand IF DIP 40 Plan Plan Frequency: 2x /Week Duration: 6 Weeks Visits in this POC: 12 Plan: 6 weeks (2x a week ) Goals Goals Patient Goals: Regain Mobility, Regain Strength, Decrease Pain, Return to Work, Improve Fine Motor Skills, Use Hand/Wrist/Arm Normally Again, Decrease Tingling/Numbness and Be More Independent in ADLS Goal:: pt to demo improved L digital media associate strength by 20# in order to grasp heavier objects during BC tasks pt to demo improved L tip pinch strength by 3# to grasp small items during ADLs pt to demo improved L lateral pinch by 4# for greater use of power pinch with non dominant hand during BC tasks Goal:: pt to demo improved PIP/DIP AROM by 50' for greater use of non domninant hand to make a full fist during grasping tasks Goal:: pt to report no more than 3/10 pain levels during daily functional tasks Goal:: pt to demo improved FMC skills by reducing L 9HPT time by 6 seconds for greater use of L hand at work when manipulating coins Goal:: pt to demo improved overall indep at home/work by reduced DASH score by 15 points Anticipated Interventions Anticipated Interventions Anticipated Interventions: A/AAROM/PROM, Strengthening, Massage, Triggerpoint Release, Desensitization, Sensory Retraining and Fine Motor Coord/Jonathan Re-Evaluation Ending Re-evaluation ending: Please do not hesitate to contact me at [phone] by phone or if you have questions or concerns regarding this new plan of care! Sincerely, Jodi Esteves
== END 2025-02-07 19:00 | disposition home or self-care (01) ==
LOC: OT 07:30
PROVIDERS: Referring Provider Surgery Plastic and Reconstructive Surgery; Visit Provider Surgery Plastic and Reconstructive Surgery
DX: S60.022D Contusion of left index finger without damage to nail, subsequent encounter (principal)
CPT/HCPCS: 97110; 97140; 97165; 97530; 97760

== ENCOUNTER 2025-03-03 12:59 | Emergency (ER) | payer OTHER, SELFPAY ==
[2025-03-03 13:00] VITALS: BP 130/79; PULSE 95; RESP 16; TEMP 36.6; O2SAT 99; BMI 34.4
--- NOTE | 2025-03-03 13:43 | US_ITS ---
PROCEDURE: TRANSVAGINAL NON- 03/03/2025 REASON FOR EXAM: PELVIC PAIN, HEAVY BLEEDING TECHNIQUE: Procedure Code: USTVAG Modality: US Procedure: TRANSVAGINAL NON- COMPARISON: 01/23/2025 FINDINGS: Uterus measures 8.3 x 4.9 x 3.8 cm. It is anteverted in position. There is a fibroid within the right side of the uterus measuring 2.2 x 2.1 x 2.2 cm, which may reflect a submucosal versus intramural fibroid. Endometrial thickness is 3 mm. It is hyperechoic. Nabothian cyst noted at the cervix. No IUD noted. Right ovary measures 4.1 x 1.6 x 2.3 cm and left ovary measures 3.2 x 2.0 x 1.4 cm. There is normal vascular flow within bilateral ovaries. No significant free fluid is noted within the cul-de-sac. US/Transvaginal Non- IMPRESSION: fibroid within the right side of the uterus measuring 2.2 x 2.1 x 2.2 cm, which may reflect a submucosal versus intramural fibroid. Reading Location: [id number]
[2025-03-03 13:52] LABS: Mucous, Urine 0 SEEN /hpf (<or=2+)
[2025-03-03] MEDS: 0.9% Normal Saline (1000mL) 1,000 ML 1000 ML IV (13:52)
[2025-03-03 13:57] LABS: Color, Urine Yellow (Yellow); Glucose, Dipstick Normal (Normal); Ketone-Dipstick Negative (Negative); Leukocyte Esterase-Dipstick Negative /ul (Negative); Nitrite-Dipstick Negative (Negative); Occult Blood-Urine 25 /ul (Negative); Protein-Dipstick 15 mg/dl (Negative); Specific Gravity, Urine 1.025 (1.002-1.030); Urine Bilirubin Dipstick Negative (Negative)
[2025-03-03 14:03] LABS: Squamous Epithelial Cells - UA 0-5 SEEN /hpf (5-10)
[2025-03-03 14:04] LABS: Red Blood Cells-Urine 0-5 SEEN /hpf (0-5)
[2025-03-03 14:05] LABS: Internal QC Validated? YES +Cl - CLEAR BKGD; Pregnancy, Urine Negative Negative; Record Kit Lot#,Urine Preg 0000980607
--- NOTE | 2025-03-03 14:25 | ED.VIS.FEGU ---
HPI HPI - Female History of Present Illness Chief Complaint: Female C/O Narrative Narrative: Chief complaint and HPI: 24-year-old female with past medical history of complex regional pain syndrome, uterine fibroid, irregular and heavy menstrual cycle bleeding presents for evaluation of pelvic pain and vaginal bleeding. Patient states that she has had vaginal bleeding for over a month. It is intermittent and a heaviness. She follows with [facility] in which she is scheduled for another outpatient ultrasound due to a known fibroid. She states she gets intermittent and pelvic cramping from the bleeding. It worsened today which caused nausea and vomiting. She states that she does not take regular Tylenol or Advil for the pain. She denies any fever, chills, shortness of breath, chest pain, URI symptoms, diarrhea, constipation, dysuria. Denies as she is not sexually active. No concern for STI. Review of systems: See HPI Medications: As listed on the chart Allergies: As listed on the chart PFSH: Per chart Vital signs: As listed on the chart. Reviewed. Physical exam: Gen: A&O x3, NAD Head: Normocephalic, atraumatic Eyes: No sclera icterus, conjunctiva clear ENT: Moist mucous membranes CV: RRR, no murmurs Resp: Lungs CTA BL, no w/r/c GI: Abd soft, non-distended, non-tender, no r/r/g : No CVA tenderness Musc: Full ROM, no deformity Skin: Warm, dry Neuro: Alert, oriented, grossly intact, sensation intact Psych: Cooperative, appropriate mood and affect [facility] Medical History Ovarian cyst Complex regional pain syndrome Home Medications ?Medication ?Instructions ?Recorded ?Last Taken ?Type ascorbate calcium (vitamin C) 500 500 mg PO DAILY 09/29/24 09/29/24 History mg tablet cyanocobalamin (vitamin B-12) 500 500 mcg PO DAILY 09/29/24 09/29/24 History mcg tablet (B-12 DOTS) medroxyprogesterone 10 mg tablet 20 mg (2 x 10 mg) PO QDAY #60 tabs 01/17/25 Unknown Rx dicyclomine 10 mg capsule 20 mg (2 x 10 mg) PO TIDAC #20 01/23/25 Unknown Rx CAPSULES norethindrone acetate 5 mg tablet mg PO 01/24/25 Unknown History (Randy) Allergy/AdvReac Type Severity Reaction Status Date / Time No Known Allergies Allergy Verified 03/03/25 13:03 Family History Grandfather Heart disease Diabetes Mother Asthma Surgical History History of placement of ear tubes Social History adopted: No household members: none housing: apartment number of children: 0 current occupational status: employed current occupation: [employer] current occupational exposures/hazards: No pets and animals: No history of recent travel: No sexually active: Yes Smoking Status: Former smoker second hand exposure: No alcohol intake: current alcohol intake frequency: a few times a month substance use type: does not use well-balanced diet: daily or most days caffeine: No eating out: rarely or never during the past year weight has: remained stable what type of physical activity do you participate in: none larry/mandaen: Religious seatbelt use: always do you feel safe at home: Yes additional social history: single EXAM Physical Exam Const Vital Signs: 03/03/25 13:00 03/03/25 15:33 Temperature 97.9 F Temperature Source Oral Pulse Rate 95 81 Respiratory Rate 16 18 Blood Pressure 130/79 H 117/72 Blood Pressure Mean 96 87 Pulse Ox 99 100 Oxygen Delivery Method Room Air MDM MDM MDM Narrative Medical decision making narrative: 24-year-old female with past medical history of complex regional pain syndrome, uterine fibroid, irregular and heavy menstrual cycle bleeding presents for evaluation of pelvic pain and vaginal bleeding. Patient states that she has had vaginal bleeding for over a month. It is intermittent and a heaviness. She follows with [facility] in which she is scheduled for another outpatient ultrasound due to a known fibroid. She states she gets intermittent and pelvic cramping from the bleeding. It worsened today which caused nausea and vomiting. On presentation, patient no acute distress. Vitals are stable. Differential diagnosis includes but is not limited to dysfunctional uterine bleeding, menorrhagia, uterine fibroid, ovarian cyst, UTI. NS bolus, Toradol, Zofran ordered for symptoms. Laboratory workup ordered including transvaginal ultrasound. On chart review, patient has been seen in our emergency department for similar complaints in the past. Her last transvaginal ultrasound was 01/23/2025 in which she had a right uterine body intramural fibroid. UA positive for blood but negative for UTI. Urine negative. CBC with leukocytosis 11.8. No anemia. Platelets unremarkable. CMP unremarkable. Lipase unremarkable. Transvaginal pelvic ultrasound pending at this time. Patient signed out to oncoming physician. They will wait for ultrasound results. Lab Data Labs: Laboratory Results - last 24 hr 03/03/25 13:45 Urine Color Yellow Urine Clarity Clear Urine pH 6.0 Ur Specific [place] 1.025 Urine Protein 15 H Urine Glucose (UA) Normal Urine Ketones Negative Urine Occult Blood 25 H Urine Nitrite Negative Urine Bilirubin Negative Urine Urobilinogen Normal Ur Leukocyte Esterase Negative Urine RBC 0-5 SEEN Urine WBC 0 SEEN Ur Squamous Epith Cells 0-5 SEEN Urine Bacteria 0 SEEN Urine Mucus 0 SEEN Urine Test Negative Discharge Plan Triage Chief Complaint: Female C/O ED Provider: Dandy Lomax Dx/Rx/DC Orders Prescriptions: No Action norethindrone acetate [[place]] 5 mg tablet PO ascorbate calcium (vitamin C) 500 mg tablet 500 mg PO DAILY cyanocobalamin (vitamin B-12) [B-12 DOTS] 500 mcg tablet 500 mcg PO DAILY dicyclomine 10 mg capsule 20 mg PO TIDAC Qty: 20 0RF medroxyprogesterone 10 mg tablet 20 mg PO QDAY Qty: 60 0RF Rx Instructions: take 2 pills a day for 5 days then decrease to 1 pill a day for the remainder of the prescription Primary Care Provider: Care Physician,No Primary Referrals: Care Physician,No Primary [Primary Care Provider, Medical] Print Language: Citizen [place]
[2025-03-03 15:33] VITALS: BP 117/72; PULSE 81; RESP 18; O2SAT 100
[2025-03-03 16:30] VITALS: BP 121/79; PULSE 90; O2SAT 100
[2025-03-03 17:09] VITALS: BP 127/70; PULSE 83; RESP 18; TEMP 36.6; O2SAT 100
== END 2025-03-03 17:10 | disposition home or self-care (01) ==
PROVIDERS: Emergency Provider Surgery; Visit Provider Surgery
DX: N92.4 Excessive bleeding in the premenopausal period (principal); Z87.891 Personal history of nicotine dependence; D25.9 Leiomyoma of uterus, unspecified
CPT/HCPCS: 76830; 81001; 81025; 96361; 96374; 96375; 99282; A4216; J2405

== ENCOUNTER → 2025-03-16 | Outpatient (CLI) | payer OTHER, SELFPAY ==
[2025-03-18 16:08] LABS: VWD Studies Interp Report Note (.)
== END | disposition home or self-care (01) ==
LOC: LAB 08:58
PROVIDERS: Referring Provider Obstetrics & Gynecology; Visit Provider Obstetrics & Gynecology
DX: N92.0 Excessive and frequent menstruation with regular cycle (principal); N92.6 Irregular menstruation, unspecified
CPT/HCPCS: 36415; 82627; 82670; 84443; 85240; 85245; 85246; 82626

== ENCOUNTER → 2025-04-04 | Outpatient (CLI) | payer OTHER, SELFPAY ==
--- NOTE | 2025-04-04 10:59 | MRI_ITS ---
EXAM: PELVIS W/WO CONTRAST 04/04/2025 CLINICAL HISTORY: UTERINE FIBROID. TECHNIQUE: Procedure Code: [id number] Modality: MR Procedure: PELVIS W/WO CONTRAST Multiplanar and multisequence images were obtained intravenous gadolinium contrast. CONTRAST: Clariscan VOLUME: 20 mL COMPARISON: March 03, 2025, January 23, 2025 FINDINGS: Anterior compartment: Bladder is nearly empty but otherwise normal. Bladder neck is in normal position. Middle compartment: The vagina is unremarkable. Uterus is anteverted. Within the body of the uterus there is a fibroid that is homogeneously low signal. This abuts the junctional zone (FIGO 3) measures 2.0 x 1.5 x 2.2 cm. The endometrium is not thickened. Follicles are present and otherwise unremarkable ovaries. Incidental note is made of a paraovarian simple cyst on the right measuring 1.5 x 1.2 cm. Posterior compartment: Colon is unremarkable. Peritoneum: Small volume free fluid in the cul-de-sac. No lymphadenopathy. MRI/Pelvis W/WO Contrast IMPRESSION: 1. FIGO 3 fibroid right uterine body. 2. Right paraovarian cyst is benign. Reading Location: [id number]
== END | disposition home or self-care (01) ==
PROVIDERS: Referring Provider Obstetrics & Gynecology; Visit Provider Obstetrics & Gynecology
DX: N92.6 Irregular menstruation, unspecified (principal); N92.0 Excessive and frequent menstruation with regular cycle
CPT/HCPCS: 72197; A9575